=== PATIENT | female | born 1985 ===

== ENCOUNTER 2021-10-07 09:08 | Outpatient (REF) | payer OTHER, SELFPAY ==
[2021-10-07 12:49] LABS: Thyroid Stimulating Hormone 1.19 uIU/mL (0.32-4.0)
[2021-10-08 02:50] LABS: CT PCR DETECTED (Not Detect.); NG PCR NOT DETECTED (Not Detect.)
[2021-10-08 12:06] LABS: BV Int Neg Control Negative (Negative); BV Int Pos Control Positive (Positive)
[2021-10-09 05:06] LABS: DHEA Sulfate 57 mcg/dL (23-266)
[2021-10-10 09:57] LABS: HPV mRNA E6/E7 rflx Not Detected (Not Detected)
[2021-10-11 16:01] LABS: Testosterone, Free 1.8 pg/mL (0.1-6.4); Testosterone, Total 22 ng/dL (2-45)
== END 2021-10-07 09:09 | disposition home or self-care (01) ==
LOC: HO.LAB 09:08
PROVIDERS: PCP Nurse Practitioner Family; Visit Provider Advanced Practice Midwife
DX: Z01.419 Encounter for gynecological examination (general) (routine) without abnormal findings (principal); L70.9 Acne, unspecified; E66.8 Other obesity; R23.4 Changes in skin texture; R10.2 Pelvic and perineal pain; N89.8 Other specified noninflammatory disorders of vagina; N92.6 Irregular menstruation, unspecified; N91.2 Amenorrhea, unspecified
CPT/HCPCS: 36415; 82627; 83498; 84146; 84402; 84403; 84443; 87480; 87491; 87510; 87591; 87624; 87660; 88142

== ENCOUNTER 2021-10-11 00:30 | Emergency (ER) | payer OTHER, SELFPAY ==
[2021-10-11 00:32] VITALS: BP 128/64; PULSE 72; RESP 18; TEMP 36.8; O2SAT 97; BMI 51.9
--- NOTE | 2021-10-11 00:59 | ED_ITS ---
HPI - Back Pain/Injury General Chief Complaint: Back Pain/Injury Stated Complaint: Back pain Time Seen by Provider: 10/11/21 00:48 Source: patient Mode of arrival: ambulatory History of Present Illness HPI Narrative: 36-year-old female with history of mild asthma presents with onset of back pain on the left side near the shoulder blade after she carried a 3 gal fish tank up the stairs. This has not been associated with any urinary symptoms, nausea, vomiting, fever, chills, new cough, sore throat and patient states she is able to have full range of motion at the left shoulder but feels the pain into the anterior portion of her chest wall. She states she was able to go to sleep after taking Aleve and applying ice to her back but then was awakened and states that it feels like somebody has the knuckle of a finger in her back. Related Data Previous Rx's Medication Instructions Recorded medroxyprogesterone 10 mg tablet 10 mg PO DAILY #10 tab 10/07/21 (Provera) vitamin with calcium 1 tab PO DAILY #30 tab 10/07/21 no.72-iron 27 mg-folic acid 1 mg tablet ( Vitamins Plus Low Iron) azithromycin 500 mg tablet 1,000 mg PO ONCE 1 Days #2 tab 10/10/21 (Zithromax) metronidazole 500 mg tablet 500 mg PO BID 7 Days #14 tab 10/10/21 cyclobenzaprine 5 mg tablet 5 mg PO BEDTIME PRN #3 tab 10/11/21 ketorolac 10 mg tablet 10 mg PO Q6H PRN 5 Days #20 tab 10/11/21 Allergies Allergy/AdvReac Type Severity Reaction Status Date / Time No Known Allergies Allergy Verified 10/07/21 09:47 Review of Systems Review of Systems: Pertinent positives and negatives as stated in HPI 10 point review of systems is otherwise negative. [facility] Past Medical History Source: nursing notes reviewed Medical History Extreme obesity Seasonal allergies Surgical History Hx of breast reduction, elective Hx of tonsillectomy Social History Social History Patient Tobacco Use Status: Never used Tobacco Advance Directives: No Advance Directives Information Provided: No Patient : No Physical Exam Vital Signs: Vital Signs: Last Vital Signs Temp 98.3 F 10/11/21 00:32 Pulse 72 10/11/21 00:32 Resp 18 10/11/21 00:32 BP 128/64 10/11/21 00:32 Pulse Ox 97 10/11/21 00:32 Body Mass Index 51.9 VITAL SIGNS: Reviewed. GENERAL: Obese, Well developed, well nourished, in no acute distress. HEAD: Normocephalic/atraumatic EYES: PERRLA, EOMI OROPHARYNX: no oral lesions noted, posterior pharynx clear LUNGS: Normal breath sounds. No adventitious sounds or accessory muscle use. SpO2<97> CARDIOVASCULAR: Regular rate and rhythm without noted murmurs, no JVD or lower extremity edema. ABDOMEN: Soft, non-tender, non-distended with bowel sounds, no CVA tenderness BACK: Noted muscle spasm to the medial aspect of the left scapula with reproducible pain on palpation SKIN: Inspection of the skin reveals no rashes NEUROLOGIC: Alert and oriented x 4. Course Course Course Narrative: 36-year-old female with history and clinical presentation consistent with muscle spasm. There is low clinical suspicion for any intrathoracic/renal etiology. Patient will be provided with combination analgesics and re-evaluated. On re-evaluation, patient states that she is feeling much better and is otherwise discharged home in stable condition. Discharge Plan Discharge Clinical Impression: Muscle spasm Patient Disposition: Home, Self-Care Instructions: Muscle Spasm (ED) Additional Instructions: 1. Tylenol 1000 mg, orally, every 6 hours as needed for pain control. Do not exceed 4000 mg within 24 hours. 2. Lidocaine patch, this is available [id number], should be apply to area of maximal tenderness as directed on the outside packaging. 3. Continue to do the stretching exercises that were demonstrated here in the emergency room. Do not hesitate to return to the emergency room should you develop any acute worsening of symptoms. Prescriptions: New cyclobenzaprine 5 mg tablet 5 mg PO BEDTIME PRN (Reason: muscle spasm) Qty: 3 RF: 0 ketorolac 10 mg tablet 10 mg PO Q6H PRN (Reason: pain) 5 Days Qty: 20 RF: 0 No Action azithromycin [Zithromax] 500 mg tablet 1,000 mg PO ONCE 1 Days Qty: 2 RF: 0 metronidazole 500 mg tablet 500 mg PO BID 7 Days Qty: 14 RF: 0 medroxyprogesterone [Provera] 10 mg tablet 10 mg PO DAILY Qty: 10 RF: 0 Vitamin Plus Low Iron 27 mg iron- 1 mg tablet 1 tab PO DAILY Qty: 30 RF: 11 Referrals: David Martinez, [facility] [Primary Care Provider] - 2 days
[2021-10-11] MEDS: Ketorolac Tromethamine 15 MG/ML VIAL IM (01:20)
[2021-10-11] MEDS: Acetaminophen 325 MG TABLET 975 MG PO (01:20)
[2021-10-11] MEDS: Cyclobenzaprine HCl 5 MG TABLET PO (01:21)
[2021-10-11] MEDS: Lidocaine 4 % Patch ADH..PATCH 1 PATCH TRANSDERMA (01:22)
[2021-10-11 02:44] VITALS: BP 151/92; PULSE 76; RESP 20; TEMP 36.2; O2SAT 99
== END 2021-10-11 02:45 | disposition home or self-care (01) ==
PROVIDERS: Emergency Provider Student in an Organized Health Care Education/Training Program; PCP Nurse Practitioner Family
DX: M62.838 Other muscle spasm (principal); J45.909 Unspecified asthma, uncomplicated
CPT/HCPCS: 96372; 99283; 99284; J1885

== ENCOUNTER 2021-11-19 12:12 | Outpatient (REF) | payer OTHER, SELFPAY ==
--- NOTE | ~2021-11-19 | US_ITS ---
EXAMINATION: US PELVIS CLINICAL INFORMATION: Irregular menstruation COMPARISON: None TECHNIQUE: Ultrasound of the pelvis is performed using both transabdominal and transvaginal transducers along with Doppler. Transvaginal imaging is performed due to inadequate visualization transabdominally. FINDINGS: Uterus: The uterus is anteverted and measures 10.0 x 6.8 x 5.9 cm. The double wall endometrial thickness is 47 mm. The uterus is smooth in contour and has heterogeneous myometrial echogenicity. No visible fibroid. Adnexa: Both ovaries are visualized. There is normal color flow to the adnexa. There is no ovarian torsion. There is no pelvic ascites or fluid collection. Right ovary measures 3.4 x 2.5 x 3.1 cm. Left ovary measures 4.0 x 3.0 x 3.4 cm. There is a 3.0 x 2.9 x 3.5 cm cyst in the left ovary. US/US pelvic and transvaginal IMPRESSION: 1. 3.5 cm left ovarian cyst. 2. Diffusely heterogeneous echotexture of the uterus. This may suggest adenomyosis. Consider pelvic MRI for further evaluation if warranted.
== END 2021-11-19 12:13 | disposition home or self-care (01) ==
LOC: HO.US 12:12
PROVIDERS: PCP Nurse Practitioner Family; Visit Provider Advanced Practice Midwife
DX: N92.6 Irregular menstruation, unspecified (principal); E66.8 Other obesity; L70.9 Acne, unspecified; R23.4 Changes in skin texture
CPT/HCPCS: 76830; 76856

== ENCOUNTER → 2021-11-26 10:46 | Outpatient (BNVA) | payer OTHER, SELFPAY | PROVIDERS: PCP Nurse Practitioner Family; Visit Provider Advanced Practice Midwife | DX: Z71.2 Person consulting for explanation of examination or test findings (principal) | CPT/HCPCS: 99212 ==

== ENCOUNTER 2022-01-10 09:14 | Outpatient (REF) | payer OTHER, SELFPAY ==
[2022-01-11 14:24] LABS: BV Int Neg Control Negative (Negative); BV Int Pos Control Positive (Positive)
[2022-01-11 15:00] LABS: CT PCR NOT DETECTED (Not Detect.); NG PCR NOT DETECTED (Not Detect.)
== END 2022-01-10 09:15 | disposition home or self-care (01) ==
LOC: HO.LAB 09:14
PROVIDERS: PCP Nurse Practitioner Family; Visit Provider Advanced Practice Midwife
DX: A74.9 Chlamydial infection, unspecified (principal); Z20.2 Contact with and (suspected) exposure to infections with a predominantly sexual mode of transmission; Z71.89 Other specified counseling
CPT/HCPCS: 87480; 87491; 87510; 87591; 87660; 99212

== ENCOUNTER → 2022-03-21 14:52 | Outpatient (BNVA) | payer OTHER, SELFPAY | PROVIDERS: PCP Nurse Practitioner Family; Referring Provider Nurse Practitioner Family; Visit Provider Physician Assistant | DX: Z13.89 Encounter for screening for other disorder (principal) ==

== ENCOUNTER 2022-05-05 13:46 | Outpatient (REF) | payer OTHER, SELFPAY ==
[2022-05-06 06:29] LABS: CT PCR NOT DETECTED (Not Detect.); NG PCR NOT DETECTED (Not Detect.)
[2022-05-06 11:02] LABS: BV Int Neg Control Negative (Negative); BV Int Pos Control Positive (Positive)
== END 2022-05-05 13:47 | disposition home or self-care (01) ==
LOC: HO.LAB 13:46
PROVIDERS: PCP Nurse Practitioner Family; Visit Provider Advanced Practice Midwife
DX: Z11.3 Encounter for screening for infections with a predominantly sexual mode of transmission (principal); N94.9 Unspecified condition associated with female genital organs and menstrual cycle; R30.0 Dysuria; Z20.2 Contact with and (suspected) exposure to infections with a predominantly sexual mode of transmission
CPT/HCPCS: 81003; 87480; 87491; 87510; 87591; 87660; 99212

== ENCOUNTER → 2022-05-28 12:26 | Outpatient (BNVA) | payer OTHER, SELFPAY | PROVIDERS: PCP Nurse Practitioner Family; Visit Provider Physician Assistant | DX: E66.01 Morbid (severe) obesity due to excess calories (principal); Z68.42 Body mass index [BMI] 45.0-49.9, adult | CPT/HCPCS: 99202; 99211 ==

== ENCOUNTER 2022-05-28 16:14 | Outpatient (REF) | payer OTHER, SELFPAY ==
[2022-05-31 14:11] LABS: H Pylori Breath Test Positive (Negative)
== END 2022-05-28 16:15 | disposition home or self-care (01) ==
LOC: HO.LNP 16:14
PROVIDERS: Visit Provider Physician Assistant
DX: E66.01 Morbid (severe) obesity due to excess calories (principal)
CPT/HCPCS: 83013

== ENCOUNTER 2022-06-16 07:31 | Outpatient (REF) | payer OTHER, SELFPAY ==
--- NOTE | ~2022-06-16 | XR_ITS ---
EXAMINATION: XR CHEST CLINICAL INFORMATION: Morbid obesity COMPARISON: None TECHNIQUE: 2 views of the chest were obtained. FINDINGS: Normal symmetric lung volumes. No parenchymal consolidation. No pleural effusion. No pneumothorax. Cardiomediastinal silhouette and pulmonary vascularity are within normal limits. No acute osseous abnormalities. XR/XR chest 2V IMPRESSION: Lungs are clear.
--- NOTE | 2022-06-16 07:39 | ECG_ITS ---
Test Reason : morbid obesity Blood Pressure : / mmHG Vent. Rate : 069 BPM Atrial Rate : 069 BPM P-R Int : 140 ms QRS Dur : 086 ms QT Int : 376 ms P-R-T Axes : 018 026 014 degrees QTc Int : 402 ms Normal sinus rhythm Normal ECG No previous ECGs available Referred By: Sheri Mejia Electronically Signed By:Aries Joe
[2022-06-16 08:05] LABS: MANUAL DIFF FLAG NO
[2022-06-16 08:54] LABS: Basophils Percent Auto 0.5 % (0-2); Eosinophils Absolute Auto 0.2 X10*3/uL (0.0-0.4); Eosinophils Percent Auto 2.6 % (0-4); Hematocrit 40.4 % (37.0-47.0); Hemoglobin 13.5 g/dl (12.0-16.0); Imm Gran Abs Auto 0.02 X10*3/uL (0.00-0.03); Imm Gran Pct Auto 0.3 % (0.0-0.4); Lymphocytes Absolute Auto 1.9 X10*3/uL (1.2-4.9); Lymphocytes Percent Auto 31.4 % (20-40); Mean Corpuscular HGB Conc 33.4 g/dl (31.0-35.0); Mean Corpuscular Hemoglobin 29.3 pg (27.0-33.0); Mean Corpuscular Volume 87.8 fL (80.0-98.0); Mean Platelet Volume 9.4 fL (9.4-12.3); Monocytes Absolute Auto 0.4 X10*3/uL (0.1-1.2); Neutrophils Absolute Auto 3.6 x10*3/uL (2.0-8.3); Neutrophils Percent Auto 58.2 % (45-73); Platelet Count 370 X10*3/uL (160-400); Red Cell Distribution Width 13.3 % (11.0-16.0); White Blood Count 6.2 X10*3/uL (4.8-10.8)
[2022-06-16 08:56] LABS: Estimated Average Glucose 103 mg/dL; Hemoglobin A1c % 5.2 %
[2022-06-16 09:35] LABS: Alanine Aminotransferase 19 U/L (0-31); Alkaline Phosphatase 74 U/L (39-117); Anion Gap 11 (12-20); Aspartate Amino Transferase 18 U/L (5-31); Bilirubin Total 0.5 mg/dL (0.0-1.0); Blood Urea Nitrogen 11 mg/dL (9-16); C Reactive Protein 0.63 mg/dL (< or = 0.50); Calcium 9.1 mg/dL (8.4-10.2); Carbon Dioxide 28 mmol/L (22-29); Chloride 105 mmol/L (96-108); Cholesterol 175 mg/dL; Estimated Glomerular Filt Rate > 60; Glucose Fasting 92 mg/dL (60-99); HDL Cholesterol 45 mg/dL; Iron 58 mcg/dL (30-160); LDL Cholesterol Calculated 113 mg/dl; Percent Iron Saturation 16 % (15-50); Potassium 4.5 mmol/L (3.3-5.1); Sodium 139 mmol/L (135-145); Total Iron Binding Capacity 358 mcg/dL (228-428); Total Protein 7.1 g/dL (6.5-8.0); Triglycerides 86 mg/dL; Unsaturated Iron Binding 300 ug/dL
[2022-06-16 09:39] LABS: Ferritin 18 ng/mL (10-122); Vitamin D 25-OH Total 20.2 ng/mL (>30)
[2022-06-16 09:41] LABS: Appearance Urine CLEAR; Color Urine YELLOW; Glucose Urine UA NEG (NEG); Leukocyte Esterase Urine NEG (NEG); Nitrite Urine NEG (NEG); Specific Gravity - Urine >= 1.030 (1.005-1.025); Urine Blood NEG (NEG); Urine Ketones NEG (NEG); Urine Protein NEG (NEG-TRACE)
[2022-06-16 09:51] LABS: Insulin 21 uU/mL (2-29)
[2022-06-16 09:58] LABS: Folate 14.8 ng/mL (> or = 4.0); Vitamin B12 351 pg/mL (200-900)
[2022-06-18 12:55] LABS: Calcium (PTHI) 9.3 mg/dL (8.6-10.2); PTHI 45 pg/mL (16-77)
[2022-06-20 15:56] LABS: Zinc 76 mcg/dL (60-130)
[2022-06-21 14:56] LABS: Vitamin B1 10 nmol/L (8-30)
[2022-06-21 23:52] LABS: Vitamin A 39 mcg/dL (38-98)
== END 2022-06-16 07:32 | disposition home or self-care (01) ==
LOC: HO.XRAY 07:31
PROVIDERS: Absent Provider Nurse Practitioner Family; PCP Nurse Practitioner Family; Visit Provider Physician Assistant
DX: Z00.00 Encounter for general adult medical examination without abnormal findings (principal); E66.01 Morbid (severe) obesity due to excess calories; F43.23 Adjustment disorder with mixed anxiety and depressed mood; F43.21 Adjustment disorder with depressed mood
CPT/HCPCS: 36415; 71046; 80053; 80061; 81003; 82306; 82607; 82728; 82746; 83036; 83525; 83540; 83970; 84425; 84443; 84590; 84630; 85025; 86140; 90791; 93005

== ENCOUNTER → 2022-06-17 07:47 | Outpatient (BNVA) | payer OTHER, SELFPAY | PROVIDERS: PCP Nurse Practitioner Family; Visit Provider Physician Assistant | DX: K59.09 Other constipation (principal); F43.21 Adjustment disorder with depressed mood | CPT/HCPCS: 99202; 99212 ==

== ENCOUNTER → 2022-06-23 14:58 | Outpatient (BNVA) | payer OTHER, SELFPAY | PROVIDERS: PCP Nurse Practitioner Family; Visit Provider Dietitian, Registered | DX: E66.01 Morbid (severe) obesity due to excess calories (principal); Z71.3 Dietary counseling and surveillance | CPT/HCPCS: 97802 ==

== ENCOUNTER 2022-09-29 | Outpatient (REF) | payer OTHER, SELFPAY | END 2022-09-29 00:01 | disposition home or self-care (01) | LOC: HO.HOSX | PROVIDERS: Visit Provider Physician Assistant | DX: Z13.89 Encounter for screening for other disorder (principal) ==

== ENCOUNTER 2023-09-23 09:26 | Outpatient (AMB) | payer OTHER, SELFPAY ==
--- NOTE | 2023-09-23 09:27 | A.OFFPC_ITS ---
Vital Signs 09/23/23 09:30 Height 5 ft 5 in Weight 283 lb BMI 47.1 BP 118/78 Pulse 78 Pulse Source Pulse Oximeter Pulse Oximetry (%) 98 Oxygen Delivery Method Room Air Intake Visit Reasons: F/U Allergies No Known Allergies Allergy (Verified 09/23/23 09:30) Medication List - Last Reconciled 09/23/23 by NOMAN Kramer sumatriptan succinate take 1 tab at onset of headache; if no relief may repeat 1 tab after at least 2 hrs; max = 4 tabs/24 hr PO Tobacco use date assessed: 09/23/23 Dental Screening Dental Screen Date: 09/23/23 Did you have a dental visit in the last 12 months?: Yes Did you have a dental problem in the last 6 months where you did not have access to dental care?: No Was dental information given to patient?: Patient has dentist HPI F/U HPI Details Pt is here for a PE. Will order labs. Pt c/o bilat headaches. She has tried OTC meds with no relief. Will send sumatriptan. Will also order head CT. Pt reports hair loss. ? PCOS component. Will refer to dermatology. Pt is interested in medical weight loss. Will refer to bariatrics. [facility] Medical History Extreme obesity Grief reaction Seasonal allergies Surgical History Hx of breast reduction, elective Hx of tonsillectomy Family History Paternal Uncle No problems noted. Maternal Uncle Substance use disorder Mother Mental health disorder Social History Housing: Apartment Patient Tobacco Use Status: Never used Tobacco e-Cigarette/Vaping Use: Never Used Second Hand Smoke Exposure: No service: No Current occupational status: employed Current occupation: [employer] Current occupational exposures/hazards: No Cognitive needs: No Hearing needs: No Vision needs: No Female Reproductive History Menstrual Age of Menarche: 13 Questionnaire Thrive Questionnaire Date Thrive assessed: 04/24/22 JOSE ELIAS-7 AMB Questionnaire JOSE ELIAS-7 Date JOSE ELIAS - 7 assessed: 04/24/22 Source: Developed by Drs. Kingston Chamberlain, Aspen Fowler, José Miguel Holland and colleagues, with an educational kathleen from [employer]. Review of Systems Const Denies chills and Denies fever(s) Eyes Denies blurry vision ENT Denies vertigo, Denies dizziness and Denies sore throat Card Denies chest pain at rest, Denies chest pain with activity, Denies diaphoresis, Denies dyspnea and Denies dyspnea on exertion Resp Denies cough, Denies dyspnea, Denies dyspnea on exertion and Denies wheezing GI Denies abdominal pain, Denies melena, Denies hematochezia, Denies constipation, Denies diarrhea and Denies loose stools Denies hematuria Musc Denies numbness and Denies tingling Skin/Breast Denies lesions Neuro Denies vertigo, Denies dizziness, Denies numbness and Denies tingling Psych Denies anxiety, Denies depression, Denies homicidal ideation, Denies suicidal ideation and Denies other (substance abuse) Aller/Immun Denies wheezing Physical exam (Primary Care) Vital Signs: Last Vital Signs Pulse 78 09/23/23 09:30 BP 118/78 09/23/23 09:30 Pulse Ox 98 09/23/23 09:30 Oxygen Delivery Method Room Air 09/23/23 09:30 BMI result Body Mass Index 47.1 Tobacco/Smoking Status: Tobacco use Status Tobacco use date assessed 09/23/23 09/23/23 09:32 Patient Tobacco Use Status Never used Tobacco 09/23/23 09:27 e-Cigarette/Vaping Use Never Used 09/23/23 09:27 Thrive Assessment: Date of Thrive Assessment Date Thrive assessed 04/24/22 09/23/23 09:27 Const General: cooperative Nutritional Appearance: obese morbidly obese Orientation/consciousness: patient oriented x3 HENMT Head: Yes normal to inspection, Yes normocephalic and Yes atraumatic Ears: TM's normal bilaterally Eyes General: appearance normal, both eyes and all related structures Alignment and Position: alignment normal and position normal Neck Neck: Yes normal visual inspection and Yes no lymphadenopathy Thyroid: Thyroid normal Resp Effort & Inspection: normal respiratory effort Auscultation: clear to auscultation bilaterally Cardio Rate: regular rate Rhythm: regular rhythm Heart sounds: S1 normal heart sound present, S2 normal heart sound present and no murmurs GI Palpation (GI): Soft to palpation and nontender Auscultation: normal bowel sounds Skin Other: balding Rashes: no rashes Neuro General: patient oriented x3, moves all extremities, no focal motor deficits, CN's II-XI intact bilaterally and deep tendon reflexes 2+ bilaterally Romberg Test: Negative Psych Appearance: grossly normal Mental Status: mental status grossly normal Speech and movement: Normal speech and movement present Affect: normal affect Attitude: cooperative Thought process: Normal thought process present Thought content: Normal thought content present Insight: Good insight present (Psych) Judgement: Good judgement present (Psych) Assessment and Plan Assessment & Plan (1) Physical exam: Code(s): Z00.00 - Encounter for general adult medical examination without abnormal findings Plan: Labs ordered (2) Bilateral headaches: Code(s): R51.9 - Headache, unspecified Plan: Sumatriptan sent, CT ordered (3) Morbid obesity: Code(s): E66.01 - Morbid (severe) obesity due to excess calories Plan: Referred to bariatric (4) Hair loss: Code(s): L65.9 - Nonscarring hair loss, unspecified Plan: Referred to dermatology Plan The patient agreed to the use of a certified medical biller for this encounter. Scribed for NOMAN Reyna by Jaquelin Roque certified medical biller, on 09/23/2023 at 09:40 EST Orders: Orders Complete Blood Count Auto Diff Today Z00.00 - Encounter for general adult medical examination without abnormal findings Comprehensive Termo. Panel Fast Today Z00.00 - Encounter for general adult medical examination without abnormal findings TSH reflex Free T4 Today Z00.00 - Encounter for general adult medical examination without abnormal findings UA CC w/rflx Micro + Cult Today Z00.00 - Encounter for general adult medical examination without abnormal findings Lipid Panel Today Z00.00 - Encounter for general adult medical examination without abnormal findings CT head/brain wo IV con Today R51.9 - Headache, unspecified Referrals Bariatric Surgery Referral E66.01 - Morbid (severe) obesity due to excess calories Dermatology Referral L65.9 - Nonscarring hair loss, unspecified Medications: New sumatriptan succinate take 1 tab at onset of headache; if no relief may repeat 1 tab after at least 2 hrs; max = 4 tabs/24 hr PO 10 tabs 0RF Coding Level of Care Code Est Pt Prev Care 18-39y([id number]) Diagnoses Physical exam Z00.00 Bilateral headaches R51.9 Morbid obesity E66.01 Hair loss L65.9
[2023-09-23 09:30] VITALS: BP 118/78; PULSE 78; O2SAT 98; BMI 47.1
== END 2023-09-23 14:18 | disposition home or self-care (01) ==
PROVIDERS: PCP Nurse Practitioner Family; Visit Provider Nurse Practitioner Family
DX: Z00.00 Encounter for general adult medical examination without abnormal findings (principal); E66.01 Morbid (severe) obesity due to excess calories; Z68.42 Body mass index [BMI] 45.0-49.9, adult; R51.9 Headache, unspecified; L65.9 Nonscarring hair loss, unspecified
CPT/HCPCS: 99395

== ENCOUNTER 2023-11-10 10:04 | Outpatient (AMB) | payer OTHER, SELFPAY ==
--- NOTE | 2023-11-10 11:06 | A.OFFVIS_ITS ---
Intake VS Expanded 11/10/23 11:17 Height 5 ft 5 in Intake Visit Reasons: TV Re-Establishing SWL Allergies No Known Allergies Allergy (Verified 11/10/23 11:06) Medication List - Last Reconciled 11/10/23 by Kendell Balderrama MD albuterol 90 mcg/actuation mcg inhalation sumatriptan succinate take 1 tab at onset of headache; if no relief may repeat 1 tab after at least 2 hrs; max = 4 tabs/24 hr PO HPI TV Re-Establishing SWL HPI Details Start time: 11.00am, End time: 11.45am ?I spent 35 minutes speaking with the patient on the phone plus an additional 10 minutes reviewing and updating records for a total of 45 minutes HPI Comments History of Present Illness Details Previous weight loss efforts: HM program: 12 lbs, had to quit as her passed Wakes up: 6am, sleeps: 9pm Breakfast: skips Lunch: skips Dinner: 5pm (salad or rice) Snacks: 1pm (fruit and crackers), 7pm (fruit or crackers) Exercise: walking Fluids: Coffee: none, Tea: rarely, soda: rarely (Gingerale), juice: daily a lot (applejuice and orange juice), ETOH: 1-2 per month PFSH Medical History (Updated 11/10/23 @ 11:09 by Kendell Balderrama MD) Migraines GERD (gastroesophageal reflux disease) Grief reaction Extreme obesity Seasonal allergies Surgical History Hx of breast reduction, elective Hx of tonsillectomy Family History Paternal Uncle No problems noted. Maternal Uncle Substance use disorder Mother Mental health disorder Social History Housing: Apartment Patient Tobacco Use Status: Never used Tobacco e-Cigarette/Vaping Use: Never Used Second Hand Smoke Exposure: No service: No Current occupational status: employed Current occupation: [employer]abil[employer] Current occupational exposures/hazards: No Cognitive needs: No Hearing needs: No Vision needs: No Female Reproductive History Menstrual Age of Menarche: 13 Assessment & Plan Assessment & Plan (1) Morbid obesity: Code(s): E66.01 - Morbid (severe) obesity due to excess calories Plan: 1.? Plan for lap sleeve gastrectomy. If diaphragmatic or ventral hernias are present at time of surgery, these will be repaired laparoscopically as well. Risks and complications were discussed in detail including possible conversion to an open procedure, anastomotic leak, bleeding requiring transfusion, small bowel obstruction, , DVT and pulmonary embolism, cardiac, or pulmonary complications, as shelter complications such as anastomotic ulcer, insufficient weight loss and vitamin deficiencies. I emphasized the importance of close follow-up, adherence to instructions and good communication. 2. Nutritional counseling. Start with 2 Isopure INFUSIONS protein shakes (buy at [employer], [employer], [employer], [employer]) (ONE scoop EACH in 8oz water) at 7am-9am and 10am-12pm, 2 protein bars (Zone Perfect protein bars, buy at [employer], [employer], [employer], or [employer]) at 1pm-3pm and 4pm-6pm and dinner at 7pm (10 forks of protein and 10 forks of salad/vegetables). So you do 2 protein shakes, 2 protein bars and one meal per day. Meal to include lean meat (beef, fish, pork, turkey, chicken), or nauruan yogurt, or egg whites, or beans with a salad with olive oil and fruits (berries, pears, apples, kiwi). Avoid salt, breads, potatoes, rice, pasta, desserts. 3. Each shake would be drunk slowly, like coffee in a period of 2 hours. 4. Cut each bar in 4 pieces and eat each piece in 30min ?to make each bar last 2 hours. 5. I emphasized the importance of measuring accurately the food portion and measure it when serving the food in plate 6. The meal portions include 10 full-size forks of meat and 10 full-size forks of salad. You always eat the meat portion but you can replace up to 5 forks for salad/vegetables with rice, potatoes or pasta, or a fruit ?if you like. The less you do it the better weight loss will be. 7. One full-size fork is what it can be scooped on the fork without falling aside and not what can be bit with the fork. Use regular forks like those you find in a typical restaurant. 8.? Please send me weight measurements as soon as possible and then once a week. Always include your diet and exercise plan. 9. Start walking outside daily, tracking calories with a goal of 300 calories per day, daily. Goal is to burn 2000 calories per week on exercise, which means either 300 calories daily, or 400 calories 5 days per week, or 500 calories 4 days per week, or 650 calories 3 days per week. 10. The best choice would be to purchase a stationary bike, elliptical or treadmill at home that can track calories. Let me know if you do so I can give you an exercise plan. 11.?It is important of avoiding and for at least 18 months postoperatively and has been discussed at the infosession. 12. Goal is to lose at least 1.5-2lbs per week 13. Goal to lose 10% of your weight before surgery, which is about 28lbs. Ultimate weight goal: 254lbs before surgery 14. Please follow the diet plan exactly without any change. If you don't like something about the plan or you feel hungry you need to communicate with me so I can help you revise the plan. You should not change the plan yourself. Orders: Orders Hemoglobin A1c Today E66.01 - Morbid (severe) obesity due to excess calories, K21.9 - Gastro-esophageal reflux disease without esophagitis Complete Blood Count Auto Diff Today E66.01 - Morbid (severe) obesity due to excess calories, K21.9 - Gastro-esophageal reflux disease without esophagitis Lipid Panel Today E66.01 - Morbid (severe) obesity due to excess calories, K21.9 - Gastro-esophageal reflux disease without esophagitis IRON PROFILE Today E66.01 - Morbid (severe) obesity due to excess calories, K21.9 - Gastro-esophageal reflux disease without esophagitis Zinc Today E66.01 - Morbid (severe) obesity due to excess calories, K21.9 - Gastro-esophageal reflux disease without esophagitis Vitamin B1 Today E66.01 - Morbid (severe) obesity due to excess calories, K21.9 - Gastro-esophageal reflux disease without esophagitis TSH reflex Free T4 Today E66.01 - Morbid (severe) obesity due to excess calories, K21.9 - Gastro-esophageal reflux disease without esophagitis Vitamin D 25-OH Total Today E66.01 - Morbid (severe) obesity due to excess calories, K21.9 - Gastro-esophageal reflux disease without esophagitis XR chest 2V Today E66.01 - Morbid (severe) obesity due to excess calories, K21.9 - Gastro-esophageal reflux disease without esophagitis ECG 12 lead EKG Today E66.01 - Morbid (severe) obesity due to excess calories, K21.9 - Gastro-esophageal reflux disease without esophagitis Insulin Today E66.01 - Morbid (severe) obesity due to excess calories, K21.9 - Gastro-esophageal reflux disease without esophagitis H Pylori Breath Test Today E66.01 - Morbid (severe) obesity due to excess calories, K21.9 - Gastro-esophageal reflux disease without esophagitis Comprehensive Met. Panel Today E66.01 - Morbid (severe) obesity due to excess calories, K21.9 - Gastro-esophageal reflux disease without esophagitis Vitamin B12 and Folate Today E66.01 - Morbid (severe) obesity due to excess calories, K21.9 - Gastro-esophageal reflux disease without esophagitis C Reactive Protein Today E66.01 - Morbid (severe) obesity due to excess calories, K21.9 - Gastro-esophageal reflux disease without esophagitis Vitamin A Today E66.01 - Morbid (severe) obesity due to excess calories, K21.9 - Gastro-esophageal reflux disease without esophagitis Ferritin Today E66.01 - Morbid (severe) obesity due to excess calories, K21.9 - Gastro-esophageal reflux disease without esophagitis US abdomen comp w elastography Today E66.01 - Morbid (severe) obesity due to excess calories, K21.9 - Gastro-esophageal reflux disease without esophagitis FL upper GI w air Today E66.01 - Morbid (severe) obesity due to excess calories, K21.9 - Gastro-esophageal reflux disease without esophagitis Referrals Behavioral Health Referral E66.01 - Morbid (severe) obesity due to excess calories, K21.9 - Gastro-esophageal reflux disease without esophagitis Nutrition/Dietitian Referral E66.01 - Morbid (severe) obesity due to excess calories, K21.9 - Gastro-esophageal reflux disease without esophagitis Telehealth Telehealth Location of provider rendering services: practice address Location of patient: address on file Patient Identification confirmed using: Name, : Yes Telehealth method: voice only Patient verbally consented to treatment: Yes Patient verbally consented to billing insurance company: Yes Patient informed of any privacy concerns related to visit: Yes Minutes spent on Phone/Video with Pt.: 45 Coding Level of Care Code Tele New Pt Level 4 (16159) Diagnoses Morbid obesity E66.01 Time Spent (min) 45
== END 2023-11-10 11:46 | disposition home or self-care (01) ==
LOC: HO.HBS 10:04
PROVIDERS: PCP Nurse Practitioner Family; Visit Provider Surgery
DX: E66.01 Morbid (severe) obesity due to excess calories (principal)
CPT/HCPCS: 99204

== ENCOUNTER → 2023-11-10 10:04 | Outpatient (BNVA) | payer OTHER, SELFPAY | PROVIDERS: PCP Nurse Practitioner Family; Visit Provider Surgery ==

== ENCOUNTER 2023-11-11 12:22 | Outpatient (REF) | payer OTHER, SELFPAY ==
--- NOTE | ~2023-11-11 | XR_ITS ---
EXAMINATION: XR CHEST CLINICAL INFORMATION: Morbid severe obesity due to excess calories. COMPARISON: 06/16/2022 TECHNIQUE: 2 views of the chest were obtained. FINDINGS: There is no gross pneumothorax. Lung volumes are low. Heart size is normal. No pleural effusion. No focal consolidation to suggest pneumonia. XR/XR chest 2V IMPRESSION: Low lung volumes. No evidence of pneumonia.
[2023-11-11 14:09] LABS: MANUAL DIFF FLAG NO
[2023-11-11 14:44] LABS: Basophils Percent Auto 0.4 % (0-2); Eosinophils Absolute Auto 0.1 X10*3/uL (0.0-0.4); Eosinophils Percent Auto 1.9 % (0-4); Hematocrit 43.1 % (37.0-47.0); Hemoglobin 14.2 g/dl (12.0-16.0); Imm Gran Abs Auto 0.02 X10*3/uL (0.00-0.03); Imm Gran Pct Auto 0.4 % (0.0-0.4); Lymphocytes Absolute Auto 1.8 X10*3/uL (1.2-4.9); Lymphocytes Percent Auto 33.4 % (20-40); Mean Corpuscular HGB Conc 32.9 g/dl (31.0-35.0); Mean Corpuscular Hemoglobin 28.2 pg (27.0-33.0); Mean Corpuscular Volume 85.5 fL (80.0-98.0); Mean Platelet Volume 9.2 fL (9.4-12.3); Monocytes Absolute Auto 0.4 X10*3/uL (0.1-1.2); Monocytes Percent Auto 7.1 % (2-11); Neutrophils Percent Auto 56.8 % (45-73); Platelet Count 366 X10*3/uL (160-400); Red Blood Count 5.04 X10*6/uL (4.20-5.50); Red Cell Distribution Width 13.1 % (11.0-16.0); White Blood Count 5.3 X10*3/uL (4.8-10.8)
[2023-11-11 14:53] LABS: Estimated Average Glucose 105 mg/dL; Hemoglobin A1c % 5.3 % (<6.0)
[2023-11-11 15:17] LABS: Alanine Aminotransferase 16 U/L (0-31); Albumin Level 4.3 g/dL (3.5-5.0); Alkaline Phosphatase 94 U/L (39-117); Anion Gap 15 (12-20); Aspartate Amino Transferase 17 U/L (5-31); Bilirubin Total 0.6 mg/dL (0.0-1.0); Blood Urea Nitrogen 12 mg/dL (9-16); C Reactive Protein 0.87 mg/dL (< or = 0.50); Carbon Dioxide 26 mmol/L (22-29); Chloride 102 mmol/L (96-108); Cholesterol 183 mg/dL (<200); Estimated Glomerular Filt Rate > 60; Glucose Fasting 85 mg/dL (60-99); Glucose Random 85 mg/dL (60-115); HDL Cholesterol 51 mg/dL (>40); Iron 135 mcg/dL (30-160); LDL Cholesterol Calculated 114 mg/dL (<100); Percent Iron Saturation 38 % (15-50); Potassium 3.8 mmol/L (3.3-5.1); Sodium 139 mmol/L (135-145); Total Iron Binding Capacity 359 mcg/dL (228-428); Total Protein 8.3 g/dL (6.5-8.0); Triglycerides 94 mg/dL (<150); Unsaturated Iron Binding 224 ug/dL
[2023-11-11 15:18] LABS: Cholesterol 184 mg/dL (<200); HDL Cholesterol 51 mg/dL (>40); LDL Cholesterol Calculated 114 mg/dL (<100); Triglycerides 96 mg/dL (<150)
[2023-11-11 15:31] LABS: TSH reflex Free T4 0.98 uIU/mL (0.32-4.0)
[2023-11-11 15:34] LABS: Ferritin 24 ng/mL (10-122); Insulin 12 uU/mL (2-29); TSH reflex Free T4 0.96 uIU/mL (0.32-4.0); Vitamin D 25-OH Total 20.4 ng/mL (>30)
[2023-11-11 15:45] LABS: Folate 11.6 ng/mL (> or = 4.0); Vitamin B12 569 pg/mL (200-900)
[2023-11-12 07:53] LABS: Syphilis Screen Nonreactive (Nonreactive)
[2023-11-12 08:10] LABS: HBc Num1 0.11 S/CO (0.00-0.79); HIV AB/AG Nonreactive (Nonreactive); HIV Num 1 0.04 S/CO (0.00-0.99); Hepatitis B Core Antibody Nonreactive (Nonreactive); ~Hepatitis C Antibody Nonreactive (Nonreactive)
[2023-11-15 09:39] LABS: Zinc 73 mcg/dL (60-130)
[2023-11-15 20:09] LABS: Vitamin A 26 mcg/dL (38-98)
[2023-11-17 15:08] LABS: Vitamin B1 10 nmol/L (8-30)
== END 2023-11-11 12:23 | disposition home or self-care (01) ==
LOC: HO.LAB 12:22
PROVIDERS: Advanced Practice Midwife; Absent Provider Nurse Practitioner Family; PCP Nurse Practitioner Family; Visit Provider Surgery
DX: Z00.00 Encounter for general adult medical examination without abnormal findings (principal); Z11.4 Encounter for screening for human immunodeficiency virus [HIV]; E66.01 Morbid (severe) obesity due to excess calories; K21.9 Gastro-esophageal reflux disease without esophagitis; Z20.2 Contact with and (suspected) exposure to infections with a predominantly sexual mode of transmission
CPT/HCPCS: 36415; 71046; 80053; 80061; 82306; 82607; 82728; 82746; 83036; 83525; 83540; 84425; 84443; 84590; 84630; 85025; 86140; 86704; 86780; 86803; 87389; 99395

== ENCOUNTER 2023-11-11 12:30 | Outpatient (AMB) | payer OTHER, SELFPAY ==
--- NOTE | 2023-11-11 12:58 | MHC.OFFVIS ---
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 Doing well with no concerns. She tries to eat healthy and stays active with exercise. Regular monthly menses. Currently is sexually active. Not using condoms. She denies vaginal itching and irritation. STI screening offered; she accepts. Denies family history of breast, ovarian or colon cancer. Last pap smear 2020, negative. [facility], [facility] Medical History Migraines GERD (gastroesophageal reflux disease) Grief reaction Extreme obesity Seasonal allergies Surgical History Hx of breast reduction, elective Hx of tonsillectomy Family History Paternal Uncle No problems noted. 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 Current occupational exposures/hazards: No Sexual orientation: Straight/Heterosexual Gender identity: Female Cognitive needs: No Hearing needs: No Vision needs: No Female Reproductive History Menstrual Age of Menarche: 13 Duration of menses: 3-5 days Date of last menstrual period: 10/31/23 control method: none Total pregnancies: 3 Number of Living Children: 0 Ab spontaneous: 3 Date of last pap smear: 10/08/21 Review of Systems Const All systems reviewed & are unremarkable except as noted in HPI and below Reports as per HPI Eyes Reports no additional complaints ENT Reports no additional complaints Card Reports no additional complaints Resp Reports no additional complaints GI Reports as per HPI and Reports no additional complaints Reports as per HPI Musc Reports no additional complaints Skin/Breast Reports as per HPI Neuro Reports no additional complaints Psych Reports no additional complaints Endo Reports no additional complaints John/Lymph Reports no additional complaints Aller/Immun Reports no additional complaints Physical Exam Vital Signs: Last Vital Signs BP 110/72 11/11/23 12:59 BMI result Body Mass Index 45.9 Const General: cooperative, healthy appearing, no acute distress, well developed and alert Orientation/consciousness: patient oriented x3 HEENT Head: Yes normal to inspection Eyes General: appearance normal, both eyes and all related structures Neck Neck: Yes normal visual inspection Thyroid: Thyroid normal Chest Chest palpation & inspection: normal inspection of the chest and other (no puckering, dimpling, peau de orange, retraction, discharge, masses) Breast/axilla inspection: normal inspection of the breasts Breast/axilla palpation: normal palpation of the breasts Resp Effort & Inspection: normal respiratory effort GI Inspection: Yes normal to inspection Palpation (GI): Soft to palpation Rectal Exam - Female: deferred General: Yes bladder normal to palpation External Female Exam: normal external appearance and normal appearance of the urethra Speculum Exam - Vagina: normal appearance of the vagina, normal palpation and other (White frothy discharge) Speculum Exam - Cervix: normal appearance of the cervix and normal palpation Bimanual exam- vagina & uterus: normal bimanual exam, normal palpation, uterine size normal, bladder normal to palpation, normal palpation and non-tender Bimanual Exam- Adnexa, other: no masses Skin General skin exam: no rashes or lesions noted Rashes: no rashes Neuro General: patient oriented x3 Cognition (Neuro): normal cognition Extrem General: Yes normal to inspection Psych Attitude: cooperative Thought process: Normal thought process present Assessment & Plan Assessment & Plan (1) Encounter for well woman exam with routine gynecological exam: Code(s): Z01.419 - Encounter for gynecological examination (general) (routine) without abnormal findings Plan Discussed: Current recommendations for pap smears per ASCCP guidelines. Breast awareness and periodic breast exams. Maintain a healthy lifestyle including a well balanced diet and routine exercise. Use condoms for STI and prevention. control products available based on CDC efficacy guidelines. Handout on Kyleena Mirena dispensed. Patient advised to follow-up for a consult appointment. All of her questions and concerns were addressed to the best of my ability. RTO in one year for annual hospice registered nurse examination. Orders: Orders CT NG by PCR Today Z20.2 - Contact with and (suspected) exposure to infections with a predominantly sexual mode of transmission Bacterial Vaginosis Panel Today Z20.2 - Contact with and (suspected) exposure to infections with a predominantly sexual mode of transmission Hepatitis B Core Antibody Today Z20.2 - Contact with and (suspected) exposure to infections with a predominantly sexual mode of transmission Syphilis Screen Today Z20.2 - Contact with and (suspected) exposure to infections with a predominantly sexual mode of transmission HIV Ab/Ag Today Z20.2 - Contact with and (suspected) exposure to infections with a predominantly sexual mode of transmission Hepatitis C Antibody Today Z20.2 - Contact with and (suspected) exposure to infections with a predominantly sexual mode of transmission Coding Level of Care Code Est Pt Prev Care 18-39y(65608) Diagnoses Encounter for well woman exam with routine gynecological exam Z01.419
[2023-11-11 12:59] VITALS: BP 110/72; BMI 45.9
== END 2023-11-11 14:12 | disposition home or self-care (01) ==
PROVIDERS: PCP Nurse Practitioner Family; Visit Provider Advanced Practice Midwife
DX: Z01.419 Encounter for gynecological examination (general) (routine) without abnormal findings (principal)
CPT/HCPCS: 99395

== ENCOUNTER 2023-11-11 13:25 | Outpatient (REF) | payer OTHER, SELFPAY ==
[2023-11-11 16:21] LABS: CT PCR NOT DETECTED (Not Detect.); NG PCR NOT DETECTED (Not Detect.)
[2023-11-12 11:56] LABS: BV Int Neg Control Negative (Negative); BV Int Pos Control Positive (Positive)
== END 2023-11-11 13:26 | disposition home or self-care (01) ==
LOC: HO.LNP 13:25
PROVIDERS: Visit Provider Advanced Practice Midwife
DX: Z20.2 Contact with and (suspected) exposure to infections with a predominantly sexual mode of transmission (principal)
CPT/HCPCS: 0353U; 87480; 87510; 87660

== ENCOUNTER 2023-11-20 13:58 | Outpatient (REF) | payer OTHER, SELFPAY ==
--- NOTE | ~2023-11-20 | CT_ITS ---
EXAMINATION: CT HEAD WITHOUT CONTRAST CLINICAL INFORMATION: Frontal right-sided headache. COMPARISON: None. TECHNIQUE: Contiguous axial imaging was performed from the skullbase to vertex without intravenous administration of contrast. This CT examination was performed using dose optimization techniques as appropriate, variously including the following: *Automated exposure control *Adjustment of mA and/or kV according to patient size (this includes techniques or standardized protocols for targeted exams where dose is matched to indication/reason for exam; i.e. extremities or head) *Use of iterative reconstruction technique DLP: 784 mGy-cm. FINDINGS: There is no evidence of acute intracranial hemorrhage or territorial infarction. No abnormal mass effect or midline shift is seen. [place] to white matter differentiation is well preserved. No extra-axial fluid collections are identified. Incidental partially empty sella noted. The ventricles are normal in size. There is no abnormal attenuation within the brain parenchyma. The osseous structures and soft tissues are normal. The mastoid air cells and visualized portions of the paranasal sinuses are well aerated. CT/CT head/brain wo IV con IMPRESSION: No acute intracranial pathology.
== END 2023-11-20 13:59 | disposition home or self-care (01) ==
LOC: HO.CT 13:58
PROVIDERS: PCP Nurse Practitioner Family; Visit Provider Nurse Practitioner Family
DX: R51.9 Headache, unspecified (principal)
CPT/HCPCS: 70450

== ENCOUNTER 2024-05-03 12:13 | Outpatient (AMB) | payer OTHER, SELFPAY ==
--- NOTE | 2024-05-03 12:30 | A.OFFPC_ITS ---
Vital Signs 05/03/24 12:32 Height 5 ft 5 in Weight 297 lb BMI 49.4 BP 120/76 Blood Pressure Location Rt brachial Position Sitting Pulse 76 Pulse Source Pulse Oximeter Pulse Oximetry (%) 98 Oxygen Delivery Method Room Air Intake Visit Reasons: 4M F/U missed on due to 01/25/24 insurance lapsed Intake Note: Patient here to discuss left sciatic pain that radiates down the leg and feels numb Allergies No Known Allergies Allergy (Verified 05/03/24 12:33) Medication List - Last Reconciled 05/03/24 by NIRAV Kramer-ANKITA albuterol 90 mcg/actuation mcg inhalation amitriptyline 10 mg PO BEDTIME cholecalciferol (vitamin D3) 125 mcg PO DAILY trazodone 50 mg PO BEDTIME PRN vitamin A palmitate 10,000 units PO DAILY Tobacco use date assessed: 05/03/24 Dental Screening Dental Screen Date: 05/03/24 Did you have a dental visit in the last 12 months?: Yes Did you have a dental problem in the last 6 months where you did not have access to dental care?: No Was dental information given to patient?: Patient has dentist HPI 4M F/U missed on due to 01/25/24 insurance lapsed HPI Details Pt c/o insomnia. She reports only being able to sleep for 2-3 hours per night. Pt has tried melatonin which did not help. Will send trazodone 50mg. Pt c/o left hip pain. Pt reports that the pain is worse with sitting for long periods. She reports that the pain radiates to her left thigh. She denies any popping or clicking. ? meralgia paresthetica. Recommended a stretching routine at home. Pt saw bariatrics but she would like a different provider, will refer. [facility] Medical History (Updated 05/03/24 @ 13:19 by NOMAN Kramer) Meralgia paresthetica of left side Spasm of left piriformis muscle Migraines GERD (gastroesophageal reflux disease) Grief reaction Extreme obesity Seasonal allergies Surgical History Hx of breast reduction, elective Hx of tonsillectomy Family History Paternal Uncle No problems noted. 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 1. Little interest or pleasure in doing things: nearly every day 2. Feeling down, depressed, or hopeless: nearly every day 3. Trouble falling or staying asleep, or sleeping too much: nearly every day 4. Feeling tired or having little energy: nearly every day 5. Poor appetite or overeating: nearly every day 6. Feeling bad about yourself - or that you are a failure or have let yourself or your family down: nearly every day 7. Trouble concentrating on things, such as reading the newspaper or watching television: nearly every day 8. Moving or speaking so slowly that other people could have noticed. Or the opposite - being so fidgety or restless that you have been moving around a lot more than usual: more than half the days 9. Thoughts that you would be better off or of hurting yourself in some way: more than half the days Total score: 25 Depression Screening Interpretation: Positive (denies any si or hi, Melia () to speak with pt) Depression Screening Follow-up: Existing condition Depression Screening Done: Yes 92881 - PHQ-9 Billing: Yes Source: Developed by Drs. Kingston Chamberlain, Aspen Fowler, José Miguel Holland and colleagues, with an educational kathleen from [employer]. Thrive Questionnaire Date Thrive assessed: 05/03/24 I am a: Patient What is your living situation today?: I have a steady place to live Within the past 12 months, did the food you bought not last and you didn't have the money to get more?: Never true Within the past 12 months, did you worry whether your food would run out before you got money to buy more?: Never true Do you have trouble paying for medicines?: No Do you have trouble getting transportation to medical appointments?: Yes Do you have trouble paying your heating and electricity bill?: Yes Do you have trouble taking care of your child, family member or friend?: No Do you have trouble with day-to-day activities such as bathing, preparing meals, shopping, managing finances, etc.?: No Are you currently unemployed and looking for a job?: No Are you interested in more education?: Yes Currently or been in a relationship where the following occur: I choose not to answer this question THRIVE Score: 2 AUDIT C Alcohol Use Questionnaire (AUDIT-C) 1. How often do you have a drink containing alcohol?: Monthly or less 2. How many drinks containing alcohol do you have on a typical day when you are drinking?: 1 or 2 3. How often do you have six or more drinks on one occasion?: Never Total Score: 1 Score Reviewed/Action Taken: No JOSE ELIAS-7 AMB Questionnaire JOSE ELIAS-7 Date JOSE ELIAS - 7 assessed: 05/03/24 Feeling nervous, anxious, or on edge: 2 = More than half the days Not being able to stop or control worryin = Nearly every day Worrying too much about different things: 3 = Nearly every day Trouble relaxin = Nearly every day Being so restless that it is hard to sit still: 3 = Nearly every day Becoming easily annoyed or irritable: 3 = Nearly every day Feeling afraid as if something awful might happen: 0 = Not at all Total JOSE ELIAS-7 score (0-4 normal; 5-9 mild; 10-14 moderate; 15-21 severe): 17 Source: Developed by Drs. Kingston Chamberlain, Aspen Fowler, José Miguel Holland and colleagues, with an educational kathleen from [employer]. JOSE ELIAS-7 Assessment Billing JOSE ELIAS-7 Assessment Tool: JOSE ELIAS-7 Assessment 64387 (melia (BH) to speak with pt, denies any si or hi) Review of Systems Const Reports as per HPI Physical exam (Primary Care) Vital Signs: Last Vital Signs Pulse 76 05/03/24 12:32 BP 120/76 05/03/24 12:32 Pulse Ox 98 05/03/24 12:32 Oxygen Delivery Method Room Air 05/03/24 12:32 BMI result Body Mass Index 49.4 Tobacco/Smoking Status: Tobacco use Status Tobacco use date assessed 05/03/24 05/03/24 12:36 Patient Tobacco Use Status Never used Tobacco 05/03/24 12:36 e-Cigarette/Vaping Use Never Used 05/03/24 12:30 PHQ-9: PHQ-9 Score PHQ-9: Total score 25 05/03/24 12:47 Depression Screening Interpretation: Positive (denies any si or hi, Melia () to speak with pt) Depression Screening Follow-up: Existing condition Thrive Assessment: Date of Thrive Assessment Date Thrive assessed 05/03/24 05/03/24 12:47 Currently or been in a relationship where the following occur: I choose not to answer this question Const General: cooperative Nutritional Appearance: obese morbidly obese Orientation/consciousness: patient oriented x3 Resp Effort & Inspection: normal respiratory effort Auscultation: clear to auscultation bilaterally Cardio Rate: regular rate Rhythm: regular rhythm Heart sounds: S1 normal heart sound present and S2 normal heart sound present Neuro General: patient oriented x3 Psych Appearance: grossly normal Mental Status: mental status grossly normal Speech and movement: Normal speech and movement present Affect: normal affect Attitude: cooperative Thought process: Normal thought process present Thought content: Normal thought content present Insight: Good insight present (Psych) Judgement: Good judgement present (Psych) Assessment and Plan Assessment & Plan (1) Insomnia: Code(s): G47.00 - Insomnia, unspecified Plan: Trazodone sent (2) Meralgia paresthetica of left side: Code(s): G57.12 - Meralgia paresthetica, left lower limb Plan: Recommended stretching routine at home (3) Extreme obesity: Code(s): E66.8 - Other obesity Plan: Referred to bariatrics (4) Obesity: Code(s): E66.9 - Obesity, unspecified Plan: Referred to bariatrics (5) Vitamin D deficiency: Code(s): E55.9 - Vitamin D deficiency, unspecified Plan: labs ordered (6) Depression with anxiety: Code(s): F41.8 - Other specified anxiety disorders Plan: melia spoke with pt, referring to therapist Plan The patient agreed to the use of a medical laboratory manager for this encounter. Scribed for NIRAV Reyna- by Jaquelin Roque, medical laboratory manager, on 05/03/2024 at 12:40 EST. Orders: Orders Complete Blood Count Auto Diff Today E66.9 - Obesity, unspecified Comprehensive [place]. Panel Fast Today E66.9 - Obesity, unspecified UA CC w/rflx Micro + Cult Today E66.9 - Obesity, unspecified Lipid Panel Today E66.9 - Obesity, unspecified TSH reflex Free T4 Today E66.9 - Obesity, unspecified Vitamin D 25-OH Total Today E55.9 - Vitamin D deficiency, unspecified Referrals Bariatric Surgery Referral E66.8 - Other obesity Medications: New trazodone 50 mg PO BEDTIME PRN 30 tabs 2RF sleep Refilled cholecalciferol (vitamin D3) 90-day supply 125 mcg PO DAILY 90 caps 0RF E55.9 - Vitamin D deficiency, unspecified Coding Level of Care Code Est Pt Level 3 (04617) Diagnoses Insomnia G47.00 Meralgia paresthetica of left side G57.12 Extreme obesity E66.8 Obesity E66.9 Vitamin D deficiency E55.9 Depression with anxiety F41.8 Additional Codes JOSE ELIAS-7 Assessment Billing - JOSE ELIAS-7 Assessment Tool: JOSE ELIAS-7 Assessment [id number] ([id number])
[2024-05-03 12:32] VITALS: BP 120/76; PULSE 76; O2SAT 98; BMI 49.4
== END 2024-05-03 13:38 | disposition home or self-care (01) ==
PROVIDERS: PCP Nurse Practitioner Family; Visit Provider Nurse Practitioner Family
DX: G47.00 Insomnia, unspecified (principal); G57.12 Meralgia paresthetica, left lower limb; Z68.42 Body mass index [BMI] 45.0-49.9, adult; E66.9 Obesity, unspecified; E66.8 Other obesity; E55.9 Vitamin D deficiency, unspecified; F41.8 Other specified anxiety disorders
CPT/HCPCS: 99213

== ENCOUNTER 2024-10-26 10:00 | Outpatient (AMB) | payer OTHER, SELFPAY ==
[2024-10-26 10:03] VITALS: BP 114/84; PULSE 85; O2SAT 98; BMI 44.0
--- NOTE | 2024-10-26 10:03 | A.OFFPC_ITS ---
Vital Signs 10/26/24 10:03 Height 5 ft 5 in Weight 264 lb 4 oz BMI 44.0 BP 114/84 Blood Pressure Location Rt brachial Position Sitting Pulse 85 Pulse Source Pulse Oximeter Pulse Oximetry (%) 98 Oxygen Delivery Method Room Air Intake Visit Reasons: Med follow up/ Pain down Leg Allergies No Known Allergies Allergy (Verified 10/26/24 10:03) Medication List - Last Reconciled 10/26/24 [facility] albuterol 90 mcg/actuation mcg inhalation amitriptyline 10 mg PO BEDTIME cholecalciferol (vitamin D3) 125 mcg PO DAILY omeprazole 20 mg PO DAILY trazodone 50 mg PO BEDTIME PRN vitamin A palmitate 10,000 units PO DAILY Tobacco use date assessed: 10/26/24 Dental Screening Dental Screen Date: 10/26/24 Did you have a dental visit in the last 12 months?: No Did you have a dental problem in the last 6 months where you did not have access to dental care?: No Was dental information given to patient?: Patient has dentist HPI Med follow up/ Pain down Leg HPI Details History of Present Illness The patient is a 39-year-old female presenting with a concern of a palpable bump and associated pain located on the left lower extremity. The patient described this as a bump below the left calf, sometimes presenting as hard and causing pain, but without tenderness upon touch. This has been ongoing, with the patient noting increased frequency and intensity after recent weight loss surgery. The patient also reports a sensation of a light palpation under the skin at times, correlating with pain that she describes as weird , and wonders if the bump is linked to the distal draper pain. There is no history of trauma to the area, but concern arises due to her family history of osteoporosis and fibromyalgia. She has lost 39 pounds since her weight loss surgery two months ago. Additionally, the patient mentions a previous prescription for omeprazole to manage acid reflux and states a need for a refill. Social History - Employment: Continues to work the same jobs as before. - Weight Loss: Recently lost 39 pounds f ollowing weight loss surgery two months prior. - Family History: Noteworthy for osteopo rosis and fibromyalgia. Review of Systems - Musculoskeletal: Reports a palpable bu mp and pain in the left leg. - Gastrointestinal: Request for omeprazo le regarding previously diagnosed acid reflux. Physical Exam - Cardiovascular- Dorsalis pedis pulse p resent and strong in the left foot. - Respiratory- Lungs were clear to auscu ltation. - Musculoskeletal- No pain noted with pa lpation of the left draper. just inferior to left calf with large palpable fluctuant/semi moveable tissue/ ? lipoma Results Plan referring to for look at ? lipoma. XR of tib fib ordered Patient was informed and verbally consented to the use of an ambient scribe for clinic note documentation during this visit. Discussion Notes Patient Instructions [facility], [facility] Medical History Meralgia paresthetica of left side Spasm of left piriformis muscle Migraines GERD (gastroesophageal reflux disease) Grief reaction Extreme obesity Seasonal allergies Surgical History Hx of breast reduction, elective Hx of tonsillectomy Family History Paternal Uncle No problems noted. 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 1. Little interest or pleasure in doing things: not at all 2. Feeling down, depressed, or hopeless: more than half the days 3. Trouble falling or staying asleep, or sleeping too much: nearly every day 4. Feeling tired or having little energy: more than half the days 5. Poor appetite or overeating: several days 6. Feeling bad about yourself - or that you are a failure or have let yourself or your family down: several days 7. Trouble concentrating on things, such as reading the newspaper or watching television: more than half the days 8. Moving or speaking so slowly that other people could have noticed. Or the opposite - being so fidgety or restless that you have been moving around a lot more than usual: several days 9. Thoughts that you would be better off or of hurting yourself in some way: several days Total score: 13 Depression Screening Interpretation: Positive Depression Screening Done: Yes 89670 - PHQ-9 Billing: Yes Source: Developed by Drs. Kingston Chamberlain, Aspen Fowler, José Miguel Holland and colleagues, with an educational kathleen from [employer]. Thrive Questionnaire Date Thrive assessed: 10/26/24 I am a: Patient What is your living situation today?: I have a steady place to live Within the past 12 months, did the food you bought not last and you didn't have the money to get more?: I choose not to answer this question Within the past 12 months, did you worry whether your food would run out before you got money to buy more?: I choose not to answer this question Do you have trouble paying for medicines?: No Do you have trouble getting transportation to medical appointments?: No Do you have trouble paying your heating and electricity bill?: No Do you have trouble taking care of your child, family member or friend?: No Do you have trouble with day-to-day activities such as bathing, preparing meals, shopping, managing finances, etc.?: No Are you currently unemployed and looking for a job?: No Are you interested in more education?: Yes Please select the resources that you would like help with: Housing/Care Home, Job search/training and Education Currently or been in a relationship where the following occur: No concerns reported THRIVE Score: 0 AUDIT C Alcohol Use Questionnaire (AUDIT-C) 1. How often do you have a drink containing alcohol?: Monthly or less 2. How many drinks containing alcohol do you have on a typical day when you are drinking?: 1 or 2 3. How often do you have six or more drinks on one occasion?: Never Total Score: 1 JOSE ELIAS-7 AMB Questionnaire JOSE ELIAS-7 Date JOSE ELIAS - 7 assessed: 05/03/24 Feeling nervous, anxious, or on edge: 3 = Nearly every day Not being able to stop or control worryin = Nearly every day Worrying too much about different things: 3 = Nearly every day Trouble relaxin = Nearly every day Being so restless that it is hard to sit still: 3 = Nearly every day Becoming easily annoyed or irritable: 3 = Nearly every day Feeling afraid as if something awful might happen: 2 = More than half the days Total JOSE ELIAS-7 score (0-4 normal; 5-9 mild; 10-14 moderate; 15-21 severe): 20 Source: Developed by Drs. Kingston Chamberlain, Aspen Fowler, José Miguel Holland and colleagues, with an educational kathleen from [employer]. JOSE ELIAS-7 Assessment Billing JOSE ELIAS-7 Assessment Tool: JOSE ELIAS-7 Assessment 46144 Physical exam (Primary Care) Vital Signs: Last Vital Signs Pulse 85 10/26/24 10:03 BP 114/84 10/26/24 10:03 Pulse Ox 98 10/26/24 10:03 Oxygen Delivery Method Room Air 10/26/24 10:03 BMI result Body Mass Index 44.0 Tobacco/Smoking Status: Tobacco use Status Tobacco use date assessed 10/26/24 10/26/24 10:04 Patient Tobacco Use Status Never used Tobacco 10/26/24 10:04 e-Cigarette/Vaping Use Never Used 10/26/24 10:04 PHQ-9: PHQ-9 Score PHQ-9: Total score 13 10/26/24 10:11 Depression Screening Interpretation: Positive Thrive Assessment: Date of Thrive Assessment Date Thrive assessed 10/26/24 10/26/24 10:11 Currently or been in a relationship where the following occur: No concerns reported Coding Level of Care Code Est Pt Level 3 (49557) Diagnoses Lipoma D17.9 Pain in left draper M79.662 Additional Codes JOSE ELIAS-7 Assessment Billing - JOSE ELIAS-7 Assessment Tool: JOSE ELIAS-7 Assessment 05275 ([id number]) PHQ-9 - 36516 - PHQ-9 Billing: Yes ([id number]) Assessment & Plan Assessment & Plan (1) Lipoma: Code(s): D17.9 - Benign lipomatous neoplasm, unspecified Category: Medical (2) Pain in left draper: Code(s): M79.662 - Pain in left lower leg Category: Medical Plan . Orders: Orders XR tibia fibula LT 2V Today M79.662 - Pain in left lower leg Referrals General Surgery Referral D17.9 - Benign lipomatous neoplasm, unspecified Medications: New omeprazole 20 mg PO DAILY 90 caps 0RF
== END 2024-10-26 11:19 | disposition home or self-care (01) ==
PROVIDERS: PCP Nurse Practitioner Family; Visit Provider Nurse Practitioner Family
DX: D17.9 Benign lipomatous neoplasm, unspecified (principal); M79.662 Pain in left lower leg

== ENCOUNTER 2024-10-26 10:00 | Outpatient (REF) | payer OTHER, SELFPAY ==
--- NOTE | ~2024-10-26 | XR_ITS ---
EXAMINATION: XR TIBIA FIBULA LEFT CLINICAL INFORMATION: Pain in left lower leg M79.662. COMPARISON: None. TECHNIQUE: 3 views of tibia fibula were obtained. FINDINGS: There is no fracture or dislocation. No focal bony lesions visualized. The soft tissues are unremarkable. The visualized knee and ankle joints appear intact. XR/XR tibia fibula LT 2V IMPRESSION: Unremarkable left tibia and fibula. Electronically signed by: Kingston Weinberg MD 11/22/2024 10:21 AM LDEA DURAN
[2024-10-26 13:20] LABS: MANUAL DIFF FLAG NO
[2024-10-26 13:32] LABS: Basophils Percent Auto 0.7 % (0-2); Eosinophils Absolute Auto 0.2 X10*3/uL (0.0-0.4); Eosinophils Percent Auto 3.3 % (0-4); Hematocrit 38.9 % (37.0-47.0); Hemoglobin 12.3 g/dl (12.0-16.0); Imm Gran Abs Auto 0.01 X10*3/uL (0.00-0.03); Imm Gran Pct Auto 0.2 % (0.0-0.4); Lymphocytes Percent Auto 42.5 % (20-40); Mean Corpuscular HGB Conc 31.6 g/dl (31.0-35.0); Mean Corpuscular Hemoglobin 26.9 pg (27.0-33.0); Mean Corpuscular Volume 84.9 fL (80.0-98.0); Mean Platelet Volume 10.5 fL (9.4-12.3); Monocytes Absolute Auto 0.4 X10*3/uL (0.1-1.2); Monocytes Percent Auto 8.9 % (2-11); Neutrophils Percent Auto 44.4 % (45-73); Platelet Count 386 X10*3/uL (160-400); Red Blood Count 4.58 X10*6/uL (4.20-5.50); Red Cell Distribution Width 14.1 % (11.0-16.0); White Blood Count 4.6 X10*3/uL (4.8-10.8)
[2024-10-26 13:32] LABS: Appearance Urine Cloudy; Color Urine Yellow; Glucose Urine UA Negative (Negative); Leukocyte Esterase Urine Negative (Negative); Nitrite Urine Negative (Negative); Specific Gravity - Urine 1.025 (1.005-1.025); Urine Blood Negative (Negative); Urine Ketones 80 mg/dL (Negative); Urine Protein Negative (Neg-Trace)
[2024-10-26 13:45] LABS: Alanine Aminotransferase 17 U/L (0-31); Albumin Level 4.2 g/dL (3.5-5.0); Alkaline Phosphatase 77 U/L (39-117); Anion Gap 16 (12-20); Aspartate Amino Transferase 22 U/L (5-31); Bilirubin Total 0.6 mg/dL (0.0-1.0); Blood Urea Nitrogen 10 mg/dL (9-16); Calcium 9.5 mg/dL (8.4-10.2); Carbon Dioxide 25 mmol/L (22-29); Chloride 104 mmol/L (96-108); Cholesterol 139 mg/dL (<200); Estimated Glomerular Filt Rate > 60; Glucose Fasting 87 mg/dL (60-99); HDL Cholesterol 40 mg/dL (>40); LDL Cholesterol Calculated 84 mg/dL (<100); Potassium 3.7 mmol/L (3.3-5.1); Sodium 141 mmol/L (135-145); Total Protein 7.5 g/dL (6.5-8.0); Triglycerides 79 mg/dL (<150)
[2024-10-26 14:04] LABS: TSH reflex Free T4 1.03 uIU/mL (0.32-4.0); Vitamin D 25-OH Total 44.4 ng/mL (>30)
== END 2024-10-26 10:01 | disposition home or self-care (01) ==
LOC: HO.HMGCX 10:00
PROVIDERS: PCP Nurse Practitioner Family; Visit Provider Nurse Practitioner Family
DX: M79.662 Pain in left lower leg (principal); E66.9 Obesity, unspecified; E55.9 Vitamin D deficiency, unspecified; D17.9 Benign lipomatous neoplasm, unspecified
CPT/HCPCS: 36415; 73590; 80053; 80061; 81003; 82306; 84443; 85025; 96127; 99212

== ENCOUNTER 2024-11-14 13:21 | Outpatient (AMB) | payer OTHER, SELFPAY ==
--- OUTSIDE RECORDS SUMMARY | 2024-11-14 13:24 | XMS_ITS ---
Author Name [facility] Organization Unknown History of Medication Use Medication Directions Dispensed Refills Start Date End Date [facility] predniSONE (DELTASONE) tablet 20 mg Take 2 tablets (40 mg total) by mouth daily for 5 days. 04/07/2024 active cyclobenzaprine (FLEXERIL) 5 MG tablet Take 2 tablets (10 mg total) by mouth 3 (three) times a day as needed for muscle spasms for up to 15 doses. 04/07/2024 active predniSONE (DELTASONE) tablet 60 mg 60 mg, Oral, Once, On Thu04/05/24 at 1200, For 1 dose 04/07/2024 completed ibuprofen 800 MG tablet Take 1 tablet (800 mg total) by mouth every 8 (eight) hours as needed for pain for up to 15 doses. 04/07/2024 active cyclobenzaprine (FLEXERIL) tablet 10 mg 10 mg, Oral, Once, On Thu04/05/24 at 1200, For 1 dose 04/07/2024 completed ibuprofen tablet 800 mg 800 mg, Oral, Once, On Thu04/05/24 at 1200, For 1 dose 04/07/2024 completed
--- NOTE | 2024-11-14 13:29 | MHC.OFFVIS ---
Vital Signs 11/14/24 13:36 Height 5 ft 5 in Weight 260 lb BMI 43.3 BP 127/72 Blood Pressure Location Rt brachial Position Sitting Pulse 60 Intake Visit Reasons: Lipoma~ Lt calf Intake Note: Patient referred by David GASTELUM for lipoma on Lt calf. Present for 1yr. Patient c/o: painful with touch. 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 He is increasing in size, and she would like to have it excised. She has no such lesions elsewhere. Chart was reviewed and patient evaluated [facility] Medical History Meralgia paresthetica of left side Spasm of left piriformis muscle Migraines GERD (gastroesophageal reflux disease) Grief reaction Extreme obesity Seasonal allergies Surgical History (Updated 11/15/24 @ 09:17 by Bowen Mart MD) Gastric bypass status for obesity Hx of breast reduction, elective Hx of tonsillectomy Family History Paternal Uncle No problems noted. Maternal Uncle Substance use disorder Mother Mental health disorder Maternal Uncle Colon cancer Family/Other Leukemia Maternal Grandfather Skin cancer Social History Household Members Other:: mom Housing: Apartment Alcohol intake: current Alcohol intake frequency: holidays/special occasions only Patient Tobacco Use Status: Never used Tobacco e-Cigarette/Vaping Use: Never Used Second Hand Smoke Exposure: No service: No Current occupational status: employed Current occupation: job [employer] Current occupational exposures/hazards: No Sexual orientation: Straight/Heterosexual Gender identity: Female Cognitive needs: No Hearing needs: No Vision needs: No Female Reproductive History Menstrual Age of Menarche: 13 Physical Exam Vital Signs: Last Vital Signs Pulse 60 11/14/24 13:36 BP 127/72 11/14/24 13:36 BMI result Body Mass Index 43.3 Extrem Other: Patient has a roughly 5 x 3 cm left mid posterior calf mass consistent with a lipoma. Office Procedures Excision Details: Risks, benefits, alternatives of excision left posterior soft tissue mass/lipoma were reviewed with the patient and included but not limited to bleeding, infection, recurrence, numbness, pain, scarring, seroma formation, wound dehiscence with the patient wished to proceed. All questions answered. Consent signed. After appropriate positioning, patient underwent 1% lidocaine and Betadine prepped and a longitudinal incision was made over the mass in question and carried down through skin, subcutaneous tissue, were medial and lateral skin flaps were developed and uneventfully enucleation of the large lipoma was performed. Specimen sent to pathology. Wound was irrigated, secured hemostasis, and closed using running subcuticular 3-0 Vicryl sutures followed by Steri-Strips and sterile dressings. Patient tolerated procedure well. 59407-trvgq/arms/legs >4cm Procedure code (CPT) selection complete Office Meds lidocaine 1 %-epinephrine 1:100,000 injection solution Performing Provider: Bowen Mart MD [place] [facility] [place] [facility] Administered by: Bowen Mart MD on 11/15/24 09:16 Dose Route Admin Location Dispensed Lot Number Expiration Date [facility] Administrative Office Specialist 20 mL Infiltration 20 mL Assessment & Plan Assessment & Plan (1) Lipoma: Code(s): D17.9 - Benign lipomatous neoplasm, unspecified Category: Surgical Plan: Patient was been given local instructions including avoiding strenuous activities, isolated wound, Tylenol and Motrin p.r.n. for pain, may shower in 2 days. All questions answered. Patient will see me as directed or p.r.n.. Orders: Orders Surgical 11/14/24 D1.9 - Benign lipomatous neoplasm, unspecified AMB Excision 11/14/24. - Benign lipomatous neoplasm, unspecified Medications: New lidocaine-epinephrine 1 %-1:100,000 20 mL Infiltration ONCE 30 mL 0RF - Benign lipomatous neoplasm, unspecified Coding Level of Care Code New Pt Level 5 (17590) Diagnoses Lipoma . CPT Codes Trunk/Arms/Legs - CPT: 07484-ocnqd/arms/legs >4cm ([id number])
[2024-11-14 13:36] VITALS: BP 127/72; PULSE 60; BMI 43.3
== END 2024-11-14 14:11 | disposition home or self-care (01) ==
PROVIDERS: PCP Nurse Practitioner Family; Referring Provider Nurse Practitioner Family; Visit Provider Surgery
DX: D17.24 Benign lipomatous neoplasm of skin and subcutaneous tissue of left leg (principal)
CPT/HCPCS: 11403; 99204

== ENCOUNTER 2024-11-14 13:21 | Outpatient (REF) | payer OTHER, SELFPAY | END 2024-11-14 13:22 | disposition home or self-care (01) | LOC: HO.LNP 13:21 | PROVIDERS: PCP Nurse Practitioner Family; Referring Provider Nurse Practitioner Family; Visit Provider Surgery | DX: D17.9 Benign lipomatous neoplasm, unspecified (principal) | CPT/HCPCS: 11403; 88304; 99202 ==

== ENCOUNTER 2024-11-21 13:11 | Outpatient (AMB) | payer OTHER, SELFPAY ==
--- NOTE | 2024-11-21 13:15 | A.OFFVIS_ITS ---
Intake Visit Reasons: s/p excision Lipoma~ Lt calf Intake Note: Patient post op for s/p excision Lipoma~ Lt calf Patient cc: Redness and her excision Racing Board Marker Required: No Accompanied by: Self / Same As Patient Allergies No Known Allergies Allergy (Verified 11/21/24 13:15) HPI Comments Details: Patient presents for follow-up status post calf lipoma excision. Side from mild incisional discomfort she is doing well. Pathology is benign [facility] Medical History (Updated 11/21/24 @ 13:23 by Bowen Mart MD) Meralgia paresthetica of left side Spasm of left piriformis muscle Migraines GERD (gastroesophageal reflux disease) Grief reaction Extreme obesity Seasonal allergies Surgical History (Updated 11/21/24 @ 13:23 by Bowen Mart MD) Lipoma Hx of surgical procedure (11/14/24) Gastric bypass status for obesity Hx of breast reduction, elective Hx of tonsillectomy Family History Paternal Uncle No problems noted. Maternal Uncle Substance use disorder Mother Mental health disorder Maternal Uncle Colon cancer Family/Other Leukemia Maternal Grandfather Skin cancer Social History Household Members Other:: mom Housing: Apartment Alcohol intake: current Alcohol intake frequency: holidays/special occasions only Patient Tobacco Use Status: Never used Tobacco e-Cigarette/Vaping Use: Never Used Second Hand Smoke Exposure: No service: No Current occupational status: employed Current occupation: job [employer] Current occupational exposures/hazards: No Sexual orientation: Straight/Heterosexual Gender identity: Female Cognitive needs: No Hearing needs: No Vision needs: No Female Reproductive History Menstrual Age of Menarche: 13 Physical Exam Extrem Other: Wound is clean dry and intact healing uneventfully Patient has a right anterior distal thigh lipoma measuring 4 x 3 cm Assessment & Plan Assessment & Plan (1) Postop check: Code(s): Z09 - Encounter for follow-up examination after completed treatment for conditions other than malignant neoplasm Category: Surgical (2) Lipoma: Code(s): D17.9 - Benign lipomatous neoplasm, unspecified Category: Medical Plan Patient was been given local wound instructions and will otherwise follow-up p.r.n.. She has a lipoma involving her right anterior thigh wishes would like to have excised but will do so after the holidays. She will contact us for sylvain sheridan. All questions answered. Coding Level of Care Code Est Pt Level 4 (98412) Global (73681) Diagnoses Postop check Z09 Lipoma D17.9
== END 2024-11-21 13:37 | disposition home or self-care (01) ==
PROVIDERS: PCP Nurse Practitioner Family; Visit Provider Surgery
DX: Z09 Encounter for follow-up examination after completed treatment for conditions other than malignant neoplasm (principal); D17.9 Benign lipomatous neoplasm, unspecified
CPT/HCPCS: 99024

== ENCOUNTER → 2024-11-21 13:11 | Outpatient (BNVA) | payer OTHER, SELFPAY | PROVIDERS: PCP Nurse Practitioner Family; Visit Provider Surgery | DX: Z09 Encounter for follow-up examination after completed treatment for conditions other than malignant neoplasm (principal); D17.9 Benign lipomatous neoplasm, unspecified | CPT/HCPCS: 99212 ==

== ENCOUNTER → 2025-01-05 08:06 | Outpatient (BNV) | payer OTHER, SELFPAY | PROVIDERS: PCP Nurse Practitioner Family; Referring Provider Nurse Practitioner Family; Visit Provider Internal Medicine Medical Oncology | DX: D50.9 Iron deficiency anemia, unspecified (principal) | CPT/HCPCS: 99204 ==

== ENCOUNTER 2025-05-03 13:47 | Outpatient (REF) | payer OTHER, SELFPAY ==
[2025-05-03 16:06] LABS: MANUAL DIFF FLAG NO
[2025-05-03 16:09] LABS: Appearance Urine Cloudy; Color Urine Dark Yellow; Glucose Urine UA Negative (Negative); Leukocyte Esterase Urine Negative (Negative); Nitrite Urine Negative (Negative); Specific Gravity - Urine 1.025 (1.005-1.025); Urine Blood Negative (Negative); Urine Ketones Trace mg/dL (Negative); Urine Protein Negative (Neg-Trace)
[2025-05-03 16:16] LABS: Basophils Percent Auto 0.7 % (0-2); Eosinophils Absolute Auto 0.1 X10*3/uL (0.0-0.4); Eosinophils Percent Auto 3.1 % (0-4); Hematocrit 31.2 % (37.0-47.0); Imm Gran Abs Auto 0.01 X10*3/uL (0.00-0.03); Imm Gran Pct Auto 0.2 % (0.0-0.4); Lymphocytes Percent Auto 44.9 % (20-40); Mean Corpuscular HGB Conc 32.1 g/dl (31.0-35.0); Mean Corpuscular Hemoglobin 25.8 pg (27.0-33.0); Mean Corpuscular Volume 80.6 fL (80.0-98.0); Mean Platelet Volume 9.8 fL (9.4-12.3); Monocytes Absolute Auto 0.4 X10*3/uL (0.1-1.2); Monocytes Percent Auto 8.7 % (2-11); Neutrophils Absolute Auto 1.9 x10*3/uL (2.0-8.3); Neutrophils Percent Auto 42.4 % (45-73); Platelet Count 396 X10*3/uL (160-400); Red Blood Count 3.87 X10*6/uL (4.20-5.50); White Blood Count 4.5 X10*3/uL (4.8-10.8)
[2025-05-03 16:45] LABS: Alanine Aminotransferase 27 U/L (0-31); Albumin Level 4.1 g/dL (3.5-5.0); Alkaline Phosphatase 80 U/L (39-117); Anion Gap 10 (12-20); Aspartate Amino Transferase 32 U/L (5-31); Bilirubin Total 0.4 mg/dL (0.0-1.0); Blood Urea Nitrogen 9 mg/dL (9-16); Calcium 9.1 mg/dL (8.4-10.2); Carbon Dioxide 28 mmol/L (22-29); Chloride 107 mmol/L (96-108); Estimated Glomerular Filt Rate > 60; Glucose Random 84 mg/dL (60-115); Iron 18 mcg/dL (30-160); Percent Iron Saturation 5 % (15-50); Potassium 3.8 mmol/L (3.3-5.1); Sodium 141 mmol/L (135-145); Total Iron Binding Capacity 368 mcg/dL (228-428); Unsaturated Iron Binding 350 ug/dL
[2025-05-03 17:03] LABS: Folate 18.6 ng/mL (> or = 4.0); Vitamin B12 1134 pg/mL (200-900)
[2025-05-03 17:04] LABS: Ferritin 8 ng/mL (10-122); TSH reflex Free T4 0.93 uIU/mL (0.32-4.0)
== END 2025-05-03 13:48 | disposition home or self-care (01) ==
LOC: HO.HMGCLDS 13:47
PROVIDERS: PCP Nurse Practitioner Family; Visit Provider Nurse Practitioner Family
DX: D64.9 Anemia, unspecified (principal); E61.1 Iron deficiency; S86.892A Other injury of other muscle(s) and tendon(s) at lower leg level, left leg, initial encounter; S86.891A Other injury of other muscle(s) and tendon(s) at lower leg level, right leg, initial encounter; X58.XXXA Exposure to other specified factors, initial encounter; Y93.9 Activity, unspecified; Y92.9 Unspecified place or not applicable; Y99.9 Unspecified external cause status
CPT/HCPCS: 36415; 80053; 81003; 82607; 82728; 82746; 83540; 84443; 85025; 96127

== ENCOUNTER 2025-05-03 13:47 | Outpatient (AMB) | payer OTHER, SELFPAY ==
--- NOTE | 2025-05-03 13:50 | MHC.PC.OV ---
Vital Signs 05/03/25 13:51 Height 5 ft 5 in Weight 220 lb BMI 36.6 BP 120/70 Blood Pressure Location Rt brachial Position Sitting Pulse 73 Pulse Source Pulse Oximeter Pulse Oximetry (%) 97 Oxygen Delivery Method Room Air Intake Visit Reasons: follow up Certified Residential Medication Aide Required: No Allergies No Known Allergies Allergy (Verified 05/03/25 13:52) Tobacco use date assessed: 05/03/25 Dental Screening Dental Screen Date: 10/26/24 HPI follow up HPI Details Chief Complaint The patient presents with bilateral draper discomfort and concerns regarding anemia. History of Present Illness The patient is a 40-year-old female presenting with bilateral draper discomfort and concerns regarding anemia. Her draper discomfort began on the left side and has now become bilateral. Imaging of the left draper in the past was negative, but suspect draper splints are the cause, likely exacerbated by her job, which requires prolonged standing. Recently, she started running as a hobby. Trace edema is noted bilaterally in the lower extremities. She has a notable history of anemia and previously sought iron transfusions, but insurance issues have prevented her from receiving them. She is status post gastric sleeve surgery, after which she has lost 90 pounds. Dietary modifications including sodium reduction were advised. Social History - Occupation involves long periods on feet. - Recently taken up running as a hobby. - Status post weight loss following gastric sleeve surgery. - Advised to reduce dietary sodium, salt, and processed foods. Health Maintenance - Encouragement to follow a low-sodium diet and avoid processed foods. Review of Systems - Musculoskeletal: Reports bilateral draper discomfort, suspected draper splints. - Cardiovascular: Reports trace edema bilateral lower extremities. - Hematologic: Reports a history of anemia, reports fatigue Physical Exam General: Cooperative, healthy appearing, comfortable, no acute distress and well developed Orientation: Patient oriented x3 Limitations: No limitations Head: Normal to inspection Ears: Hearing grossly normal bilaterally Nose: Normal external nose present Face and sinus: Normal facial exam Eyes: Appearance normal, both eyes and all related structures Neck: Normal visual inspection and Yes full ROM Respiratory: Normal respiratory effort and able to speak in complete sentences. Clear to auscultation bilaterally Cardiovascular: Regular rate and rhythm. Normal S1 and S2 GI: Normal to inspection. Soft to palpation and nontender Skin: No rashes or lesions noted Neuro: Patient oriented x3 Extremities: Positive dorsalis pedis bilaterally, very strong, trace edema bilaterally lower extremities Results Plan I recommended minimizing prolonged standing to manage the bilateral draper discomfort and likely draper splints. Beginning a gradual running program was advised to prevent worsening symptoms. For trace edema management, a low-sodium diet is suggested. Given the patient's history of anemia and difficulties with insurance, I will liaise with hematology regarding possible iron transfusions. I will also order labs for ferritin, iron, and CBC levels. Continued acknowledgement of her successful weight loss post-gastric sleeve surgery, with dietary modifications in place. Discussion Notes I discussed the management of her likely draper splints and her current bilateral draper discomfort, focusing on the need to reduce standing during work and beginning a gradual running routine. The potential benefits and dietary modifications to manage trace edema were emphasized, suggesting a low-sodium diet. With the patient's past anemia treatment hindered by insurance, I plan to coordinate with hematology for feasible iron transfusion options and to conduct laboratory investigations into her current hematological status. We reviewed the importance of continued dietary vigilance after her gastric sleeve surgery, celebrating her significant weight loss and encouraging the maintenance of a healthy diet. Further care instructions were given about dietary advice and the need to consult hematology. Patient Instructions - Reduce time spent standing when possible. - Begin running program slowly to avoid worsening draper discomfort. - Follow a low-sodium diet. - Await further instructions regarding potential iron transfusion and lab tests. - Maintain dietary modifications after successful weight loss surgery. [facility] Medical History (Updated 05/03/25 @ 14:21 by David Martinez [facility]) Meralgia paresthetica of left side Spasm of left piriformis muscle Migraines GERD (gastroesophageal reflux disease) Grief reaction Extreme obesity Seasonal allergies Surgical History (Updated 01/05/25 @ 09:00 by Buzz Chapman MD) Lipoma Hx of surgical procedure (11/14/24) Gastric bypass status for obesity Hx of breast reduction, elective Hx of tonsillectomy Family History Paternal Uncle No problems noted. 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 1. Little interest or pleasure in doing things: more than half the days 2. Feeling down, depressed, or hopeless: several days 3. Trouble falling or staying asleep, or sleeping too much: nearly every day 4. Feeling tired or having little energy: nearly every day 5. Poor appetite or overeating: not at all 6. Feeling bad about yourself - or that you are a failure or have let yourself or your family down: not at all 7. Trouble concentrating on things, such as reading the newspaper or watching television: more than half the days 8. Moving or speaking so slowly that other people could have noticed. Or the opposite - being so fidgety or restless that you have been moving around a lot more than usual: not at all 9. Thoughts that you would be better off or of hurting yourself in some way: not at all Total score: 11 Depression Screening Interpretation: Positive Depression Screening Done: Yes 59329 - PHQ-9 Billing: Yes (denies any si or hi, will have [facility] reach out to pt) Source: Developed by Drs. Kingston Chamberlain, Aspen Fowler, José Miguel Holland and colleagues, with an educational kathleen from [employer]. Thrive Questionnaire Date Thrive assessed: 10/26/24 I am a: Patient What is your living situation today?: I have a steady place to live Within the past 12 months, did the food you bought not last and you didn't have the money to get more?: Never true Within the past 12 months, did you worry whether your food would run out before you got money to buy more?: Never true Do you have trouble paying for medicines?: No Do you have trouble getting transportation to medical appointments?: No Do you have trouble paying your heating and electricity bill?: No Do you have trouble taking care of your child, family member or friend?: No Do you have trouble with day-to-day activities such as bathing, preparing meals, shopping, managing finances, etc.?: No Are you currently unemployed and looking for a job?: No Are you interested in more education?: Yes Please select the resources that you would like help with: Education Currently or been in a relationship where the following occur: No concerns reported THRIVE Score: 0 AUDIT C Alcohol Use Questionnaire (AUDIT-C) 1. How often do you have a drink containing alcohol?: Monthly or less 2. How many drinks containing alcohol do you have on a typical day when you are drinking?: 1 or 2 3. How often do you have six or more drinks on one occasion?: Never Total Score: 1 JOSE ELIAS-7 AMB Questionnaire JOSE ELIAS-7 Date JOSE ELIAS - 7 assessed: 05/03/24 Feeling nervous, anxious, or on edge: 1 = Several days Not being able to stop or control worryin = Several days Worrying too much about different things: 1 = Several days Trouble relaxin = More than half the days Being so restless that it is hard to sit still: 2 = More than half the days Becoming easily annoyed or irritable: 2 = More than half the days Feeling afraid as if something awful might happen: 0 = Not at all Total JOSE ELIAS-7 score (0-4 normal; 5-9 mild; 10-14 moderate; 15-21 severe): 9 Source: Developed by Drs. Kingston Chamberlain, Aspen Fowler, José Miguel Holland and colleagues, with an educational kathleen from [employer]. Physical exam (Primary Care) Vital Signs: Last Vital Signs Pulse 73 05/03/25 13:51 BP 120/70 05/03/25 13:51 Pulse Ox 97 05/03/25 13:51 Oxygen Delivery Method Room Air 05/03/25 13:51 BMI result Body Mass Index 36.6 Tobacco/Smoking Status: Tobacco use Status Tobacco use date assessed 05/03/25 05/03/25 13:52 Patient Tobacco Use Status Never used Tobacco 05/03/25 13:50 e-Cigarette/Vaping Use Never Used 05/03/25 13:50 PHQ-9: PHQ-9 Score PHQ-9: Total score 11 05/03/25 13:50 Depression Screening Interpretation: Positive Thrive Assessment: Date of Thrive Assessment Date Thrive assessed 10/26/24 05/03/25 13:50 Currently or been in a relationship where the following occur: No concerns reported Coding Level of Care Code Est Pt Level 3 (47544) Diagnoses Screening for cervical cancer Z12.4 Anemia D64.9 Low iron E61.1 Draper splints S86.899A Additional Codes PHQ-9 - 25207 - PHQ-9 Billing: Yes ([id number]) Assessment & Plan Assessment & Plan (1) Screening for cervical cancer: Code(s): Z12.4 - Encounter for screening for malignant neoplasm of cervix Category: Medical (2) Anemia: Code(s): D64.9 - Anemia, unspecified Category: Medical (3) Low iron: Code(s): E61.1 - Iron deficiency Category: Medical (4) Draper splints: Code(s): S86.899A - Other injury of other muscle(s) and tendon(s) at lower leg level, unspecified leg, initial encounter Category: Medical Plan . Orders: Orders TSH reflex Free T4 Today D64.9 - Anemia, unspecified, E61.1 - Iron deficiency UA CC w/rflx Micro + Cult Today D64.9 - Anemia, unspecified, E61.1 - Iron deficiency IRON PROFILE Today D64.9 - Anemia, unspecified, E61.1 - Iron deficiency Complete Blood Count Auto Diff Today D64.9 - Anemia, unspecified, E61.1 - Iron deficiency Comprehensive Met. Panel Today D64.9 - Anemia, unspecified, E61.1 - Iron deficiency Ferritin Today D64.9 - Anemia, unspecified, E61.1 - Iron deficiency Vitamin B12 and Folate Today D64.9 - Anemia, unspecified, E61.1 - Iron deficiency Referrals ASSISTANT PROFESSOR OF RADIOLOGY Referral Z12.4 - Encounter for screening for malignant neoplasm of cervix Medications: New docusate sodium 100 mg PO BID 60 caps 3RF 30 days Refilled amitriptyline 10 mg PO BEDTIME 30 tabs 2RF omeprazole 20 mg PO DAILY 90 caps 0RF cholecalciferol (vitamin D3) 90-day supply 125 mcg PO DAILY 90 caps 0RF E55.9 - Vitamin D deficiency, unspecified trazodone 50 mg PO BEDTIME PRN 30 tabs 2RF sleep
[2025-05-03 13:51] VITALS: BP 120/70; PULSE 73; O2SAT 97; BMI 36.6
--- OUTSIDE RECORDS SUMMARY | 2025-05-03 13:56 | XMS_ITS | Clinical Summary ---
Author Organization [facility] ity Address [address] [place] [address] Care Team Providers Care Irrigation Flume Layer Name Role Phone David Martinez NP Primary Care Provider [phone] Social History Tobacco Use Types Packs/Day Years Used Date Smoking Tobacco: Never Assessed Comments Unknown Sex and Gender Information Value Date Recorded Sex Assigned at Not on file Legal Sex Female 9:25 AM EST Gender Identity Not on file Sexual Orientation Not on file Obstetrics History Plan of Treatment Health Maintenance Due Date Last Done Comments Hepatitis B Vaccines (1 of 3 - 19+ 3-dose series) 2005 Cervical Cancer Screening: P ap Smear 2007 Cholesterol Screening (Lipid Panel) 10/27/2022 Depression Screening 10/27/2022 HIV Screening 10/27/2022 Hepatitis C Screening 10/27/2022 Social Influencers of Health Screening 10/27/2022 DTaP,Tdap,and Td Vaccines (2 - Td or Tdap) 03/10/2024 03/10/2014 COVID-19 Vaccine ( - 2023-2 5 season) 2024 Influenza Vaccine (Season Ended) 2025 HIB Vaccines Aged Out No longer eligi ble based on patient's age to complete this topic HPV Vaccines Aged Out No longer eligi ble based on patient's age to complete this topic Hepatitis A Vaccines Aged Out No long er eligible based on patient's age to complete this topic IPV Vaccines Aged Out No longer eligi ble based on patient's age to complete this topic MMR Vaccines Aged Out No longer eligi ble based on patient's age to complete this topic Meningococcal ACWY Vaccine Aged Out N o longer eligible based on patient's age to complete this topic Meningococcal B Vaccine Aged Out No l onger eligible based on patient's age to complete this topic Pneumococcal Vaccine: Pediat rics (0 to 5 Years) and At-Risk Patients (6 to 64 Years) Aged Out No longer eligi ble based on patient's age to complete this topic RSV Immunization Patients Un xuan 20 months Aged Out No longer eligible b ased on patient's age to complete this topic Varicella Vaccines Aged Out No longer eligible based on patient's age to complete this topic Care Teams Irrigation Flume Layer Relationship Specialty Start Date End Date David Martinez NP [address] [place], [place] PCP - General 10/08/23
== END 2025-05-03 14:42 | disposition home or self-care (01) ==
LOC: HO.HMCC 13:48
PROVIDERS: PCP Nurse Practitioner Family; Visit Provider Nurse Practitioner Family
DX: Z12.4 Encounter for screening for malignant neoplasm of cervix (principal); D64.9 Anemia, unspecified; E61.1 Iron deficiency; S86.899A Other injury of other muscle(s) and tendon(s) at lower leg level, unspecified leg, initial encounter

== ENCOUNTER 2025-06-09 07:55 | Outpatient (AMB) | payer OTHER, SELFPAY ==
--- OUTSIDE RECORDS SUMMARY | 2025-06-09 07:57 | XMS_ITS | Clinical Summary ---
Author Organization [facility] ity Address [address] [place] [address] Care Team Providers Care Delimber Operator Name Role Phone David Martinez NP Primary Care Provider Social History Tobacco Use Types Packs/Day Years [...] Td or Tdap) 03/10/2024 03/10/2014 COVID-19 Vaccine (1 - 2023-2 5 season) 2024 Influenza Vaccine (#1) 2025 HIB Vaccines Aged Out No longer [...] 5 Years) and At-Risk Patients (6 to 49 Years) Aged Out No longer eligi ble based on patient's age to complete this topic RSV Immunization Patients Un xuan 20 months Aged Out No longer eligible b ased on patient's age to complete this topic Varicella Vaccines Aged Out No longer eligible based on patient's age to complete this topic Care Teams Delimber Operator Relationship Specialty Start Date End Date David Martinez NP [address] [place], [place] PCP - General 10/08/23
--- OUTSIDE RECORDS SUMMARY | 2025-06-09 07:57 | XMS_ITS | Clinical Summary ---
Author Organization [facility] Address [address] [place] [address] Care Team Providers Care Paperhanger And Painter Name Role Phone David Martinez Primary Care Provider [phone] Medications Medication Sig Dispensed Refills Start Date End Date Status ibuprofen 800 MG tablet Take 1 tablet (800 mg total) by mouth every 8 (eight) hours as needed for pain for up to 15 doses. 15 tablet 0 04/05/2024 Active cyclobenzaprine (FLEXERIL) 5 MG tablet Take 2 tablets (10 mg total) by mouth 3 (three) times a day as needed for muscle spasms for up to 15 doses. 15 tablet 0 04/05/2024 Active Active Problems No known active problems Social History Tobacco Use Types Packs/Day Years Used Date Smoking Tobacco: Never Assessed Sex and Gender Information Value Date Recorded Sex Assigned at Female 04/05/2024 10:06 AM EDT Gender Identity Not on file Sexual Orientation Not on file Job Start Date Occupation Industry Not on file Not on file Not on file Last Filed Vital Signs Vital Sign Reading Time Taken Comments Blood Pressure 126/92 04/05/2024 9:55 AM EDT Pulse 92 04/05/2024 9:55 AM EDT Temperature 36.7 C (98.1 F) 04/05/2024 9:55 AM EDT Respiratory Rate 20 04/05/2024 9:55 AM EDT Oxygen Saturation 95% 04/05/2024 9:55 AM EDT Inhaled Oxygen Concentration - - Weight 127 kg (280 lb) 04/05/2024 9:55 AM EDT Height 167.6 cm (5' 6 ) 04/05/2024 9:55 AM EDT Body Mass Index 45.19 04/05/2024 9:55 AM EDT Plan of Treatment Not on file Care Teams Paperhanger And Painter Relationship Specialty Start Date End Date David Martinez [address] [facility] [place] [address] PCP - General Family Medicine 04/05/24
--- OUTSIDE RECORDS SUMMARY | 2025-06-09 07:58 | XMS_ITS ---
Author Name [facility] Organization Unknown History of Medication Use Medication Directions Dispensed Refills Start Date End Date Stat ibuprofen 800 MG tablet Take 1 tablet (800 mg total) by mouth every 8 (eight) hours as needed for pain for up to 15 doses. 04/05/2024 active Encounters Encounter Type Encounter Reason Primary Diagnosis Location Date Emergency Otalgia Otalgia [facility] 07/03/20 24 Emergency Other muscle spasm Other muscle spasm Bertin chakraborty 04/05/2024 Care Team Organization Name Specialty Phone Email Start Date End Da te [facility] 2023 [facility] MELINDA BRAND Primary Care 05/2024 [facility] 04/05/2024
--- NOTE | 2025-06-09 08:14 | A.OFFVIS_ITS ---
Vital Signs 06/09/25 08:15 Height 5 ft 6 in Weight 213 lb BMI 34.4 BP 106/70 Intake Visit Reasons: Annual visit Intake Note: c/o of pelvic pain x 2 days Exhaust Machine Operator Required: No Information Interpreted: non-clinical & clinical Director Counseling Bureau: Director Counseling Bureau Present (Marily RITCHIE) Accompanied by: Self / Same As Patient Allergies No Known Allergies Allergy (Verified 06/09/25 08:18) HPI Comments Details: Presenting for annual exam. No complaints. Last Pap/HPV was negative in 10/20 [facility] Medical History Meralgia paresthetica of left side Spasm of left piriformis muscle Migraines GERD (gastroesophageal reflux disease) Grief reaction Extreme obesity Seasonal allergies Surgical History Lipoma Hx of surgical procedure (11/14/24) Gastric bypass status for obesity Hx of breast reduction, elective Hx of tonsillectomy Family History (Updated 06/09/25 @ 08:20 by Marily Houston CMA) Paternal Uncle No problems noted. 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 Current occupational exposures/hazards: No Sexual orientation: Straight/Heterosexual Gender identity: Female Cognitive needs: No Hearing needs: No Vision needs: No Female Reproductive History Menstrual Age of Menarche: 13 Duration of menses: 3-5 days Date of last menstrual period: 05/23/25 control method: none Total pregnancies: 2 Number of Living Children: 0 Ab spontaneous: 2 Review of Systems Const All systems reviewed & are unremarkable except as noted in HPI and below Card Reports as per HPI Resp Reports as per HPI GI Reports as per HPI and Reports no additional complaints Reports as per HPI Physical Exam Vital Signs: Last Vital Signs BP 106/70 06/09/25 08:15 BMI result Body Mass Index 34.4 Const General: cooperative, healthy appearing and comfortable Chest Chest palpation & inspection: normal inspection of the chest and normal palpation of entire chest wall Breast/axilla inspection: normal inspection of the breasts and normal inspection of the axillae Breast/axilla palpation: normal palpation of the breasts, normal palpation of the axillae and no axillary lymphadenopathy Resp Effort & Inspection: normal respiratory effort Auscultation: clear to auscultation bilaterally Percussion: percussion normal Cardio Palpation: normal PMI Rate: regular rate Rhythm: regular rhythm Heart sounds: no murmurs and no rubs Peripheral pulses: Peripheral pulses 2+ throughout GI Inspection: Yes normal to inspection Palpation (GI): Soft to palpation, nontender, no guarding, not rigid and No hepatosplenomegaly present Percussion: Yes normal to percussion Auscultation: normal bowel sounds Rectal Exam - Female: deferred General: Yes bladder normal to palpation External Female Exam: No lesion Speculum Exam - Vagina: normal appearance of the vagina, normal palpation, normal vaginal discharge and not erythematous Speculum Exam - Cervix: normal appearance of the cervix and normal palpation Bimanual exam- vagina & uterus: normal bimanual exam, normal palpation, uterine size normal, bladder normal to palpation, consistency normal and normal palpation Bimanual Exam- Adnexa, other: normal adnexae, no masses and no tenderness Assessment & Plan Assessment & Plan (1) Well woman exam: Code(s): Z01.419 - Encounter for gynecological examination (general) (routine) without abnormal findings Category: Medical Plan: Cotesting not indicated this year. Counseled the patient about the recommended dietary allowance of 1000 mg of Calcium & 600 IU of vitamin D. The patient was instructed to perform monthly self-breast exams and to schedule an annual exam in a year; All questions answered and the patient verbalized understanding. Instructed the patient to schedule annual exam in a year (2) Pelvic pain in female: Code(s): R10.2 - Pelvic and perineal pain Category: Medical Plan: Urine dip and test done in the office were both negative. GC and chlamydia taken and pelvic ultrasound ordered. Discussed with the patient the differential diagnosis of pelvic pain including but not limited to adnexal, uterine masses, pelvic infections (PID), GI the (Irritable bowel syndrome, diverticulitis, others), musculoskeletal, myofascial pain abdominal wall , adhesions, endometriosis, psychological and others causes. Will check results and treat accordingly. All questions answered, the patient verbalized understanding. Instructed the patient to schedule an ultrasound and a follow-up appointment in 2 weeks. All questions answered, the patient verbalized understanding and agreed with the plan. (3) Screen for STD (sexually transmitted disease): Code(s): Z11.3 - Encounter for screening for infections with a predominantly sexual mode of transmission Category: Medical Plan: STD screening tests done includes: BV panel for trichomonas, GC/CT will send patient for serology std screening for HIV, RPR, Hep b s Ag, HepC Ab. Instructions given the patient to schedule a follow-up appointment for repeat serology screen in 6 months for possible false negatives. (4) Family planning: Code(s): Z30.09 - Encounter for other general counseling and advice on contraception Category: Social Hx Plan: Discussed with the patient the different options of control including control pills/Nuvaring, DMPA, different types of IUD ?s ( cu vs progesterone) , sterilization. All the pros, cons, risks and benefits of each were discussed with the patient. The patient decided to go ahead with Mirena IUD, so a more detailed discussion was carried on including mechanism of action, risks (infection, uterine perforation, failure with ectopic , septic AB, ovarian cyst and pelvic pain, increased breast cancer risk and others) benefits (efficient contraceptive method, others), GC/CG were taken and the patient was asked to call day one of next cycle for IUD insertion. Orders: Orders Hepatitis B Surface Antigen Today Z20.2 - Contact with and (suspected) exposure to infections with a predominantly sexual mode of transmission Hepatitis C Antibody Today Z20.2 - Contact with and (suspected) exposure to infections with a predominantly sexual mode of transmission US pelvic and transvaginal Today R10.2 - Pelvic and perineal pain Syphilis Screen Today Z20.2 - Contact with and (suspected) exposure to infections with a predominantly sexual mode of transmission HIV Ab/Ag Today Z20.2 - Contact with and (suspected) exposure to infections with a predominantly sexual mode of transmission Coding Level of Care Code Est Pt Level 3 (00965) Est Pt Prev Care 18-39y(71577) Diagnoses Well woman exam Z01.419 Pelvic pain in female R10.2 Screen for STD (sexually transmitted disease) Z11.3 Family planning Z30.09
[2025-06-09 08:15] VITALS: BP 106/70; BMI 34.4
== END 2025-06-09 08:49 | disposition home or self-care (01) ==
PROVIDERS: PCP Nurse Practitioner Family; Visit Provider Obstetrics & Gynecology
DX: Z01.419 Encounter for gynecological examination (general) (routine) without abnormal findings (principal); R10.2 Pelvic and perineal pain; Z30.09 Encounter for other general counseling and advice on contraception; Z32.02 Encounter for pregnancy test, result negative
CPT/HCPCS: 99213; 99395; 99459

== ENCOUNTER 2025-06-09 07:55 | Outpatient (REF) | payer OTHER, SELFPAY ==
[2025-06-09 14:45] LABS: Bacterial Vaginosis PCR POSITIVE (Negative); Candida Group PCR NOT DETECTED (Not Detect); Candida glab krusei PCR NOT DETECTED (Not Detect); Trichomonas vaginalis PCR NOT DETECTED (Not Detect)
[2025-06-09 15:14] LABS: CT PCR NOT DETECTED (Not Detect.); NG PCR NOT DETECTED (Not Detect.)
== END 2025-06-09 07:56 | disposition home or self-care (01) ==
LOC: HO.LNP 07:55
PROVIDERS: PCP Nurse Practitioner Family; Visit Provider Obstetrics & Gynecology
DX: Z32.02 Encounter for pregnancy test, result negative (principal); Z20.2 Contact with and (suspected) exposure to infections with a predominantly sexual mode of transmission; R10.2 Pelvic and perineal pain; Z30.09 Encounter for other general counseling and advice on contraception
CPT/HCPCS: 81002; 81025; 81515; 87491; 87591

== ENCOUNTER 2025-06-21 11:42 | Outpatient (REF) | payer OTHER, SELFPAY ==
[2025-06-22 08:03] LABS: HBsAGNum1 0.35 S/CO (0.00-0.99); HIV Num 1 0.07 S/CO (0.00-0.99); Hepatitis B Surface Antigen Negative (Negative); ~HepC Num1 0.10 S/CO (0.00-0.79); ~Hepatitis C Antibody Nonreactive (Nonreactive)
[2025-06-22 08:07] LABS: Syphilis Screen Nonreactive (Nonreactive)
== END 2025-06-21 11:43 | disposition home or self-care (01) ==
LOC: HO.LAB 11:42
PROVIDERS: PCP Nurse Practitioner Family; Visit Provider Obstetrics & Gynecology
DX: N76.0 Acute vaginitis (principal); B96.89 Other specified bacterial agents as the cause of diseases classified elsewhere; Z20.2 Contact with and (suspected) exposure to infections with a predominantly sexual mode of transmission; Z11.3 Encounter for screening for infections with a predominantly sexual mode of transmission; Z11.4 Encounter for screening for human immunodeficiency virus [HIV]
CPT/HCPCS: 36415; 86780; 86803; 87340; 87389

== ENCOUNTER 2025-06-21 11:42 | Outpatient (AMB) | payer OTHER, SELFPAY ==
--- NOTE | 2025-06-21 11:46 | MHC.OFFVIS ---
Vital Signs 06/21/25 11:51 Height 5 ft 6 in Weight 213 lb BMI 34.4 Intake Visit Reasons: Mirena insertion Mail Clerks Supervisor Required: No Information Interpreted: non-clinical & clinical Accompanied by: Self / Same As Patient Allergies No Known Allergies Allergy (Verified 06/21/25 11:58) Is last menstrual period known: Yes Last menstrual period: 06/20/25 HPI Comments Details: Presenting for IUD insertion complaining of vaginal discharge are straight with odor BV panel was positive for bacterial vaginosis PFSH Medical History Meralgia paresthetica of left side Spasm of left piriformis muscle Migraines GERD (gastroesophageal reflux disease) Grief reaction Extreme obesity Seasonal allergies Surgical History Lipoma Hx of surgical procedure (11/14/24) Gastric bypass status for obesity Hx of breast reduction, elective Hx of tonsillectomy Family History Paternal Uncle No problems noted. 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 Current occupational exposures/hazards: No Sexual orientation: Straight/Heterosexual Gender identity: Female Cognitive needs: No Hearing needs: No Vision needs: No Female Reproductive History Menstrual Age of Menarche: 13 Date of last menstrual period: 06/20/25 Review of Systems Const All systems reviewed & are unremarkable except as noted in HPI and below Reports as per HPI and Reports no additional complaints GI Reports no additional complaints Reports no additional complaints Physical Exam Vital Signs: BMI result Body Mass Index 34.4 Assessment & Plan Assessment & Plan (1) Bacterial vaginosis: Code(s): N76.0 - Acute vaginitis; B96.89 - Other specified bacterial agents as the cause of diseases classified elsewhere Category: Medical Plan: Per CDC recommendation, will screen for STI, HepBs Ag, HIV, RPR, Hep C Ab ordered. Will treat with Flagyl 500 mg p.o. b.i.d. x 7 days, Instructions given to the patient to refrain from sexual activity or to use condoms consistently and correctly during the BV treatment regimen, not to douch, it might increase the risk for relapse, and to call if symptoms persist or recur and to Call back day 1 of her next cycle for Mirena IUD insertion meanwhile use backup method for control prevent . All questions answered, the patient verbalized understanding Medications: New metronidazole 500 mg PO BID 14 tabs 0RF 7 days Coding Level of Care Code Est Pt Level 3 (09406) Diagnoses Bacterial vaginosis N76.0; B96.89
[2025-06-21 11:51] VITALS: BMI 34.4
--- OUTSIDE RECORDS SUMMARY | 2025-06-21 12:33 | XMS_ITS | Clinical Summary ---
Author Organization [facility] Address [address] [place] [address] Care Team Providers Care Elastic Attacher Coverstitch Name Role Phone David Martinez Primary Care Provider [phone] Medications Medication Sig Dispensed Refills Start Date [...] of Treatment Not on file Care Teams Elastic Attacher Coverstitch Relationship Specialty Start Date End Date David Martinez [address] [facility] [place] [address] PCP - General Family Medicine 04/05/24
--- OUTSIDE RECORDS SUMMARY | 2025-06-21 12:33 | XMS_ITS | Clinical Summary ---
Author Organization [facility] Address [address] [address] Phone Care Team Providers Care Conveyancer Name Role Phone David Martinez NP Primary Care Provider + Kait Kraus MD Unavailable Mark Rocha PA-C Unavailable [phone] Allergies No known active allergies Medications cholecalciferol (VITAMIN D3) 5,000 unit capsule Take 1 capsule by mouth every morning. 05/03/2024 Active traZODone (DESYREL) 50 MG tablet Take 50 mg by mouth nightly at bedtime as needed. 05/03/2024 Active ursodioL (ACTIGALL) 250 mg tablet Take 1 tablet (250 mg total) by mouth 2 (two) times a day. Start at 2 weeks postop 180 tablet 1 08/17/2024 Active polyethylene glycol (MIRALAX) 17 gram packet Take 17 g by mouth daily. 30 packet 1 08/17/2024 Active simethicone (MYLICON) 80 mg chewable tablet Take 1 tablet (80 mg total) by mouth every 6 (six) hours as needed (for gas pain). 28 tablet 1 08/17/2024 Active omeprazole (PRILOSEC) 20 MG capsuleIndicatio ns:Gastroesophag eal reflux disease without esophagitis Take 1 capsule (20 mg total) by mouth 2 (two) times a day. 180 capsule 2 11/25/2024 08/22/20 25 Active Active Problems Problem Noted Date Diagnosed Date Postoperative intestinal malabsorption BMI 40.0-44.9, adult 09/05/2024 S/P gastric bypass 09/05/2024 Gastroesophageal reflux disease 08/16/2024 Morbid obesity 06/14/2024 Resolved Problems Problem Noted Date Diagnosed Date Resolved Date BMI 45.0-49.9, adult 08/16/2024 024 Obesity, Class III, BMI 40-4 9.9 (morbid obesity) 07/06/2024 10/10/2024 Family History Medical History Relation Comments Obesity Mother Diabetes Unspecified High blood pressure Unspecified Stroke Unspecified Relation Status Comments Mother Unspecified Social History Tobacco Use Types Packs/Day Years Used Date Smoking Tobacco: Never Smokeless Tobacco: Never Comments:Currently smokes Ma rijuana intermittently. Alcohol Use Standard Drinks/Week Comments Yes 0 (1 standard drink = 0.6 oz pur e alcohol) socially Education Answer Date Recorded Are you interested in more education? Not on pedro luis e 05/30/2024 Are you concerned about learning? Not on file 05/30/2024 No 05/30/2024 No 05/30/2024 Digital Access Answer Date Recorded No 05/30/2024 No 05/30/2024 Reliable internet access at home? Not on file 05/30/2024 Device with a working camera? Not on file Intimate Partner Violence Answer Date R ecorded Are you denied basic needs s [facility] as food, clothing, or medical care? No 08/19/2024 In the past 12 months have y ou been in a relationship with a person who hurts, threatens, or tries to control you? No 08/19/2024 Are you denied basic needs s [facility] as food, clothing, or medical care? No 08/19/2024 In the past 12 months have y ou been in a relationship with a person who hurts, threatens, or tries to control you? No 08/19/2024 Comments Unknown Sex and Gender Information Value Date Recorded Sex Assigned at Female 05/30/2024 9:40 AM EDT Legal Sex Female 9:33 AM EDT Gender Identity Female 05/30/2024 9:40 AM EDT Sexual Orientation Straight 05/30/2024 9: 40 AM EDT Last Filed Vital Signs Vital Sign Reading Time Taken Comments Blood Pressure 130/84 08/19/2024 2:46 PM EDT Pulse 83 08/19/2024 2:46 PM EDT Temperature - - Respiratory Rate - - Oxygen Saturation 97% 08/19/2024 2:46 PM EDT Inhaled Oxygen Concentration - - Weight 112.9 kg (249 lb) 12/09/2024 10:20 AM EST Height 167.6 cm (5' 6 ) 12/09/2024 10:20 AM EST Body Mass Index 40.19 12/09/2024 10:20 AM EST Plan of Treatment Health Maintenance Due Date Last Done Comments Adult Td,Tdap Booster 1986 DEPRESSION SCREENING 1998 HEPATITIS C SCREENING 2004 HIV ONE-TIME SCREENING (18-6 5 YEARS) 2004 HEPATITIS A VACCINES (1 of 2 - Risk 2-dose series) 2005 PNEUMOCOCCAL VACCINES (0-49 years) (1 of 2 - PCV) 2005 PAP SMEAR 2007 COVID-19 VACCINE ( - 2023-2 5 season) 2024 SCREENING FOR DIABETES 12/09/2027 , 06/14/2024 SMOKING STATUS SCREENING (On ce After 26 Yrs) Completed 06/14/2024 HIB VACCINES Aged Out No longer eligi ble based on patient's age to complete this topic MENINGOCOCCAL VACCINES (ACWY) Aged Out No longer eligible based on patient's age to complete this topic MENINGOCOCCAL VACCINES (B) Aged Out N o longer eligible based on patient's age to complete this topic Medical Devices Not on file Insurance [facility] Care Teams Conveyancer Relationship Specialty Start Date End Date David Martinez NP [address] [facility] [place] [address] [email or web address] PCP - General Nurse Practitioner 05/30/24 Kait Kraus MD [address] [place] [address] Gastroenterology 11/10/24 Mark Rocha PA-C [address] [place] [phone] [email or web address] Physician Litigation Legal Secretary 11/10/24 Additional Source Comments The information contained in this document represents components of the legal health record. It is not the complete legal health record.[facility]
--- OUTSIDE RECORDS SUMMARY | 2025-06-21 12:33 | XMS_ITS | Clinical Summary ---
Author Organization [facility] Address [address] [place] [address] Care Team Providers Care Touch Up Painter Name Role Phone David Martinez NP Primary Care Provider [phone] Social History Tobacco Use Types Packs/Day Years [...] Smear 2007 Cholesterol Screening (Lipid Panel) 10/27/2022 HIV Screening 10/27/2022 Hepatitis C Screening 10/27/2022 Social Influencers of Health Screening 10/27/2022 DTaP,Tdap,and Td Vaccines (2 - Td or Tdap) 03/10/2024 03/10/2014 COVID-19 Vaccine (1 - 2023-2 5 season) 2024 Depression Screening 11/30/2024 Influenza Vaccine (#1) 2025 HIB Vaccines Aged [...] age to complete this topic Care Teams Touch Up Painter Relationship Specialty Start Date End Date David Martinez NP [address] [place], [place] PCP - General 10/08/23
== END 2025-06-21 12:18 | disposition home or self-care (01) ==
LOC: HO.HWS 11:42
PROVIDERS: PCP Nurse Practitioner Family; Visit Provider Obstetrics & Gynecology
DX: N76.0 Acute vaginitis (principal); B96.89 Other specified bacterial agents as the cause of diseases classified elsewhere
CPT/HCPCS: 99213

== ENCOUNTER 2025-06-28 14:00 | Outpatient (RCR) | payer OTHER, SELFPAY ==
[2025-05-22 08:17] VITALS: BP 125/75; PULSE 82; RESP 16; TEMP 37.3; O2SAT 97
[2025-05-31 13:30] VITALS: BP 126/77; PULSE 68; RESP 18; TEMP 36.6
[2025-06-07 13:21] VITALS: BP 117/57; PULSE 66; RESP 16; TEMP 36.8; O2SAT 98
[2025-06-14 13:06] VITALS: BP 120/64; PULSE 85; RESP 16; TEMP 36.6; O2SAT 95
[2025-06-21 12:25] VITALS: BP 108/71; PULSE 56; RESP 16; TEMP 36.6; O2SAT 99
[2025-06-28 13:32] VITALS: BP 115/67; PULSE 72; RESP 16; TEMP 36.9; O2SAT 97
== END 2025-06-28 14:50 | disposition home or self-care (01) ==
LOC: HO.INF 14:00
PROVIDERS: Visit Provider Internal Medicine
DX: D64.9 Anemia, unspecified (principal)
CPT/HCPCS: 96365; 96374; J1756

== ENCOUNTER 2025-06-28 14:02 | Outpatient (REF) | payer OTHER, SELFPAY ==
[2025-06-28 14:14] LABS: MANUAL DIFF FLAG NO
[2025-06-28 14:17] LABS: Hematocrit 36.3 % (37.0-47.0); Hemoglobin 12.1 g/dl (12.0-16.0); Imm Gran Abs Auto 0.01 X10*3/uL (0.00-0.03); Imm Gran Pct Auto 0.2 % (0.0-0.4); Lymphocytes Absolute Auto 2.1 X10*3/uL (1.2-4.9); Mean Corpuscular HGB Conc 33.3 g/dl (31.0-35.0); Mean Corpuscular Hemoglobin 28.3 pg (27.0-33.0); Mean Corpuscular Volume 84.8 fL (80.0-98.0); NRBC Abs Auto 0.000 X10*3/uL (0.0-0.012); NRBC Pct Auto 0.0 /100WBC (0.0-0.2); Platelet Count 294 X10*3/uL (160-400); Red Blood Count 4.28 X10*6/uL (4.20-5.50); White Blood Count 4.9 X10*3/uL (4.8-10.8)
[2025-06-28 14:38] LABS: Alanine Aminotransferase 25 U/L (0-31); Albumin Level 4.1 g/dL (3.5-5.0); Alkaline Phosphatase 80 U/L (39-117); Anion Gap 11 (12-20); Aspartate Amino Transferase 24 U/L (5-31); Blood Urea Nitrogen 14 mg/dL (9-16); Calcium 8.8 mg/dL (8.4-10.2); Carbon Dioxide 26 mmol/L (22-29); Chloride 108 mmol/L (96-108); Estimated Glomerular Filt Rate > 60; Potassium 3.9 mmol/L (3.3-5.1); Sodium 141 mmol/L (135-145); Total Protein 6.9 g/dL (6.5-8.0)
--- OUTSIDE RECORDS SUMMARY | 2025-06-28 14:44 | XMS_ITS | Clinical Summary ---
Author Organization [facility] Address [address] [place] [address] Care Team Providers Care Inspector Canvas Products Name Role Phone David Martinez Primary Care Provider [phone] Medications Medication Sig Dispensed Refills Start Date [...] of Treatment Not on file Care Teams Inspector Canvas Products Relationship Specialty Start Date End Date Davdi Martinez [address] [place] [address] PCP - General Family Medicine 04/05/24
--- OUTSIDE RECORDS SUMMARY | 2025-06-28 14:44 | XMS_ITS | Clinical Summary ---
Author Organization [facility] Address [address] [address] Phone Care Team Providers Care Laundry Press Operator Name Role Phone David Martinez NP Primary Care Provider + Kait Kraus MD Unavailable Mark Rocha PA-C Unavailable [phone] Allergies No known active allergies Medications cholecalciferol [...] ecorded Are you denied basic needs s [facility] as food, clothing, or medical care? No 08/19/2024 In the past 12 months have y ou been in a relationship with a person who hurts, threatens, or tries to control you? No 08/19/2024 Are you denied basic needs s [facility] as food, clothing, or medical care? No [...] topic Medical Devices Not on file Insurance [facility] ACO Care Teams Laundry Press Operator Relationship Specialty Start Date End Date David Martinez NP [address] [facility] [place] [address] [email or web address] PCP - General Nurse Practitioner 05/30/24 Kait Kraus MD [address] [place] [address] Gastroenterology 11/10/24 Mark Rocha PA-C [address] [place] [phone] [email or web address] Physician Dealer Card Room 11/10/24 Additional Source Comments The information contained in this document represents components of the legal health record. It is not the complete legal health record.[facility]
--- OUTSIDE RECORDS SUMMARY | 2025-06-28 14:44 | XMS_ITS | Clinical Summary ---
Author Organization [facility] [facility] it[facility] Address [address] [place] [address] Care Team Providers Care Sales Team Member Name Role Phone David Martinez NP Primary [...] age to complete this topic Care Teams Sales Team Member Relationship Specialty Start Date End Date David Martinez NP [address] [place], [place] PCP - General 10/08/23
[2025-06-28 14:50] LABS: Ferritin 134 ng/mL (10-122)
== END 2025-06-28 14:03 | disposition home or self-care (01) ==
LOC: HO.LAB 14:02
PROVIDERS: PCP Nurse Practitioner Family; Visit Provider Internal Medicine Medical Oncology
DX: D50.9 Iron deficiency anemia, unspecified (principal)
CPT/HCPCS: 36415; 80053; 82728; 85025

== ENCOUNTER 2025-07-12 09:18 | Outpatient (AMB) | payer OTHER, SELFPAY ==
--- OUTSIDE RECORDS SUMMARY | 2025-07-12 09:41 | XMS_ITS | Clinical Summary ---
Author Organization [facility] Address [address] [address] Phone Care Team Providers Care Honing Machine Operator Tool Name Role Phone David Martinez NP Primary Care Provider + Kait Kraus MD Unavailable Mark Rocha PA-C Unavailable [phone] Allergies No known active allergies Medications cholecalciferol [...] ecorded Are you denied basic needs s uch as food, clothing, or medical care? No 08/19/2024 In the past 12 months have y ou been in a relationship with a person who hurts, threatens, or tries to control you? No 08/19/2024 Are you denied basic needs s [facility] as food, clothing, or medical care? No [...] PCV) 2005 PAP SMEAR 2007 COVID-19 VACCINE (2023-2 5 season) 2024 SCREENING FOR DIABETES 12/09/2027 [...] topic Medical Devices Not on file Insurance [facility] ACO Care Teams Honing Machine Operator Tool Relationship Specialty Start Date End Date David Martinez NP [address] [facility] [place] [address] PCP - General Nurse Practitioner 05/30/24 Kait Kraus MD [facility] [address] [place] [address] Gastroenterology 11/10/24 Mark Rocha PA-C [address] [place] [phone] [email or web address] Physician Electric Milkers Installer 11/10/24 Additional Source Comments The information contained in this document represents components of the legal health record. It is not the complete legal health record.[facility]
--- OUTSIDE RECORDS SUMMARY | 2025-07-12 09:41 | XMS_ITS | Clinical Summary ---
Author Organization [facility] it[facility] Address [address] [place] [address] Care Team Providers Care Banquet Houseperson Name Role Phone David Martinez NP Primary [...] age to complete this topic Care Teams Banquet Houseperson Relationship Specialty Start Date End Date David Martinez NP [address] [place], [place] PCP - General 10/08/23
--- OUTSIDE RECORDS SUMMARY | 2025-07-12 09:41 | XMS_ITS | Clinical Summary ---
Author Organization [facility] Address [address] [place] [address] Care Team Providers Care Dance Therapist Name Role Phone David Martinez Primary Care Provider [phone] Medications Medication Sig Dispensed Refills Start Date [...] of Treatment Not on file Care Teams Dance Therapist Relationship Specialty Start Date End Date David Martinez [address] [facility] [place] [address] PCP - General Family Medicine 04/05/24
--- NOTE | 2025-07-12 09:43 | MHC.OFFVIS ---
Intake Visit Reasons: Vaginal discharge Plant And Maintenance Technician Required: No Information Interpreted: non-clinical & clinical Tuckpointer Cleaner Caulker: Tuckpointer Cleaner Caulker Present (Marily RITCHIE) Accompanied by: Self / Same As Patient Allergies No Known Allergies Allergy (Verified 07/12/25 09:48) HPI Comments Details: Presenting complaining of vulvovaginal discharge associated with irritation and itching no foul odor and no other concerns PFSH Medical History Meralgia paresthetica of left side Spasm of left piriformis muscle Migraines GERD (gastroesophageal reflux disease) Grief reaction Extreme obesity Seasonal allergies Surgical History Lipoma Hx of surgical procedure (11/14/24) Gastric bypass status for obesity Hx of breast reduction, elective Hx of tonsillectomy Family History Paternal Uncle No problems noted. 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 Current occupational exposures/hazards: No Sexual orientation: Straight/Heterosexual Gender identity: Female Cognitive needs: No Hearing needs: No Vision needs: No Female Reproductive History Menstrual Age of Menarche: 13 Review of Systems Const All systems reviewed & are unremarkable except as noted in HPI and below Physical Exam General: Yes no CVA tenderness External Female Exam: normal external appearance and normal appearance of the urethra Speculum Exam - Vagina: normal appearance of the vagina, normal palpation, no lesions and no masses Speculum Exam - Cervix: normal appearance of the cervix, normal palpation, no lesions, no masses and nontender Bimanual exam- vagina & uterus: normal bimanual exam, normal palpation, uterine size normal, normal palpation, uterine shape normal, No Cervical tenderness present and non-tender Bimanual Exam- Adnexa, other: normal adnexae Back/Spine/Pelvis Back: no CVA tenderness Assessment & Plan Assessment & Plan (1) Vulvovaginitis: Code(s): N76.0 - Acute vaginitis Category: Medical Plan: GC/CT, Bacterial Vaginosis panel taken, Terazol 0.8% q.h.s. for 3 days was sent to the patient's pharmacy. The patient was instructed to call if symptoms don't improve in 48 hours. Orders: Orders CT NG by PCR Vag/Cerv Today B96.89 - Other specified bacterial agents as the cause of diseases classified elsewhere, N76.0 - Acute vaginitis, N89.8 - Other specified noninflammatory disorders of vagina Bacterial Vaginosis Panel Today B96.89 - Other specified bacterial agents as the cause of diseases classified elsewhere, N76.0 - Acute vaginitis, N89.8 - Other specified noninflammatory disorders of vagina Medications: New terconazole 0.8% 1 appful vaginal BEDTIME 20 grams 0RF 3 days Coding Level of Care Code Est Pt Level 3 (39996) Diagnoses Vulvovaginitis N76.0
== END 2025-07-12 10:01 | disposition home or self-care (01) ==
LOC: HO.HWS 09:18
PROVIDERS: PCP Nurse Practitioner Family; Visit Provider Obstetrics & Gynecology
DX: N76.0 Acute vaginitis (principal)
CPT/HCPCS: 99213

== ENCOUNTER 2025-07-12 09:18 | Outpatient (REF) | payer OTHER, SELFPAY ==
[2025-07-12 13:51] LABS: Bacterial Vaginosis PCR NEGATIVE (Negative); Candida Group PCR DETECTED (Not Detect); Candida glab krusei PCR NOT DETECTED (Not Detect); Trichomonas vaginalis PCR NOT DETECTED (Not Detect)
[2025-07-12 14:21] LABS: CT PCR NOT DETECTED (Not Detect.); NG PCR NOT DETECTED (Not Detect.)
== END 2025-07-12 09:19 | disposition home or self-care (01) ==
LOC: HO.LNP 09:18
PROVIDERS: PCP Nurse Practitioner Family; Visit Provider Obstetrics & Gynecology
DX: N76.0 Acute vaginitis (principal); B96.89 Other specified bacterial agents as the cause of diseases classified elsewhere
CPT/HCPCS: 81515; 87491; 87591

== ENCOUNTER 2025-07-18 16:01 | Outpatient (REF) | payer OTHER, SELFPAY ==
--- NOTE | ~2025-07-18 | US_ITS ---
EXAMINATION: US PELVIS CLINICAL INFORMATION: Pelvic and perineal pain COMPARISON: November 19, 2021 reporting a 3.5 cm left ovarian cyst and possible adenomyosis. TECHNIQUE: Ultrasound of the pelvis is performed using both transabdominal and transvaginal transducers along with Doppler. Transvaginal imaging is performed due to inadequate visualization transabdominally. FINDINGS: Uterus: The uterus is in anteversion flexion and measures 12 x 5 x 6 cm. Heterogeneous echotexture. The double wall endometrial thickness is 4 mm. Heterogeneous echotexture throughout the myometrium. 6 mm hypoechoic abnormality within the myometrium. Adnexa: The ovaries aren't identified.. There is color Doppler flow in both ovaries. No free fluid in the cul-de-sac. Right ovary measures 3 x 2 x 2 cm. Volume: 5 cc. No solid or cystic lesion. Scattered follicles. Left ovary measures 3 x 3 x 2 cm. Volume: 6 cc. There is a 1.4 cm anechoic lesion with internal echoes. US/US pelvic and transvaginal IMPRESSION: 1.4 cm complex cystic lesion, left ovary. Recommend dedicated MRI pelvis with contrast. No ovarian torsion. Heterogeneous myometrium and subcentimeter hypodensity. Uterine fibroids cannot be excluded. Electronically signed by: Osito Olivera MD 07/19/2025 07:46 AM EDT
--- OUTSIDE RECORDS SUMMARY | 2025-07-18 17:32 | XMS_ITS | Clinical Summary ---
Author Organization [facility] Address [address] [place] [address] Care Team Providers Care Companion Name Role Phone David Martinez Primary Care Provider [phone] Medications Medication Sig Dispensed Refills Start Date [...] of Treatment Not on file Care Teams Companion Relationship Specialty Start Date End Date David Martinez [address] [place], [facility] [place] [place] [address] PCP - General Family Medicine 04/05/24
--- OUTSIDE RECORDS SUMMARY | 2025-07-18 17:32 | XMS_ITS | Clinical Summary ---
Author Organization [facility] Address [address] [address] Phone Care Team Providers Care Central Supply Technician Supervisor Name Role Phone David Martinez NP Primary Care Provider + Kait Kraus MD Unavailable Mark Rocha PA-C Unavailable + [phone] Allergies No known active allergies Medications cholecalciferol [...] BMI 40-4 9.9 (morbid obesity) 07/06/2024 10/10/2024 Encounters Date Type Department Care Team Description 07/18/2025 Telephone [facility] [address] [place] [address] George Taveras MD from Last 3 Months Family History Medical History Relation Comments Obesity [...] 08/19/2024 Are you denied basic needs s uch [...] topic Medical Devices Not on file Insurance Care Teams Central Supply Technician Supervisor Relationship Specialty Start Date End Date David Martinez NP [address] [place] [address] PCP - General Nurse Practitioner 05/30/24 Kait Kraus MD [facility] [address] [place] [address] Gastroenterology 11/10/24 Mark Rocha PA-C [address] [place] [id number] [email or web address] Physician Banquet Attendant 11/10/24 Additional Source Comments The information contained in this document represents components of the legal health record. It is not the complete legal health record.[facility]
--- OUTSIDE RECORDS SUMMARY | 2025-07-18 17:32 | XMS_ITS | Clinical Summary ---
Author Organization [employer] [facility] it[facility] Address [address] [place] [address] Care Team Providers Care Precision Aircraft Systems Assembler Name Role Phone David Martinez NP Primary [...] age to complete this topic Care Teams Precision Aircraft Systems Assembler Relationship Specialty Start Date End Date David Martinez NP [address] [place], [place] PCP - General 10/08/23
== END 2025-07-18 16:02 | disposition home or self-care (01) ==
LOC: HO.US 16:01
PROVIDERS: PCP Nurse Practitioner Family; Visit Provider Obstetrics & Gynecology
DX: R10.2 Pelvic and perineal pain (principal)
CPT/HCPCS: 76830; 76856

== ENCOUNTER → 2025-07-18 16:03 | Outpatient (BNV) | payer OTHER, SELFPAY | PROVIDERS: PCP Nurse Practitioner Family; Visit Provider Radiology Diagnostic Radiology | DX: N83.292 Other ovarian cyst, left side (principal) | CPT/HCPCS: 76830; 76856 ==

== ENCOUNTER 2025-08-01 11:28 | Outpatient (AMB) | payer OTHER, SELFPAY ==
--- NOTE | 2025-08-01 11:39 | MHC.OFFVIS ---
Intake Visit Reasons: Ultrasound results Accompanied by: Self / Same As Patient Allergies No Known Allergies Allergy (Verified 07/12/25 09:48) HPI Comments Details: Presenting for ultrasound follow-up which showed the following: Uterus: The uterus is in anteversion flexion and measures 12 x 5 x 6 cm. Heterogeneous echotexture. The double wall endometrial thickness is 4 mm. Heterogeneous echotexture throughout the myometrium. 6 mm hypoechoic abnormality within the myometrium. Adnexa: The ovaries aren't identified.. There is color Doppler flow in both ovaries. No free fluid in the cul-de-sac. Right ovary measures 3 x 2 x 2 cm. Volume: 5 cc. No solid or cystic lesion. Scattered follicles. Left ovary measures 3 x 3 x 2 cm. Volume: 6 cc. There is a 1.4 cm anechoic lesion with internal echoes. US/US pelvic and transvaginal IMPRESSION: 1.4 cm complex cystic lesion, left ovary. Recommend dedicated MRI pelvis with contrast. No ovarian torsion. Heterogeneous myometrium and subcentimeter hypodensity. Uterine fibroids cannot be excluded. [facility] Medical History Meralgia paresthetica of left side Spasm of left piriformis muscle Migraines GERD (gastroesophageal reflux disease) Grief reaction Extreme obesity Seasonal allergies Surgical History Lipoma Hx of surgical procedure (11/14/24) Gastric bypass status for obesity Hx of breast reduction, elective Hx of tonsillectomy Family History Paternal Uncle No problems noted. 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 Current occupational exposures/hazards: No Sexual orientation: Straight/Heterosexual Gender identity: Female Cognitive needs: No Hearing needs: No Vision needs: No Female Reproductive History Menstrual Age of Menarche: 13 Review of Systems Const All systems reviewed & are unremarkable except as noted in HPI and below Reports as per HPI and Reports no additional complaints GI Reports no additional complaints Reports no additional complaints Assessment & Plan Assessment & Plan (1) Complex ovarian cyst: Code(s): N83.299 - Other ovarian cyst, unspecified side Category: Medical Plan: Discussed with the patient the results the ultrasound, differential diagnosis discussed with the patient included but not limited to benign, ovarian precancer or cancer, recommended pelvic MRI, ordered. Instructions given the patient to schedule a follow-up appointment within 2-3 weeks. All questions answered, the patient verbalized understanding Orders: Orders MR pelvis wo/w con Today N83.299 - Other ovarian cyst, unspecified side Coding Level of Care Code Est Pt Level 3 (29096) Diagnoses Complex ovarian cyst N83.299
--- OUTSIDE RECORDS SUMMARY | 2025-08-01 13:09 | XMS_ITS | Encounter Summary ---
Author Organization [facility] Address [address] [facility] [address] [place] [address] Phone Care Team Providers Care Slitter Creaser Slotter Operator Name Role Phone Melinda Martinez NP Primary Care Provider + Kait Kraus MD Unavailable Mark Rocha PA-C Unavailable + [phone] Encounter Details Date Type Department Care Team (Late st Contact Info) Description 08/26/2024 [facility] Generated VIRTUAL DEPARTMENT [address] [place] [id number] Unknown, Unknown, Social History Tobacco Use Types Packs/Day Years [...] Orientation Straight 05/30/2024 9: 40 AM EDT documented as of this encounter Procedure Notes * Rajesh Light PA-C - 08/26/2024 6:32 PM EDT [facility] OP Note, Brief Procedure Procedure Name: Laparoscopic RYGB and liver biopsy Performed by (): Dr. Anabel Taveras Assisted by: Rajesh Light PA-C Preoperative Diagnosis: Morbid obesity Postoperative Diagnosis: same Anesthesia: General anesthesia Fluids: 900IV Procedure Description: see OP note Findings: none Estimated blood loss (ml's): 10 mls. Specimens: liver biopsy Complications: none Plan: stable to PACU activity as tolerated precedex block given. IV toradol/tylenol and PO oxycodone. No gabapentin. NPO except medications IVF/DTV SQH, pboots, ambulation antiemetics prn spirometry admit to [facility] ESigned by: ANABEL TAVERAS MD(Pager:[phone] / [phone])on: 08/26/24@183 Documentation Started: 08/26/24 @ 183 Documentation time: 3.00 sharonda CC OTHER PROVIDER: PRIMARY CARE: DR MELINDA MARTINEZ MTDD * Anabel Taveras MD - 08/26/2024 12:00 AM EDT [facility] DATE OF PROCEDURE: 08/26/2024. PREOPERATIVE DIAGNOSIS: Chronic morbid obesity, (BMI of 48). POSTOPERATIVE DIAGNOSIS: Chronic morbid obesity, (BMI of 48). PROCEDURE: Laparoscopic Lovely-en-Y Gastric Bypass, Wedge Liver Biopsy. SURGEON: Dr. Anabel Taveras. ELECTRICAL CONTRACTOR: LINUS Gonzalez. ANESTHESIA: General Endotracheal. INDICATIONS: This patient has a longstanding history of chronic morbid obesity which has been refractory to non-surgical management. The patient was referred to me for consideration of bariatric surgical options. I evaluated the patient after they had attended a mandatory information session on bariatric surgical procedures and their relative risks and benefits. I reviewed the patient's medical history, including their problems with obesity and previous weight loss attempts. I noted that the patient had a calculated body mass index of 48, which placed them at high risk of serious medical problems secondary to their weight. I judged the patient to be a suitable candidate for a bariatric surgical procedure based on established NIH consensus panel criteria. One of our bariatric dieticians evaluated the patient as to their eating habits, weight loss attempts, and potential postoperative dietary compliance and also judged them to be a good candidate for the procedure. The patient was also evaluated by a record label intern as to their emotional stability, coping mechanisms, ability to understand the changes that this procedure would bring to their life, and support system and was judged to be a suitable bariatric surgical candidate. After reviewing the bariatric surgical options that we offer and discussing their relative risks and benefits, the patient decided to have a laparoscopic Lovely-en-Y gastric bypass. These risks and benefits were reviewed at the information session, at the initial clinic visit, as well as at the preoperative clinic visit when operative consent was obtained. The patient was fully aware of the risks and benefits of the laparoscopic Lovely-en-Y gastric bypass as compared with its alternatives and wanted to proceed. The patient was also informed that we planned to a transversus abdominus plane (TAP) block utilizing Exparel, in an effort to minimize post-operative narcotic usage. This was in conjunction with our other components of the ERAS protocol, and also meant that the patient would be getting oral liquid Tylenol and liquid gabapentin preoperatively. The patient was also informed of the risks and benefits of our using Exparel for a TAP block. This patient also consented to having a wedge liver biopsy during the procedure, to rule out occult steatohepatitis or fatty liver disease. They were also fully aware of the risks and benefits of this portion of the procedure and wanted to proceed. PROCEDURE IN DETAIL: The patient was given subcutaneous heparin in the preoperative holding area and then taken to the operating room and placed in the supine position on the operative table. Intravenous antibiotics were administered and the patient was placed into pneumatic compression sleeves. The patient was then given general endotracheal anesthesia by the anesthesiology team without event. An OG tube was then placed. The abdomen was then prepped and draped in the usual manner. As per our protocol, a standard OR time out was performed with the additional bariatric service specific components. For the TAP block we expanded the Exparel with standard 30 ml of Marcaine and injectable sterile saline. A site in the left upper quadrant was then infused with Exparel solution and at that site a Veress need was used to insufflate the abdomen with reasonable pressures and flows. An optical 5 mm trochar was advanced with laparoscopic guidance into the peritoneal cavity without complication. The remaining trocars were then put into place and the scope was switched to a 5 mm, 45 degree lens. Prior to placing each trochar the site had been infused with the Exparel solution. I then completed the TAP block. The Exparel solution was infused in the plane just anterior to the posterior rectus sheath or the transversus abdominus, with laparoscopic guidance. This was performed along the subcostal margin on both sides of the abdomen to the mid- axillary line, and then inferiorly along the mid-axillary line to the level of the anterior-superior iliac spine. At a spot 100 cm beyond the ligament of Treitz, the jejunum was transected with an Endo-MEG soria load. The mesentery between the two limbs of bowel was taken down with the LigaSure device. I then measured 150 cm onto the Lovely limb, and at that spot tacked the pancreatico-biliary limb to the Lovely limb [id number] with interrupted 2-0 silk sutures. Adjoining enterotomies were then created. An Endo MEG soria load was fired across the adjoining agrawal of the two limbs of bowel. The Lovely limb was placed in an antecolic antegastric approach. The omentum was divided in the midline with the LigaSure device and brought down on either side of the Lovely limb. Next, an area 6 cm distal to the esophagogastric junction along the lesser curve of the stomach was identified. Sparing the vagal trunks, a perigastric window in the mesentery was made with LigaSure dissection to gain access to the lesser sac. A hard stop time out was performed by the circulating nurse and anesthesia staff to confirm that the OG tube had been removed prior to stapling the stomach and that there were no other tubes or probes in the mouth other than the ETT. An Endo-MEG purple load stapler was used to create the inferior edge of the gastric pouch. Additional firings of the Endo-MEG purple-load stapler were used to create a small, rectangular-shaped gastric pouch which was completely from the gastric remnant. The pouch was approximately 20 cc in size, oriented along the lesser curve. Staple lines on the pouch and the remnant were inspected and found to be well-formed and hemostatic. The mesenteric attachments to the inferolateral edge of the gastric pouch were taken down using the LigaSure device. The Lovely limb was brought up for the creation of the gastrojejunostomy. I then constructed the gastrojejunostomy using linear cutter technique and EndoGIA soria load. An NG tube was then placed through the anastomosis, and used as a stent. The gastrojejunostomy was then closed with an EndoGIA purple load without event. A second layer of 2-0 running silk Lembert sutures was placed around the entire anastomosis. A methylene blue leak test was then performed,with good distension of the pouch and the gastrojejunostomy, and was negative. A 2 x 1 cm wedge of the edge of the left lateral segment of the liver was excised sharply and sent to pathology. The base of the biopsy site was cauterized with excellent hemostasis. The mesenteric defect at the jejunojejunostomy was repaired with a running 2-0 silk. The Gracia space defect was repaired with a running 2-0 silk pursestring suture. Meticulous hemostasis was obtained. All trocars were removed under direct vision. The abdomen was then desufflated. All wounds were then closed with interrupted deep dermal 3-0 Monocryl sutures and Steri-Strips. The patient was then awoken from anesthesia and returned to recovery room in stable condition. There were no obvious complications to this procedure. Operative blood loss was minimal. Sponge and needle counts were reviewed at the end of the case. I was present and scrubbed throughout the entire procedure as the attending physician of record. FOCI DT: 1323 TD:08/27/24 TT:1500 ID: [id number] ANABEL TAVERAS MD electronically signed 08/29/24 0630 CC OTHER PROVIDER: PRIMARY CARE: UNLISTED PROVIDER documented in this encounter Plan of Treatment Not on file documented as of this encounter Visit Diagnoses Not on filedocumented in this encounter Care Teams Slitter Creaser Slotter Operator Relationship Specialty Start Date End Date Melinda Martinez NP [address] [facility] [id number] PCP - General Nurse Practitioner 05/30/24 Kait Kraus MD [address] [place] [address] Gastroenterology 11/10/24 Mark Rocha PA-C [address] [place], [place] [id number] [place] [id number] Physician Cafeteria Associate 11/10/24 documented as of this encounter Additional Source Comments The information contained in this document represents components of the legal health record. It is not the complete legal health record.[facility]
--- OUTSIDE RECORDS SUMMARY | 2025-08-01 13:09 | XMS_ITS | Clinical Summary ---
Author Organization [facility] Address [address] [place] [address] Care Team Providers Care Resident Care Manager Name Role Phone David Martinez Primary Care Provider [phone] Medications Medication Sig Dispensed Refills Start Date [...] of Treatment Not on file Care Teams Resident Care Manager Relationship Specialty Start Date End Date David Martinez [address] [facility] [place] [address] PCP - General Family Medicine 04/05/24
--- OUTSIDE RECORDS SUMMARY | 2025-08-01 13:09 | XMS_ITS | Clinical Summary ---
Author Organization [facility] Address [address] [address] Phone Care Team Providers Care Animal Care Assistant Name Role Phone David Martinez NP Primary Care Provider + Kait Kraus MD Unavailable Mark Rocha PA-C Unavailable + [phone] Allergies No known active allergies Medications cholecalciferol [...] Loss [address] [place] [address] George Taveras MD from Last 3 Months [...] Devices Not on file Insurance Care Teams Animal Care Assistant Relationship Specialty Start Date End Date David Martinez NP [address] [facility] [place] [address] PCP - General Nurse Practitioner 05/30/24 Kait Kraus MD [facility] [address] [place] [address] Gastroenterology 11/10/24 Mark Rocha PA-C [address] [place] [id number] Physician Care Team Coordinator Scheduler 11/10/24 Additional Source Comments The information contained in this document represents components of the legal health record. It is not the complete legal health record.[facility]
--- OUTSIDE RECORDS SUMMARY | 2025-08-01 13:09 | XMS_ITS | Encounter Summary ---
Author Organization [facility] Address [address] [facility] [address] [place] [address] Phone Care Team Providers Care Carpenter/Labor Name Role Phone Melinda Martinez NP Primary Care Provider + Kait Kraus MD Unavailable Mark Rocha PA-C Unavailable + [phone] Encounter Details Date Type Department Care Team ([facility] st Contact Info) Description 11/25/2024 [facility] Generated VIRTUAL DEPARTMENT [address] [place] [phone] Unknown, Unknown, Social History Tobacco Use Types [...] as of this encounter Procedure Notes * Kait Kraus MD - 11/25/2024 1:38 PM ESTAssociated Order(s): ENDOSCOPY PROCEDURE [facility] Patient Name: Suzette Carlson Procedure Date: 11/25/2024 1:38 PM Date of : 1985 Age: 39 Procedure: Upper GI endoscopy Indications: Epigastric abdominal pain Providers: Kait Kraus MD, Clementina Easton RN, Brendon Chew RN, Yeimi Garcia MD Medicines: Monitored Anesthesia Care Complications: No immediate complications. Procedure: After obtaining informed consent, the endoscope was passed under direct vision. Throughout the procedure, the patient's blood pressure, pulse, and oxygen saturations were monitored continuously. The Endoscope was introduced through the mouth, and advanced to the jejunum. The upper GI endoscopy was accomplished without difficulty. The patient tolerated the procedure well. Findings: The examined esophagus was normal. The Z-line was regular. Evidence of a gastric bypass was found. A gastric pouch appeared normal with a 6 cm length from the GE junction to the gastrojejunal anastomosis was found. The gastrojejunal anastomosis was characterized by a few small up to 3mm erosions, friable mucosa and an intact staple line. Biopsies were taken with a cold forceps in the gastric pouch for Helicobacter pylori testing. The examined jejunum was normal. Impression: - Normal esophagus. - Z-line regular. - Gastric bypass with a pouch 6 cm in length. Gastrojejunal anastomosis characterized by erosion, friable mucosa and an intact staple line. Biopsied. - Normal examined jejunum. Recommendation: - Patient has a contact number available for emergencies. The signs and symptoms of potential delayed complications were discussed with the patient. Return to normal activities tomorrow. Written discharge instructions were provided to the patient. - Resume previous diet. - Continue present medications. Increase omeprazole to 20mg twice a day and start carafate 4 times per day. - Await pathology results. - Follow up with Bariatric surgery for your ongoing care. MD Kait Gamez MD 11/25/2024 2:12:58 PM This report has been signed electronically. Number of Addenda: 0 Note Initiated On: 11/25/2024 1:38 PM Scope In: 1:49:43 PM Scope Out: 1:53:57 PM CC OTHER PROVIDER: PRIMARY CARE: SUNDAY ELENA,MELINDA ERNST documented in this encounter Plan of Treatment Not on file documented as of this encounter Procedures Procedure Name Priority Date/Time Associated Diagnosis Comments NICOTINE AND METABOLITES, RANDOM URINE Routine 12/09/2024 9:50 AM EST IRON AND IRON BINDING CAPACITY Routine 12/09/2024 9:50 AM EST URINE HCG Routine 12/09/2024 9:50 AM EST TYPE AND SCREEN (ABO,RH,ANTIBODY SCREEN) Routine 12/09/2024 9:50 AM EST ENDOSCOPY PROCEDURE 11/25/2024 1 :38 PM EST documented in this encounter Results * Nicotine and metabolites, random urine (12/09/2024 9:50 AM EST) Nicotine <2 () ng/mL [facility] (CLIA# [id number]) Cotinine <2 () ng/mL [facility] (CLIA# [id number]) 8-WV-Zmusmuey <2 () ng/mL [facility] (CLIA# [id number]) Nornicotine <2 () ng/mL [facility] (CLIA# [id number]) NOR-Cotinine <2 () ng/mL [facility] (CLIA# [id number]) Anabasine <2 () ng/mL [facility] (CLIA# [id number]) Comment: Individuals exposed to second hand or passive tobacco smoke may demonstrate concentrations of nicotine and metabolites greater than those indicated for non- smokers. Reference Ranges: Active Non-Smoker Tobacco User (ng/mL) (ng/mL) Nicotine <17 200-700 Cotinine <20 300-1300 6-SB-Wdglampd <50 3000-86558 Nor-Nicotine <2 30-900 Nor-Cotinine <2 Not Established Anabasine <2 10-500 This test was developed and its analytical performance characteristics have been determined by [facility] [place], [place]. It has not been cleared or approved by the U.S. Food and Drug Administration. This assay has been validated pursuant to the CLIA regulations and is used for clinical purposes. Test performed at [facility] [place] [id number] [place] [address] Director: Bolivar Dickey M.D., Ph.D.,Director of Laboratories 12/09/2024 9:50 AM EST 12/09/2024 12:40 PM EST Ector Light PA-C URINE ORDERABLES Final Resul t [facility] (CLIA# [id number]) [address] [place] [address] * Type and Screen (ABO,Rh,Antibody Screen) (12/09/2024 9:50 AM EST) Patient ABO/Rh O POSITIVE [facility] (CLIA# [id number]) Antibody Screen NEGATIVE [facility] (CLIA# [id number]) 12/09/2024 9:50 AM EST 12/09/2024 12:40 PM EST Ector Light PA-C BLOOD BANK TEST ORDERABLES F inal Result [facility] (CLIA# [id number]) [address] [place] [address] * (ABNORMAL) Iron and iron binding capacity (12/09/2024 9:50 AM EST) Iron 23(L) 50 - 170 ug/dL [facility] (CLIA# [id number]) Total Iron Binding Capacity 404 250 - 425 ug/dL [facility] (CLIA# [id number]) Percent Iron Saturation 6(L) 17 - 50 % [facility] (CLIA# [id number]) 12/09/2024 9:50 AM EST 12/09/2024 12:54 PM EST Ayesha Wooten PA-C LAB BLOOD ORDERABLES Fi nal Result Performing Organization Address [facility]/ZIP Co de Phone Number [facility] (CLIA# [id number]) [address] [place] [address] * HCG, urine (12/09/2024 9:50 AM EST) Test, Urine NEGATIVE NEGATIVE [facility] (CLIA# [id number]) Comment: If a negative result is obtained and expected, recollection after 48-72 hours is suggested. 12/09/2024 9:50 AM EST 12/09/2024 12:40 PM EST Ector Light PA-C URINE ORDERABLES Final Resul t Performing Organization Address City/[facility]/ZIP Co de Phone Number [facility] (CLIA# [id number]) [address] [place] [address] * ENDOSCOPY PROCEDURE (11/25/2024 1:38 PM EST) 11/25/2024 1:38 PM EST Narrative Procedure Note Kait Kraus MD - 11/25/2024 1:[address] [facility] Patient Name: Suzette Carlson Procedure Date: 11/25/2024 1:38 PM Date of : 1985 Age: 39 Procedure: Upper GI endoscopy Indications: Epigastric abdominal pain Providers: Kait Kraus MD, Clementina Eastno RN, Brendon Chew RN, Yeimi Garcia MD Medicines: Monitored Anesthesia Care Complications: No immediate complications. Procedure: After obtaining informed consent, the endoscope was passed under direct vision. Throughout the procedure, the patient's blood pressure, pulse, and oxygen saturations were monitored continuously. The Endoscope was introduced through the mouth, and advanced to the jejunum. The upper GI endoscopy was accomplished without difficulty. The patient tolerated the procedure well. Findings: The examined esophagus was normal. The Z-line was regular. Evidence of a gastric bypass was found. A gastric pouch appeared normal with a 6 cm length from the GE junction to the gastrojejunal anastomosis was found. The gastrojejunal anastomosis was characterized by a few small up to 3mm erosions, friable mucosa and an intact staple line. Biopsies were taken with a cold forceps in the gastric pouch for Helicobacter pylori testing. The examined jejunum was normal. Impression: - Normal esophagus. - Z-line regular. - Gastric bypass with a pouch 6 cm in length. Gastrojejunal anastomosis characterized by erosion, friable mucosa and an intact staple line. Biopsied. - Normal examined jejunum. Recommendation: - Patient has a contact number available for emergencies. The signs and symptoms of potential delayed complications were discussed with the patient. Return to normal activities tomorrow. Written discharge instructions were provided to the patient. - Resume previous diet. - Continue present medications. Increase omeprazole to 20mg twice a day and start carafate 4 times per day. - Await pathology results. - Follow up with Bariatric surgery for your ongoing care. MD Kait Gamez MD 11/25/2024 2:12:58 PM This report has been signed electronically. Number of Addenda: 0 Note Initiated On: 11/25/2024 1:38 PM Scope In: 1:49:43 PM Scope Out: 1:53:57 PM CC OTHER PROVIDER: PRIMARY CARE: SUNDAY ELENA,MELINDA ERNST us Kait Kraus MD GI PROCEDURE ORDERABLES Final Re sult documented in this encounter Visit Diagnoses Not on filedocumented in this encounter Care Teams Carpenter/Labor Relationship Specialty Start Date End Date Melinda Martinez NP [facility] [place] [address] PCP - General Nurse Practitioner 05/30/24 Kait Kraus MD [facility] [address] [place] [address] Gastroenterology 11/10/24 Mark Rocha PA-C [address] [place] [phone] Physician Poultry Farmworker 11/10/24 documented as of this encounter Additional Source Comments The information contained in this document represents components of the legal health record. It is not the complete legal health record.[facility]
--- OUTSIDE RECORDS SUMMARY | 2025-08-01 13:09 | XMS_ITS | Encounter Summary ---
Author Organization [facility] Address [address] [facility] [address] [place] [phone] Phone Care Team Providers Care Laboratory Animal Care Veterinarian Name Role Phone Melinda Martinez NP Primary Care Provider + Kait Kraus MD Unavailable Mark Rocha PA-C Unavailable + [phone] Encounter Details Date Type Department Care Team (Late st Contact Info) Description 08/28/2024 [facility] Generated VIRTUAL DEPARTMENT [address] [place] [phone] Unknown, Unknown, Social History Tobacco Use Types [...] AM EDT documented as of this encounter Discharge Summaries * Jeremias Gomez NP - 08/28/2024 10:17 AM EDT [facility] Patient Discharge (Text) Discharge Summary Admission and Discharge Date: 08/26/24 - 08/28/24 Attending Physician: ANABEL SCHILLING MD Primary Care Physician: UNLISTED PROVIDER Consulting Physicians/Services: None Principle Discharge Diagnosis: s/p laparoscopic Lovely-en-Y gastric bypass and liver biopsy Secondary Diagnosis: morbid obesity, GERD, asthma Major Procedures/Tests Performed: None Reason for Inpatient Admission: Post-operative recovery, including pain control and diet advancement Brief Summary of Hospital Course: The patient was admitted on 08/26/24 after undergoing a laparoscopic Lovely-en-Y gastric bypass and liver biopsy. The patient was placed on the ERAS protocol and administered a TAP block intraoperatively with a combination of precedex, marcaine, and injectable saline. Please see the operative note for details of the procedure. The patient was extubated in the OR and transferred to the PACU in stable condition. Their pain was controlled with IV tylenol and IV toradol around the clock, with oral oxycodone as needed for breakthrough pain. They were given subcutaneous heparin and pneumoboots for DVT prophylaxis, as well as one dose of antibiotics for wound prophylaxis. They were started on a stage 1 clear liquid bariatric diet on POD 1. They were struggling with nausea on POD 1, so diet advancement was deferred and they were kept an additional hospital night. This had improved by POD 2 and they were advanced to stage 2 bariatric diet as tolerated. They were ambulating and voiding independently. By the time of discharge their labs and vitals were stable, they were tolerating the stage 2 bariatric diet, and pain was controlled. Condition at Discharge: Stable Studies Pending at the time of discharge: none Allergies: See below Discharge Medications Instructions: See below Warfarin Instructions: None Follow up Care Plan: Follow up for your two week post operative appointment with a PA/LAY OUT MAKER at the [facility]. Advance Care Plan: Full Code 22/06 Contact Information: For questions during office hours, contact the [facility] at [phone]. For urgent medical questions after hours, have the medical reception specialist surgeon paged at [phone]. DC with Ischemic Stroke or TIA No Medication Reconciliation Continue taking these medications: traZODone* (Desyrel*) 50 MG TAB 50 Milligram by mouth Daily at Bedtime Cholecalciferol (D3 High Potency) 5,000 UNIT CAP 1 Tablet Once Daily (LAYLA) Instructions: HOLD DOS Omeprazole (Omeprazole Dr) [address] 20 Milligram by mouth Once Daily (LAYLA) Ondansetron* (Zofran ODT*) 4 MG TAB.DISINT 4 Milligram by mouth Every six Hours as needed for NV oxyCODONE IR* (Roxicodone IR*) 5 MG TAB 5 Milligram by mouth Every four Hours as needed for Pain Instructions: Partial fill upon patient request. Simethicone (Simethicone) 80 MG CHW 80 Milligram by mouth 4 Times Daily PRN as needed for gas pain Polyethylene Glycol 3350* (Miralax Powder*) 17 GM Packet 17 Gram by mouth Once Daily (LAYLA) [ursodiol] 250 Milligram by mouth 2 Times Daily (9A AND 6P) Instructions: do not start until 2 weeks post op Allergies Coded Allergies: No Known Allergies (08/26/24) Data Vital Signs (Last Documented) Result Date Time Pulse 64 08/28 1033 Pulse Ox 97 08/28 0640 B/P 107/55 08/28 0640 Temp 98.2 08/28 0640 Resp 18 08/28 0640 O2 Flow Rate 2.0 08/27 0320 ESigned by: JEREMIAS GOMEZ LAY OUT MAKER(Pager:)on: 08/28/24@1034 Documentation Started: 08/28/24 @ 1017 Documentation time: 17.40 min CC OTHER PROVIDER: PRIMARY CARE: DR MELINDA MARTINEZ MTDD documented in this encounter Plan of Treatment Not on file documented as of this encounter Visit Diagnoses Not on filedocumented in this encounter Care Teams Laboratory Animal Care Veterinarian Relationship Specialty Start Date End Date Melinda Martinez NP [facility] [place] [address] PCP - General Nurse Practitioner 05/30/24 Kait Kraus MD [facility] [address] [place] [address] Gastroenterology 11/10/24 Mark Rocha PA-C [address] [place] [address] Physician Cob Sawyer 11/10/24 documented as of this encounter Additional Source Comments The information contained in this document represents components of the legal health record. It is not the complete legal health record.[facility]
--- OUTSIDE RECORDS SUMMARY | 2025-08-01 13:09 | XMS_ITS | Clinical Summary ---
Author Organization [facility] ity Address [address] [place] [address] Care Team Providers Care Internal Revenue Service Agent Name Role Phone David Martinez NP Primary [...] age to complete this topic Care Teams Internal Revenue Service Agent Relationship Specialty Start Date End Date David Martinez NP [address] [place], [place] PCP - General 10/08/23
== END 2025-08-01 12:13 | disposition home or self-care (01) ==
LOC: HO.HWS 11:29
PROVIDERS: PCP Nurse Practitioner Family; Visit Provider Obstetrics & Gynecology
DX: N83.299 Other ovarian cyst, unspecified side (principal)
CPT/HCPCS: 99213

== ENCOUNTER 2025-09-06 13:37 | Outpatient (AMB) | payer OTHER, SELFPAY ==
--- NOTE | 2025-09-06 14:00 | MHC.PC.OV ---
Vital Signs 09/06/25 14:02 Height 5 ft 6 in Weight 211 lb BMI 34.1 BP 100/68 Blood Pressure Location Rt brachial Position Sitting Respiration 16 Pulse 64 Pulse Source Pulse Oximeter Pulse Oximetry (%) 98 Oxygen Delivery Method Room Air Intake Visit Reasons: PE w/ labs Harpoon Engagement Planning Operator Required: No Accompanied by: Self / Same As Patient Allergies No Known Allergies Allergy (Verified 09/06/25 14:00) Medication List - Last Reconciled 09/06/25 by ROSE MARY Kramer albuterol 90 mcg/actuation 90 mcg inhalation DAILY amitriptyline 10 mg PO BEDTIME cholecalciferol (vitamin D3) 125 mcg PO DAILY docusate sodium 100 mg PO BID 30 days omeprazole 20 mg PO DAILY terconazole 0.8% 1 appful vaginal BEDTIME 3 days trazodone 50 mg PO BEDTIME PRN Tobacco use date assessed: 09/06/25 Dental Screening Dental Screen Date: 10/26/24 Did you have a dental visit in the last 12 months?: Yes Did you have a dental problem in the last 6 months where you did not have access to dental care?: No Was dental information given to patient?: Patient has dentist HPI PE w/ labs HPI Details History of Present Illness The patient is a 40-year-old female presenting for a physical examination and evaluation of recurrent syncope episodes. The patient reports experiencing episodes of syncope approximately four times since undergoing gastric bypass surgery about a year ago. She describes feeling woozy before passing out and regaining consciousness after soiling herself. During a recent episode, she sought emergency care where a CT scan of her head was performed, yielding negative results. The episodes have been labeled as vasovagal syncope, but there is a concern for possible seizure activity due to her mother's history of seizures and her symptoms. Health Maintenance Social History Review of Systems - Cardiovascular: Denies chest pain, orthopnea, or syncope. - Respiratory: Denies dyspnea, cough, or wheezing. - Gastrointestinal: Denies abdominal pain, constipation, diarrhea, or melena. - Neurological: Reports episodes of syncope; denies headaches or dizziness. - Psychiatric: Denies suicidal or homicidal ideation. Physical Exam General: Cooperative, healthy appearing, comfortable, no acute distress and well developed Orientation: Patient oriented x3 Limitations: No limitations Head: Normal to inspection Ears: Hearing grossly normal bilaterally Nose: Normal external nose present Face and sinus: Normal facial exam Eyes: Appearance normal, both eyes and all related structures Neck: Normal visual inspection and Yes full ROM Respiratory: Normal respiratory effort and able to speak in complete sentences. Clear to auscultation bilaterally Cardiovascular: Regular rate and rhythm. Normal S1 and S2 GI: Normal to inspection. Soft to palpation and nontender Skin: No rashes or lesions noted Neuro: CN2 through 12 intact, finger to thumb intact, heel to draper intact. Negative arm pull test, negative Romberg Extremities: Normal to inspection Results - Imaging: CT scan of the head was negative (according to pt, missing notes). Plan Patient was informed and verbally consented to the use of an ambient scribe for clinic note documentation during this visit. 1. Vasovagal Syncope The patient has experienced recurrent episodes of syncope, which have been labeled as vasovagal in nature. An EEG is planned to rule out any underlying seizure activity, and a referral to neurology has been made for further evaluation. 2. Possible Seizure Disorder Given the patient's family history of seizures and the nature of her syncope episodes, there is a concern for a possible seizure disorder. An EEG will be conducted, and the patient will be referred to neurology for further assessment and management. Discussion Notes I discussed with the patient the possibility of her syncope episodes being related to vasovagal syncope, but also the potential for a seizure disorder given her family history. I recommended an EEG and a referral to neurology for further evaluation. Patient Instructions - Follow up with neurology as scheduled. - Undergo EEG testing as planned. [facility] Medical History Meralgia paresthetica of left side Spasm of left piriformis muscle Migraines GERD (gastroesophageal reflux disease) Grief reaction Extreme obesity Seasonal allergies Surgical History Lipoma Hx of surgical procedure (11/14/24) Gastric bypass status for obesity Hx of breast reduction, elective Hx of tonsillectomy Family History Paternal Uncle No problems noted. 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 1. Little interest or pleasure in doing things: several days 2. Feeling down, depressed, or hopeless: several days 3. Trouble falling or staying asleep, or sleeping too much: more than half the days 4. Feeling tired or having little energy: more than half the days 5. Poor appetite or overeating: not at all 6. Feeling bad about yourself - or that you are a failure or have let yourself or your family down: not at all 7. Trouble concentrating on things, such as reading the newspaper or watching television: several days 8. Moving or speaking so slowly that other people could have noticed. Or the opposite - being so fidgety or restless that you have been moving around a lot more than usual: not at all 9. Thoughts that you would be better off or of hurting yourself in some way: not at all Total score: 7 Depression Screening Interpretation: Positive Depression Screening Done: Yes 88385 - PHQ-9 Billing: Yes (denies any si or hi, will have BH reach out to pt) Source: Developed by Drs. Kingston Chamberlain, Aspen Fowler, José Miguel Holland and colleagues, with an educational kathleen from [employer]. Thrive Questionnaire Date Thrive assessed: 05/03/25 I am a: Patient What is your living situation today?: I have a steady place to live Within the past 12 months, did the food you bought not last and you didn't have the money to get more?: Never true Within the past 12 months, did you worry whether your food would run out before you got money to buy more?: Never true Do you have trouble paying for medicines?: No Do you have trouble getting transportation to medical appointments?: No Do you have trouble paying your heating and electricity bill?: No Do you have trouble taking care of your child, family member or friend?: No Do you have trouble with day-to-day activities such as bathing, preparing meals, shopping, managing finances, etc.?: No Are you currently unemployed and looking for a job?: No Are you interested in more education?: Yes Please select the resources that you would like help with: Education Currently or been in a relationship where the following occur: No concerns reported THRIVE Score: 0 JOSE ELIAS-7 AMB Questionnaire JOSE ELIAS-7 Date JOSE ELIAS - 7 assessed: 09/06/25 Feeling nervous, anxious, or on edge: 1 = Several days Not being able to stop or control worryin = Several days Worrying too much about different things: 1 = Several days Trouble relaxin = Several days Being so restless that it is hard to sit still: 1 = Several days Becoming easily annoyed or irritable: 1 = Several days Feeling afraid as if something awful might happen: 0 = Not at all Total JOSE ELIAS-7 score (0-4 normal; 5-9 mild; 10-14 moderate; 15-21 severe): 6 Source: Developed by Drs. Kingston Chamberlain, Aspen Fowler, José Miguel Holland and colleagues, with an educational kathleen from [employer]. JOSE ELIAS-7 Assessment Billing JOSE ELIAS-7 Assessment Tool: JOSE ELIAS-7 Assessment 42876 Physical exam (Primary Care) Vital Signs: Last Vital Signs Pulse 64 09/06/25 14:02 Resp 16 09/06/25 14:02 BP 100/68 09/06/25 14:02 Pulse Ox 98 09/06/25 14:02 Oxygen Delivery Method Room Air 09/06/25 14:02 BMI result Body Mass Index 34.1 Tobacco/Smoking Status: Tobacco use Status Tobacco use date assessed 09/06/25 09/06/25 14:02 Patient Tobacco Use Status Never used Tobacco 09/06/25 14:02 e-Cigarette/Vaping Use Never Used 09/06/25 14:02 PHQ-9: PHQ-9 Score PHQ-9: Total score 7 09/06/25 14:02 Depression Screening Interpretation: Positive Thrive Assessment: Date of Thrive Assessment Date Thrive assessed 05/03/25 09/06/25 14:02 Currently or been in a relationship where the following occur: No concerns reported Coding Level of Care Code Est Pt Level 3 (94304) Est Pt Prev Care 18-39y(59061) Diagnoses LOC (loss of consciousness) R40.20 Encounter for routine adult physical exam with abnormal findings Z00.01 Seizure-like activity R56.9 Additional Codes JOSE ELIAS-7 Assessment Billing - JOSE ELIAS-7 Assessment Tool: JOSE ELIAS-7 Assessment 71473 ([id number]) PHQ-9 - 90357 - PHQ-9 Billing: Yes ([id number]) Assessment & Plan Assessment & Plan (1) LOC (loss of consciousness): Code(s): R40.20 - Unspecified coma Category: Medical (2) Encounter for routine adult physical exam with abnormal findings: Code(s): Z00.01 - Encounter for general adult medical examination with abnormal findings Category: Medical (3) Seizure-like activity: Code(s): R56.9 - Unspecified convulsions Category: Medical Plan . Orders: Orders EEG Awake and Drowsy Today R40.20 - Unspecified coma Referrals Neurology Referral R56.9 - Unspecified convulsions
[2025-09-06 14:02] VITALS: BP 100/68; PULSE 64; RESP 16; O2SAT 98; BMI 34.1
== END 2025-09-06 15:12 | disposition home or self-care (01) ==
LOC: HO.HMCC 13:38
PROVIDERS: PCP Nurse Practitioner Family; Visit Provider Nurse Practitioner Family
DX: Z00.00 Encounter for general adult medical examination without abnormal findings (principal); R40.20 Unspecified coma; R56.9 Unspecified convulsions

== ENCOUNTER → 2025-09-06 13:37 | Outpatient (BNVA) | payer OTHER, SELFPAY | PROVIDERS: PCP Nurse Practitioner Family; Visit Provider Nurse Practitioner Family | DX: Z00.01 Encounter for general adult medical examination with abnormal findings (principal); R55 Syncope and collapse; R56.9 Unspecified convulsions | CPT/HCPCS: 96127 ==

== ENCOUNTER → 2025-09-09 12:45 | Outpatient (BNV) | payer OTHER, SELFPAY | PROVIDERS: PCP Nurse Practitioner Family; Visit Provider Radiology Diagnostic Radiology | DX: N83.299 Other ovarian cyst, unspecified side (principal) | CPT/HCPCS: 72197 ==

== ENCOUNTER 2025-09-09 12:46 | Outpatient (REF) | payer OTHER, SELFPAY ==
--- NOTE | ~2025-09-09 | MR_ITS ---
EXAMINATION: MR PELVIS WITHOUT THEN WITH IV CONTRAST HISTORY: N83.299 - Other ovarian cyst, unspecified side. TECHNIQUE: Axial T1, fat-suppressed T1, and fat suppressed T2, and sagittal and coronal T2-weighted MR images of the pelvis were obtained. Subsequently, sagittal and axial fat-suppressed T1-weighted images were obtained after the intravenous administration of 10 mL Gadavist. COMPARISON: Correlation is made with a pelvic ultrasound dated 07/18/2025. FINDINGS: The uterus measures approximately 9.6 x 7.5 x 6.8 cm. No fibroids are identified. There is marked thickening of the junctional zone anteriorly measuring up to 3.6 cm. Multiple small cystic spaces are seen within the junctional zone. Findings are compatible with adenomyosis. The endometrium is unremarkable. There are nabothian cysts in the cervix. A tampon is noted in the vagina. The right ovary measures 2.9 x 2.5 x 2.3 cm and demonstrates multiple follicles. The left ovary measures 2.7 x 2.0 x 2.3 cm and demonstrates multiple follicles. Anterior to the left ovary, there is a 2.3 x 1.7 x 1.7 cm simple appearing cyst, which may represent a paraovarian cyst. There is no associated contrast enhancement. There is no ascites or pelvic lymphadenopathy. The visualized bones demonstrate normal marrow signal intensity. MR/MR pelvis wo/w con IMPRESSION: 1. Findings compatible with adenomyosis of the uterus is described. 2. Probable 2.3 x 1.7 x 1.7 cm left paraovarian cyst. Electronically signed by: Kingston Oshea MD 09/12/2025 08:34 AM EDT
--- OUTSIDE RECORDS SUMMARY | 2025-09-09 12:58 | XMS_ITS | Clinical Summary ---
Author Organization [facility] Address [address] [place] [address] Care Team Providers Care Chefs Name Role Phone David Martinez Primary Care Provider [phone] Medications Medication Sig Dispensed Refills Start Date [...] of Treatment Not on file Care Teams Chefs Relationship Specialty Start Date End Date David Martinez [address] [place] [address] PCP - General Family Medicine 04/05/24
--- OUTSIDE RECORDS SUMMARY | 2025-09-09 12:58 | XMS_ITS | Clinical Summary ---
Author Organization [facility] Address [address] [place] [address] Phone Care Team Providers Care Master Esthetician Name Role Phone David Martinez NP Primary Care Provider Allergies No known active allergies Medications docusate sodium (COLACE) 100 mg capsule Take 1 capsule (100 mg total) by mouth 2 (two) times a day. 05/03/2025 Active amitriptyline (ELAVIL) 10 mg tablet Take 1 tablet (10 mg total) by mouth if needed. at bedtime. 05/03/2025 Active omeprazole (PriLOSEC) [address] capsule Take 1 capsule (20 mg total) by mouth if needed. 08/14/2025 Active traZODone (DESYREL) 50 mg tablet Take 1 tablet (50 mg total) by mouth at bedtime as needed. at bedtime for sleep Active Active Problems No known active problems Encounters Date Type Department Care Team Description 08/27/2025 11:13 AM EDT - 08/27/2025 2:16 PM EDT Emergency [facility] Emergency [address] [place] [id number] George Freedman DO Vagal reaction (Primary Dx) Discharge Disposition: Home or Self Care from Last 3 Months Surgical History Surgery Date Site/Laterality Comments GASTRIC BYPASS 11/30/2023 - 11/29/2024 TONSILLECTOMY Social History Tobacco Use Types Packs/Day Years Used Date Smoking Tobacco: Never Smokeless Tobacco: Never Tobacco Cessation:Counseling Given: Not Answered Comments Unknown Sex and Gender Information Value Date Recorded Sex Assigned at Not on file Legal Sex Female 9:25 AM EST Gender Identity Not on file Sexual Orientation Not on file Obstetrics History Last Filed Vital Signs Vital Sign Reading Time Taken Comments Blood Pressure 117/84 08/27/2025 2:12 PM EDT Pulse 73 08/27/2025 2:12 PM EDT Temperature 36.7 C (98.1 F) 08/27/2025 11:08 AM EDT Respiratory Rate 18 08/27/2025 2:12 PM EDT Oxygen Saturation 99% 08/27/2025 2:12 PM EDT Inhaled Oxygen Concentration - - Weight 93 kg (205 lb) 08/27/2025 11:09 AM EDT Height 165.1 cm (5' 5 ) 08/27/2025 11:09 AM EDT Body Mass Index 34.11 08/27/2025 11:09 AM EDT Plan of Treatment Health Maintenance Due Date Last Done Comments Hepatitis B Vaccines (1 of 3 - 19+ 3-dose series) 2005 Cervical Cancer Screening: P ap Smear 2007 HPV Vaccines (1 - 3-dose SCD M series) 2013 Cholesterol Screening (Lipid Panel) 10/27/2022 Hepatitis C Screening 10/27/2022 Social Influencers of Health Screening 10/27/2022 DTaP,Tdap,and Td Vaccines (2 - Td or Tdap) 03/10/2024 03/10/2014 Depression Screening 11/30/2024 COVID-19 Vaccine ( - 2023-2 5 season) 2025 Influenza Vaccine (#1) 2025 RSV Immunization Adult Patie nts (1 - 1-dose 75+ series) 2061 HIV Screening Completed 08/27/2025 HIB Vaccines Aged Out No longer eligi [...] on patient's age to complete this topic Procedures Procedure Name Priority Date/Time Associated Diagnosis Comments RHYTHM ECG, REPORT Routine 08/27/2025 1: [address] HEAD WO CONTRAST STAT 08/27/2025 1 :19 PM EDT POC , URINE DIAGNOSTIC STAT 08/27/2025 12:50 PM EDT URINALYSIS WITH REFLEX MICROSCOPIC STAT 08/27/2025 12:45 PM EDT URINALYSIS WITH REFLEX MICROSCOPIC STAT 08/27/2025 12:45 PM EDT LACTATE, WITH REFLEX STAT 08/27/2025 12:09 PM EDT HIV 1, 2 ANTIBODY, P24 ANTIGEN WITH REFLEX TO DIFFERENTIATION STAT 08/27/2025 12:09 PM EDT ECG 12-LEAD STAT 08/27/2025 11:25 AM EDT CBC WITH AUTO DIFFERENTIAL STAT 08/27/2025 11:21 AM EDT TROPONIN I HIGH SENSITIVITY STAT 08/27/2025 11:21 AM EDT BASIC METABOLIC PANEL STAT 08/27/2025 11:21 AM EDT CBC AND DIFFERENTIAL STAT 08/27/2025 11:21 AM EDT from Last 3 Months Results * RHYTHM ECG, REPORT (08/27/2025 1:36 PM EDT) Narrative George Freedman, - 08/27/2025 1:36 PM EDT George Freedman DO 08/27/2025 1:38 PM ECG Rhythm Interpretation and Report Date/Time: 08/27/2025 1:36 PM Performed by: George Freedman DO Authorized by: George Freedman DO ECG interpreted by ED Physician in the absence of a auto rental supervisor: yes Previous ECG: Previous ECG: Unavailable Rate: ECG rate: 67 ECG rate assessment: normal Rhythm: Rhythm: sinus rhythm Ectopy: Ectopy: none ST segments: ST segments: Normal T waves: T waves: normal us George Freedman DO ECG ORDERABLES Final Result * CT Head wo Contrast (08/27/2025 1:19 PM EDT) Anatomical Region Laterality Modality Head and Neck Computed Tomogra phy 08/27/2025 1:25 PM EDT Impressions 08/27/2025 1:29 PM EDT No acute intracranial abnormality including hemorrhage, mass effect, hydrocephalus, or acute territorial edematous infarction. -------- FINAL REPORT -------- Dictated By: Mark Aguirre Dictated Date: 08/27/2025 13:25 ET Assigned Physician: Mark Aguirre Reviewed and Electronically Signed By: Mark Aguirre Signed Date: 08/27/2025 13:29 ET Workstation ID: [id number] Transcribed By: Self Edit Transcribed Date: 08/27/2025 13:25 ET Narrative 08/27/2025 1:29 PM EDT EXAMINATION: CT HEAD WO CONTRAST CLINICAL INFORMATION: Dizziness, non-specific COMPARISON: None. TECHNIQUE: Contiguous axial imaging was performed from the skull base to vertex without intravenous contrast. Sagittal and coronal reformatted images were obtained. RADIATION DOSE INDICATORS: CT Dose Summary Up-to-date CT equipment and radiation dose reduction techniques were employed. CTDIvol: 39.6 mGy. DLP: 668 mGy-cm. These indicators are not patient dose, but values generated from the CT scanner acquisition factors. This CT examination was performed using dose optimization techniques as appropriate, variously including the following: *Automated exposure control *Adjustment of mA and/or kV according to patient size (this includes techniques or standardized protocols for targeted exams where dose is matched to indication/reason for exam; i.e. extremities or head) *Use of iterative reconstruction technique FINDINGS: No acute osseous or soft tissue abnormality. The mastoid air cells and visualized portions of the paranasal sinuses are well aerated. There is no evidence of acute intracranial hemorrhage or territorial infarction. No abnormal mass effect or midline shift is seen. [place] to white matter differentiation is well preserved. No extra-axial fluid collections are identified. No hydrocephalus. No significant volume loss. There is no abnormal attenuation within the brain parenchyma. Procedure Note Mark Aguirre MD - 08/27/2025 EXAMINATION: CT HEAD WO CONTRAST CLINICAL INFORMATION: Dizziness, non-specific COMPARISON: None. TECHNIQUE: Contiguous axial imaging was performed from the skull base to vertexwithout intravenous contrast. Sagittal and coronal reformatted images wereobtained. RADIATION DOSE INDICATORS: CT Dose Summary Up-to-date CT equipment and radiation dose reduction techniques wereemployed. CTDIvol: 39.6 mGy. DLP: 668 mGy-cm. These indicators are not patient dose, but values generated from the [employer]canner acquisition factors. This CT examination was performed using dose optimization techniques asappropriate, variously including the following: *Automated exposure control *Adjustment of mA and/or kV according to patient size (this includestechniques or standardized protocols for targeted exams where dose ismatched to indication/reason for exam; i.e. extremities or head) *Use of iterative reconstruction technique FINDINGS: No acute osseous or soft tissue abnormality. The mastoid air cells andvisualized portions of the paranasal sinuses are well aerated. There is no evidence of acute intracranial hemorrhage or territorialinfarction. No abnormal mass effect or midline shift is seen. [place] towhite matter differentiation is well preserved. No extra-axial fluidcollections are identified. No hydrocephalus. No significant volume loss. There is no abnormalattenuation within the brain parenchyma. IMPRESSION: No acute intracranial abnormality including hemorrhage, mass effect,hydrocephalus, or acute territorial edematous infarction. -------- FINAL REPORT -------- Dictated By: Mark Aguirre Dictated Date: 08/27/2025 13:25 ET Assigned Physician: Mark Aguirre Reviewed and Electronically Signed By: Mark Aguirre Signed Date: 08/27/2025 13:29 ET Workstation ID: [id number] Transcribed By: Self Edit Transcribed Date: 08/27/2025 13:25 ET us George Freedman DO IMG CT PROCEDURES Final Resul t * POC , urine manually resulted (08/27/2025 12:50 PM EDT) HCG, Ur POC Negative Negative POC hCG Int QC Pass? Yes Yes EXPIRATION DATE POC 01/29/2027 LOT NUMBER POC [id number] Urine Urine specimen obtained by clean catch procedure / Unknown 08/27/2025 12:50 PM EDT George Freedman DO POINT OF CARE TEST ENTER/EDIT ORDERABLES Final Result * (ABNORMAL) Urinalysis with reflex microscopic (08/27/2025 12:45 PM EDT) [facility] Color, Urine Yellow Colorless, Yellow LAB URINALYSIS - AUTOMATED METHOD 08/27/2025 1:03 PM EDT [facility] Clarity, Urine Clear Clear LAB URINALYSIS - AUTOMATED METHOD [facility]25 [facility] Specific [place] Urine 1.010 1.005 - 1.030 LAB URINALYSIS - AUTOMATED METHOD 08/27/2025 1:03 PM EDT [facility] pH, Urine 6.0 5.0 - 8.0 pH LAB URINALYSIS - AUTOMATED METHOD 08/27/2025 1:03 PM [facility] Leukocytes, Urine Trace(A) Negative WBCs/mcL LAB URINALYSIS - AUTOMATED METHOD 08/27/2025 1:03 PM [facility] Nitrite, Urine Negative Negative LAB URINALYSIS - AUTOMATED METHOD 08/27/2025 1:[facility] PM [facility] Protein, Urine Negative Negative mg/dL LAB URINALYSIS - AUTOMATED METHOD 08/27/2025 1:03 PM EDT [facility] Glucose, Urine Negative Negative mg/dL LAB URINALYSIS - AUTOMATED METHOD 08/27/2025 1:03 PM EDT [facility] Ketones, Urine Negative Negative mg/dL LAB URINALYSIS - AUTOMATED METHOD 08/27/2025 1:03 PM EDT [facility] Blood, Urine Negative Negative mg/dL LAB URINALYSIS - AUTOMATED METHOD 08/27/2025 1:03 PM EDT [facility] Urine Urine specimen obtained by clean catch procedure / Unknown Non-blood Collection / Unknown 08/27/2025 12:45 PM EDT 08/27/2025 12:50 PM EDT us George Freedman DO LAB URINE ORDERABLES Final Re sult Performing Organization Address City/[facility]/ZIP Co de Phone Number [facility] Reg. #:[id number] [address] [place] [address], [place] [phone] * Lactate, with Reflex (08/27/2025 12:09 PM EDT) LACTIC ACID 1.1 <=2.0 mmol/L LAB BLOOD GAS METHOD 08/27/2025 12:17 PM EDT [facility] Blood Venous blood specimen / Unknown Venipuncture / Unknown 08/27/2025 12:09 PM EDT 08/27/2025 12:12 PM EDT us George Freedman DO LAB BLOOD ORDERABLES Final Re sult [facility] Reg. #:[id number] [address] [place] [address], [place] [phone] * HIV 1,2 antibody, p24 antigen with reflex to differentiation (08/27/2025 12:09 PM EDT) [facility] HIV Combo AB/AG Negative Negative LAB CHEMISTRY METHOD 08/27/2025 10:20 PM EDT [facility] Blood Venous blood specimen / Unknown Venipuncture / Unknown 08/27/2025 12:09 PM EDT 08/27/2025 12:12 PM EDT Narrative [facility] - 08/27/2025 10:20 PM EDT Nonreactive result does not rule out HIV infection. us George Freedman DO LAB BLOOD ORDERABLES Final Re sult Performing Organization Address City/[facility]/ZIP Co de Phone Number [facility] [address] [place] [address], [place] [phone] * ECG 12 lead (08/27/2025 11:25 AM EDT) [facility] Ventricular Rate ECG 67 BPM GEMUSE Atrial Rate 67 BPM GEMUSE P-R Interval 142 ms GEMUSE QRS Duration 88 ms GEMUSE Q-T Interval 382 ms GEMUSE QTc 403 ms GEMUSE P Wave [place] 25 degrees GEMUSE R [place] 18 degrees GEMUSE T [place] 13 degrees GEMUSE ECG Interpretation Normal sinus rhythm Normal ECG No previous ECGs available Confirmed by Burton Bautista ([id number]) on 08/28/2025 4:38:25 PM GEMUSE 08/27/2025 11:2 5 AM EDT 08/28/2025 4:38 PM EDT us George Freedman DO ECG ORDERABLES Final Result GEMUSE * Troponin I high sensitivity (08/27/2025 11:21 AM EDT) [facility] High Sensitivity Troponin I <2 0 - 14 ng/L LAB CHEMISTRY METHOD 08/27/2025 11:57 AM EDT [facility] Blood Venous blood specimen / Unknown Venipuncture / Unknown 08/27/2025 11:21 AM EDT 08/27/2025 11:29 AM EDT Narrative [facility] - 08/27/2025 11:57 AM EDT HSTnI results stratify to HIGH RISK category if any value >100 ng/L or delta at 1 hour is greater than or equal to 15 ng/L (male and female). Note: Delta values are not applicable if symptoms began more than 12 hours pre-arrival. Risk stratification should include the calculation of the HEART score. Testing performed using [employer] Access AccuTnI+3 Assay. us George Freedman DO LAB BLOOD ORDERABLES Final Re sult [facility] [place] Reg. #:[id number] [address] [place] [address], * CBC auto differential (08/27/2025 11:21 AM EDT) WBC 7.7 4.0 - 10.5 K/[facility] LAB HEMETOLOGY METHOD 08/27/2025 11:31 AM [facility] RBC 4.41 4.20 - 5.40 M/[facility] LAB HEMETOLOGY METHOD 08/27/2025 11:31 AM [facility] Hemoglobin 13.3 12.5 - 16.0 g/dL LAB HEMETOLOGY METHOD 08/27/2025 11:31 AM [facility] Hematocrit 39.0 37.0 - 47.0 % LAB HEMETOLOGY METHOD 08/27/2025 11:31 AM [facility] MCV 88.4 78.0 - 100.0 FL LAB HEMETOLOGY METHOD 08/27/2025 11:31 AM [facility] MCH 30.2 25.0 - 33.0 pcg LAB HEMETOLOGY METHOD 08/27/2025 11:31 AM [facility] MCHC 34.1 32.0 - 36.0 g/dL LAB HEMETOLOGY METHOD 08/27/2025 11:31 AM [facility] RDW 14.3 12.1 - 16.2 % LAB HEMETOLOGY METHOD 08/27/2025 11:31 AM [facility] Platelets 294 150 - 450 K/mcL LAB HEMETOLOGY METHOD 08/27/2025 11:31 AM [facility] MPV 8.9 7.4 - 11.4 FL LAB HEMETOLOGY METHOD 08/27/2025 11:31 AM [facility] Neutrophils Relative 69.8 44.0 - 74.0 % LAB HEMETOLOGY METHOD 08/27/2025 11:31 AM [facility] Lymphocytes Relative 22.8 20.0 - 48.0 % LAB HEMETOLOGY METHOD 08/27/2025 11:31 AM [facility] Monocytes Relative 5.8 2.0 - 12.0 % LAB HEMETOLOGY METHOD 08/27/2025 11:31 AM [facility] Eosinophils Relative 1.0 0.0 - 6.0 % LAB HEMETOLOGY METHOD 08/27/2025 11:31 AM [facility] Basophils Relative 0.3 0.0 - 2.0 % LAB HEMETOLOGY METHOD 08/27/2025 11:31 AM [facility] Neutrophils Absolute 5.38 1.80 - 7.80 K/mcL LAB HEMETOLOGY METHOD 08/27/2025 11:31 AM [facility] Lymphocytes Absolute 1.76 1.00 - 3.20 K/mcL LAB HEMETOLOGY METHOD 08/27/2025 11:31 AM EDT [facility] Monocytes Absolute 0.45 0.00 - 0.80 K/mcL LAB HEMETOLOGY METHOD 08/27/2025 11:31 AM EDT [facility] Eosinophils Absolute 0.08 0.00 - 0.50 K/mcL LAB HEMETOLOGY METHOD 08/27/2025 11:31 AM EDT [facility] Basophils Absolute <0.03 0.00 - 0.20 K/mcL LAB HEMETOLOGY METHOD 08/27/2025 11:31 AM EDT [facility] Blood Venous blood specimen / Unknown Venipuncture / Unknown 08/27/2025 11:21 AM EDT 08/27/2025 11:29 AM EDT us George Freedman DO LAB BLOOD ORDERABLES Final Re sult [facility] [place] Reg. #:[id number] [address] [place] [address], * (ABNORMAL) Basic metabolic panel (08/27/2025 11:21 AM EDT) Sodium 138 135 - 145 mmol/L LAB CHEMISTRY METHOD 08/27/2025 11:47 AM [facility] Potassium 3.7 3.5 - 5.1 mmol/L LAB CHEMISTRY METHOD 08/27/2025 11:47 AM [facility] Chloride 105 98 - 107 mmol/L LAB CHEMISTRY METHOD 08/27/2025 11:47 AM [facility] CO2 29 24 - 32 mmol/L LAB CHEMISTRY METHOD 08/27/2025 11:47 AM [facility] Anion Gap 4(L) 5 - 14 LAB CHEMISTRY METHOD 08/27/2025 11:47 AM EDT [facility] Glucose 98 70 - 199 mg/dL LAB CHEMISTRY METHOD 08/27/2025 11:47 AM [facility] BUN 11 7 - 17 mg/dL LAB CHEMISTRY METHOD 08/27/2025 11:47 AM [facility] Creatinine 0.63 0.50 - 1.00 mg/dL LAB CHEMISTRY METHOD 08/27/2025 11:47 AM [facility] eGFR 116 >=60 mL/min/1. 73m2 LAB CHEMISTRY METHOD 08/27/2025 11:47 AM [facility] Comment:Calculation based on the Chronic Kidney Disease Epidemiology Collaboration (CKD-EPI) equation refit without adjustment for race. BUN/Creatinine Ratio 17.5 12.0 - 20.0 LAB CHEMISTRY METHOD 08/27/2025 11:47 AM [facility] Calcium 9.6 8.4 - 10.2 mg/dL LAB CHEMISTRY METHOD 08/27/2025 11:47 AM [facility] Blood Venous blood specimen / Unknown Venipuncture / Unknown 08/27/2025 11:21 AM EDT 08/27/2025 11:29 AM EDT George Freedman DO LAB BLOOD ORDERABLES Final Re sult [facility] [place] Reg. #:[id number] [address] [place] [address], [place] [phone] from Last 3 Months Insurance [facility] Care Teams Master Esthetician Relationship Specialty Start Date End Date David Martinez NP [address] [place], [place] PCP - General 10/08/23
--- OUTSIDE RECORDS SUMMARY | 2025-09-09 12:58 | XMS_ITS | Encounter Summary ---
Author Organization [facility] Address [address] [facility] [address] [place] [address] Phone Care Team Providers Care Director Of Dietary Name Role Phone Melinda Martinez NP Primary Care Provider + Kait Kraus MD Unavailable Mark Rocha PA-C Unavailable + [phone] Encounter Details Date Type Department Care Team (Late st Contact Info) Description 08/28/2024 [facility] Generated VIRTUAL DEPARTMENT [address] [place] [phone] Unknown, Unknown, Social History Tobacco Use Types [...] Gomez NP - 08/28/2024 10:17 AM EDT [facility] Patient Discharge (Text) Discharge Summary Admission and [...] two week post operative appointment with a PA/OPTICAL FABRICATOR at the [facility]. Advance Care Plan: Full Code 22/06 Contact Information: For questions during office hours, contact the [facility] at [phone]. For urgent medical questions after hours, have the lead quality control technician surgeon paged at [phone]. DC with Ischemic Stroke or TIA No [...] 2.0 08/27 0320 ESigned by: JEREMIAS GOMEZ OPTICAL FABRICATOR(Pager:)on: 08/28/24@1034 Documentation Started: 08/28/24 @ 1017 Documentation time: 17.40 min CC OTHER PROVIDER: PRIMARY CARE: DR MELINDA MARTINEZ MTDD documented in this encounter Plan of Treatment Not on file documented as of this encounter Visit Diagnoses Not on filedocumented in this encounter Care Teams Director Of Dietary Relationship Specialty Start Date End Date Melinda Martinez NP [facility] [place] [address] PCP - General Nurse Practitioner 05/30/24 Kait Kraus MD [facility] [address] [place] [address] Gastroenterology 11/10/24 Mark Rocha PA-C [address] [place] [phone] Physician [employer] 11/10/24 documented as of this encounter Additional Source Comments The information contained in this document represents components of the legal health record. It is not the complete legal health record.[facility]
--- OUTSIDE RECORDS SUMMARY | 2025-09-09 12:58 | XMS_ITS | Clinical Summary ---
Author Organization [facility] Address [address] [address] Phone Care Team Providers Care Thermite Welder Name Role Phone David Martinez NP Primary Care Provider + Kait Kraus MD Unavailable Mark Rocha PA-C Unavailable [phone] Allergies No known active allergies Medications cholecalciferol (VITAMIN D3) 5,000 unit capsule Take 1 capsule by mouth every morning. 4 Active traZODone (DESYREL) 50 MG tablet Take 50 mg by mouth nightly at bedtime as needed. 4 Active ursodioL (ACTIGALL) 250 mg tablet Take 1 tablet (250 mg total) by mouth 2 (two) times a day. Start at 2 weeks postop 180 tablet 1 4 Active polyethylene glycol (MIRALAX) 17 gram packet Take 17 g by mouth daily. 30 packet 1 4 Active simethicone (MYLICON) 80 mg chewable tablet Take 1 tablet (80 mg total) by mouth every 6 (six) hours as needed (for gas pain). 28 tablet 1 4 Active omeprazole (PRILOSEC) 20 MG capsuleIndicatio ns:Gastroesophag eal reflux disease without esophagitis Take 1 capsule (20 mg total) by mouth 2 (two) times a day. 180 capsule 2 4 08/22/20 25 Active Problems Problem Noted Date Diagnosed Date [...] Loss [address] [place] [address] George Taveras MD from Last 3 Months [...] 9:40 AM EDT Sexual Orientation Straight 05/30/2024 9 :40 AM EDT Last Filed Vital Signs Vital [...] HIV ONE-TIME SCREENING (18-6 5 YEARS) 2004 PAP SMEAR 2007 INFLUENZA VACCINE (#1) 2025 COVID-19 VACCINE ( - 2024-2 6 season) 2025 SCREENING FOR DIABETES 12/09/2027 , 06/14/2024 SMOKING STATUS SCREENING (On ce After 26 Yrs) Completed 06/14/2024 HEPATITIS A VACCINES Aged Out No long er eligible based on patient's age to complete this topic HIB VACCINES Aged Out No longer eligi ble based on patient's age to complete this topic MENINGOCOCCAL VACCINES (ACWY) Aged Out No longer eligible based on patient's age to complete this topic MENINGOCOCCAL VACCINES (B) Aged Out N o longer eligible based on patient's age to complete this topic PNEUMOCOCCAL VACCINES (0-49 years) Aged Out No longer eligible b ased on patient's age to complete this topic Medical Devices Not on file Insurance [facility] ACO Care Teams Thermite Welder Relationship Specialty Start Date End Date David Martinez NP [address] [facility] [place] [address] PCP - General Nurse Practitioner 05/30/24 Kait Kraus MD [facility] [address] [place] [address] Gastroenterology 11/10/24 Mark Rocha PA-C [address] [place] [id number] Physician Fuller Brush Worker 11/10/24 Additional Source Comments The information contained in this document represents components of the legal health record. It is not the complete legal health record.[facility]
--- OUTSIDE RECORDS SUMMARY | 2025-09-09 12:58 | XMS_ITS | Encounter Summary ---
Author Organization [facility] Address [address] [facility] [address] [place] [address] Phone Care Team Providers Care Substance Abuse Nurse Name Role Phone Melinda Martinez NP Primary Care Provider + Kait Kraus MD Unavailable Mark Rocha PA-C Unavailable + [phone] Encounter Details Date Type Department Care Team (Late st Contact Info) Description 08/26/2024 [employer] Generated VIRTUAL DEPARTMENT [address] [place] [phone] Unknown, Unknown, Social History Tobacco Use Types [...] Light PA-C - 08/26/2024 6:32 PM EDT [facility] OP Note, Brief Procedure Procedure Name: [...] WH4 ESigned by: ANABEL TAVERAS MD(Pager:[phone] / [phone])on: 08/26/24@183 Documentation Started: 08/26/24 @ 183 Documentation time: 3.00 sharonda CC OTHER PROVIDER: PRIMARY CARE: DR MELINDA MARTINEZ MTDD * Anabel Taveras MD - 08/26/2024 12:00 AM EDT [facility] DATE OF PROCEDURE: 08/26/2024. PREOPERATIVE DIAGNOSIS: Chronic morbid obesity, (BMI of 48). POSTOPERATIVE DIAGNOSIS: Chronic morbid obesity, (BMI of 48). PROCEDURE: Laparoscopic Lovely-en-Y Gastric Bypass, Wedge Liver Biopsy. SURGEON: Dr. Anabel Taveras. CLOTH CUTTING INSPECTOR: LINUS Gonzalez. ANESTHESIA: General Endotracheal. INDICATIONS: This [...] The patient was also evaluated by a vocational examiner as to their emotional stability, coping mechanisms, [...] the pancreatico-biliary limb to the Lovely limb [id number]-kb-[id number] with interrupted 2-0 silk sutures. Adjoining enterotomies [...] record. FOCI DT: 1323 TD:08/27/24 TT:1500 ID: [id number] ANABEL TAVERAS MD electronically signed 08/29/24 0630 CC OTHER PROVIDER: PRIMARY CARE: UNLISTED PROVIDER documented in this encounter Plan of Treatment Not on file documented as of this encounter Visit Diagnoses Not on filedocumented in this encounter Care Teams Substance Abuse Nurse Relationship Specialty Start Date End Date Melinda Martinez NP 1960 [facility] [place] [address] PCP - General Nurse Practitioner 05/30/24 Kait Kraus MD [address] [place] [address] Gastroenterology 11/10/24 Mark Rocha PA-C [address] [place], [place] [id number] [place] [address] Physician Outside B2B Sales 11/10/24 documented as of this encounter Additional Source Comments The information contained in this document represents components of the legal health record. It is not the complete legal health record.[facility]
--- OUTSIDE RECORDS SUMMARY | 2025-09-09 12:58 | XMS_ITS | Encounter Summary ---
Author Organization [facility] Address [address] [facility] [address] [place] [address] Phone Care Team Providers Care Research Chemist Name Role Phone Melinda Martinez NP Primary Care Provider + Kait Kraus MD Unavailable Mark Rocha PA-C Unavailable + [phone] Encounter Details Date Type Department Care Team ([facility] st Contact Info) Description 11/25/2024 [employer] Generated VIRTUAL DEPARTMENT [address] [place] [phone] Unknown, Unknown, Social History Tobacco Use Types [...] 11/25/2024 1:38 PM ESTAssociated Order(s): ENDOSCOPY PROCEDURE [facility] Patient Name: Suzette Carlson Procedure Date: 11/25/2024 [...] 9:50 AM EST) Nicotine <2 () ng/mL [facility] (CLIA# [id number]) Cotinine <2 () ng/mL [facility] (CLIA# [id number]) 4-YW-Tyegcxnp <2 () ng/mL [facility] (CLIA# [id number]) Nornicotine <2 () ng/mL [facility] (CLIA# [id number]) NOR-Cotinine <2 () ng/mL [facility] (CLIA# [id number]) Anabasine <2 () ng/mL [facility] (CLIA# [id number]) Comment: Individuals exposed to second hand or passive tobacco smoke may demonstrate concentrations of nicotine and metabolites greater than those indicated for non- smokers. Reference Ranges: Active Non-Smoker Tobacco User (ng/mL) (ng/mL) Nicotine <17 200-700 Cotinine <20 300-1300 5-AN-Epmjxexl <50 3000-63011 Nor-Nicotine <2 30-900 Nor-Cotinine <2 Not Established Anabasine <2 10-500 This test was developed and its analytical performance characteristics have been determined by [facility] [place], [place]. It has not been cleared or approved by the U.S. Food and Drug Administration. This assay has been validated pursuant to the CLIA regulations and is used for clinical purposes. Test performed at [facility] [place] [id number] [place] [address] Director: Bolivar Dickey M.D., Ph.D.,Director of Laboratories 12/09/2024 9:50 AM EST 12/09/2024 12:40 PM EST Ector Light PA-C URINE ORDERABLES Final Resul t [facility] (CLIA# [id number]) [address] [place] [address] * Type and Screen (ABO,Rh,Antibody Screen) (12/09/2024 9:50 AM EST) Patient ABO/Rh O POSITIVE [facility] (CLIA# [id number]) Antibody Screen NEGATIVE [facility] (CLIA# [id number]) 12/09/2024 9:50 AM EST 12/09/2024 12:40 PM EST Ector Light PA-C BLOOD BANK TEST ORDERABLES F inal Result [facility] (CLIA# [id number]) [address] [place] [address] * (ABNORMAL) Iron and iron binding capacity (12/09/2024 9:50 AM EST) Iron 23(L) 50 - 170 ug/dL [facility] (CLIA# [id number]) Total Iron Binding Capacity 404 250 - 425 ug/dL [facility] (CLIA# [id number]) Percent Iron Saturation 6(L) 17 - 50 % [facility] (CLIA# [id number]) 12/09/2024 9:50 AM EST 12/09/2024 12:54 PM EST Ayesha Wooten PA-C LAB BLOOD ORDERABLES Fi nal Result Performing Organization Address [facility]/ZIP Co de Phone Number [facility] (CLIA# [id number]) [address] [place] [address] * HCG, urine (12/09/2024 9:50 AM EST) Test, Urine NEGATIVE NEGATIVE [facility] (CLIA# [id number]) Comment: If a negative result is obtained and expected, recollection after 48-72 hours is suggested. 12/09/2024 9:50 AM EST 12/09/2024 12:40 PM EST Ector Light PA-C URINE ORDERABLES Final Resul t Performing Organization Address City/[facility]/ZIP Co de Phone Number [facility] (CLIA# [id number]) [address] [place] [address] * ENDOSCOPY PROCEDURE (11/25/2024 1:38 PM EST) 11/25/2024 1:38 PM EST Narrative Procedure Note Kait Kraus MD - 11/25/2024 1:38 PM EST [facility] GI Patient Name: Suzette Carlson Procedure Date: [...] on filedocumented in this encounter Care Teams Research Chemist Relationship Specialty Start Date End Date Melinda Martinez NP [facility] [place] [address] PCP - General Nurse Practitioner 05/30/24 Kait Kraus MD [facility] [address] [place] [address] Gastroenterology 11/10/24 Mark Rocha PA-C [address] [place] [address] Physician Drop Wire Aligner 11/10/24 documented as of this encounter Additional Source Comments The information contained in this document represents components of the legal health record. It is not the complete legal health record.[facility]
== END 2025-09-09 12:47 | disposition home or self-care (01) ==
LOC: HO.MRI 12:46
PROVIDERS: PCP Nurse Practitioner Family; Visit Provider Obstetrics & Gynecology
DX: N83.299 Other ovarian cyst, unspecified side (principal)
CPT/HCPCS: 72197; A9585

== ENCOUNTER 2025-10-05 11:33 | Outpatient (AMB) | payer OTHER, SELFPAY ==
--- NOTE | 2025-10-05 11:43 | MHC.OFFVIS ---
Vital Signs 10/05/25 11:44 Height 5 ft 6 in Weight 211 lb BMI 34.1 Intake Visit Reasons: MRI results Compliance Engineer Products Required: No Information Interpreted: non-clinical & clinical Accompanied by: Self / Same As Patient Allergies No Known Allergies Allergy (Verified 10/05/25 11:45) HPI Comments Details: Presenting for MRI follow-up done on 09/12/2025 which showed the following: IMPRESSION: 1. Findings compatible with adenomyosis of the uterus is described. 2. Probable 2.3 x 1.7 x 1.7 cm left paraovarian cyst. [facility] Medical History Meralgia paresthetica of left side Spasm of left piriformis muscle Migraines GERD (gastroesophageal reflux disease) Grief reaction Extreme obesity Seasonal allergies Surgical History Lipoma Hx of surgical procedure (11/14/24) Gastric bypass status for obesity Hx of breast reduction, elective Hx of tonsillectomy Family History Paternal Uncle No problems noted. 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 Current occupational exposures/hazards: No Sexual orientation: Straight/Heterosexual Gender identity: Female Cognitive needs: No Hearing needs: No Vision needs: No Female Reproductive History Menstrual Age of Menarche: 13 Review of Systems Const All systems reviewed & are unremarkable except as noted in HPI and below Reports as per HPI and Reports no additional complaints GI Reports no additional complaints Reports no additional complaints Physical Exam Vital Signs: BMI result Body Mass Index 34.1 Assessment & Plan Assessment & Plan (1) Para-ovarian cyst: Code(s): Q50.5 - Embryonic cyst of broad ligament Category: Medical Plan: Discussed with the patient the results of the MRI showing left simple paraovarian cyst, the patient was reassured. All questions answered, the patient verbalized understanding Coding Level of Care Code Est Pt Level 3 (70564) Diagnoses Para-ovarian cyst Q50.5
[2025-10-05 11:44] VITALS: BMI 34.1
--- OUTSIDE RECORDS SUMMARY | 2025-10-05 14:33 | XMS_ITS | Encounter Summary ---
Author Organization [facility] Address [address] [facility] [address] [place] [address] Phone Care Team Providers Care Medical Front Desk Coordinator Name Role Phone Melinda Martinez NP Primary Care Provider + Kait Kraus MD Unavailable Mark Rocha PA-C Unavailable + [phone] Encounter Details Date Type Department Care Team ([facility] st Contact Info) Description 11/25/2024 [employer] Generated VIRTUAL DEPARTMENT [address] [place] [phone] Unknown, Unknown, Social History Tobacco Use Types [...] 11/25/2024 1:38 PM ESTAssociated Order(s): ENDOSCOPY PROCEDURE [facility] Patient Name: Suzette Carlson Procedure Date: 11/25/2024 [...] 9:50 AM EST) Nicotine <2 () ng/mL [facility] (CLIA# [id number]) Cotinine <2 () ng/mL [facility] (CLIA# [id number]) 4-HQ-Gdrtcodq <2 () ng/mL [facility] (CLIA# [id number]) Nornicotine <2 () ng/mL [facility] (CLIA# [id number]) NOR-Cotinine <2 () ng/mL [facility] (CLIA# [id number]) Anabasine <2 () ng/mL [facility] (CLIA# [id number]) Comment: Individuals exposed to second hand or passive tobacco smoke may demonstrate concentrations of nicotine and metabolites greater than those indicated for non- smokers. Reference Ranges: Active Non-Smoker Tobacco User (ng/mL) (ng/mL) Nicotine <17 200-700 Cotinine <20 300-1300 1-WP-Gcuoqewi <50 3000-64652 Nor-Nicotine <2 30-900 Nor-Cotinine <2 Not Established Anabasine <2 10-500 This test was developed and its analytical performance characteristics have been determined by [employer] [place], [place]. It has not been cleared or approved by the U.S. Food and Drug Administration. This assay has been validated pursuant to the CLIA regulations and is used for clinical purposes. Test performed at [facility] [place] [id number] [place] [address] Director: Bolivar Dickey M.D., Ph.D.,Director of Laboratories 12/09/2024 9:50 AM EST 12/09/2024 12:40 PM EST Ector Light PA-C URINE ORDERABLES Final Resul t [facility] (CLIA# [id number]) [address] [place] [address] * Type and Screen (ABO,Rh,Antibody Screen) (12/09/2024 9:50 AM EST) Patient ABO/Rh O POSITIVE [facility] (CLIA# [id number]) Antibody Screen NEGATIVE [facility] (CLIA# [id number]) 12/09/2024 9:50 AM EST 12/09/2024 12:40 PM EST Ector Light PA-C LAB BLOOD BANK TEST ORDERABL ES Final Result Performing Organization Address [facility]/ZIP Co de Phone Number [facility] (CLIA# [id number]) [address] [place] [address] * (ABNORMAL) Iron and iron binding capacity (12/09/2024 9:50 AM EST) Iron 23(L) 50 - 170 ug/dL [facility] (CLIA# [id number]) Total Iron Binding Capacity 404 250 - 425 ug/dL [facility] (CLIA# [id number]) Percent Iron Saturation 6(L) 17 - 50 % [facility] (CLIA# [id number]) 12/09/2024 9:50 AM EST 12/09/2024 12:54 PM EST us Ayesha Wooten PA-C LAB BLOOD BKR ORDERABLE S Final Result Performing Organization Address [facility]/ZIP Co de Phone Number [facility] (CLIA# [id number]) [address] [place] [address] * HCG, urine (12/09/2024 9:50 AM EST) Test, Urine NEGATIVE NEGATIVE [facility] (CLIA# [id number]) Comment: If a negative result is obtained and expected, recollection after 48-72 hours is suggested. 12/09/2024 9:50 AM EST 12/09/2024 12:40 PM EST us Ector Light PA-C LAB URINE ORDERABLES Final R esult Performing Organization Address City/[facility]/ZIP Co de Phone Number [facility] (CLIA# [id number]) [address] [facility] [place] [address] * ENDOSCOPY PROCEDURE (11/25/2024 1:38 PM EST) 11/25/2024 1:38 PM EST Narrative Procedure Note Kait Kraus MD - 11/25/2024 1:38 PM EST [facility] GI Patient Name: Suzette Carlson Procedure Date: [...] on filedocumented in this encounter Care Teams Medical Front Desk Coordinator Relationship Specialty Start Date End Date Melinda Martinez, KASSY [facility] [place] [address] PCP - General Nurse Practitioner 05/30/24 Kait Kraus MD [address] [place] [address] Gastroenterology 11/10/24 Mark Rocha PA-C [address] [place] [address] Physician Auto Travel Counselor 11/10/24 documented as of this encounter Additional Source Comments The information contained in this document represents components of the legal health record. It is not the complete legal health record.[facility]
--- OUTSIDE RECORDS SUMMARY | 2025-10-05 14:33 | XMS_ITS | Clinical Summary ---
Author Organization [facility] Address [address] [place] [address] Phone Care Team Providers Care Strike Plate Attacher Name Role Phone David Martinez NP Primary Care Provider + Kait Kraus MD Unavailable Mark Rocha PA-C Unavailable [phone] Allergies No known active allergies Medications cholecalciferol [...] gas pain). 28 tablet 1 08/17/2024 Active Active Problems Problem Noted Date Diagnosed [...] 07/18/2025 Telephone [facility] [address] [place] [address] George Taveras MD from Last 3 Months [...] topic Medical Devices Not on file [place] [place] [address] ACO Care Teams Strike Plate Attacher Relationship Specialty Start Date End Date David Martinez NP [address] [facility] [place] [address] PCP - General Nurse Practitioner 05/30/24 Kait Kraus MD [facility] [address] [place] [address] [email or web address] 11/10/24 Mark Rocha PA-C [address] [place] [address] [place] [address] [email or web address] Physician Trend Investigator 11/10/24 Additional Source Comments The information contained in this document represents components of the legal health record. It is not the complete legal health record.[facility]
--- OUTSIDE RECORDS SUMMARY | 2025-10-05 14:33 | XMS_ITS | Clinical Summary ---
Author Organization [facility] Address [address] [place] [address] Care Team Providers Care Facility Manager Name Role Phone David Martinez Primary Care Provider [phone] Medications Medication Sig Dispensed Refills Start Date [...] of Treatment Not on file Care Teams Facility Manager Relationship Specialty Start Date End Date David Martinez [address] [place] [address] PCP - General Family Medicine 04/05/24
--- OUTSIDE RECORDS SUMMARY | 2025-10-05 14:33 | XMS_ITS | Clinical Summary ---
Author Organization [facility] Address [address] [place] [address] Phone Care Team Providers Care Stock Cutter Name Role Phone David Martinez NP Primary Care Provider [phone] Allergies No known active allergies Medications docusate [...] EDT - 08/27/2025 2:[address] [facility] Emergency [address] [place] [id number] George Freedman DO Vagal reaction (Primary Dx) [...] ED Physician in the absence of a geodetic advisor: yes Previous ECG: Previous ECG: Unavailable Rate: [...] Signed Date: 08/27/2025 13:29 ET Workstation ID: [id number] Transcribed By: Self Edit Transcribed Date: 08/27/2025 [...] patient dose, but values generated from the [facility] acquisition factors. This CT examination was performed [...] Signed Date: 08/27/2025 13:29 ET Workstation ID: [id number] Transcribed By: Self Edit Transcribed Date: 08/27/2025 13:25 ET us George Freedman DO IMG CT PROCEDURES Final Resul t * POC , urine manually resulted (08/27/2025 12:50 PM EDT) HCG, Ur POC Negative Negative POC hCG Int QC Pass? Yes Yes EXPIRATION DATE POC 01/29/2027 LOT NUMBER POC [id number] Urine Urine specimen obtained by clean catch procedure / Unknown 08/27/2025 12:50 PM EDT George Freedman DO POINT OF CARE TEST ENTER/EDIT ORDERABLES Final Result * (ABNORMAL) Urinalysis with reflex microscopic (08/27/2025 12:45 PM EDT) [facility] Color, Urine Yellow Colorless, Yellow LAB URINALYSIS - AUTOMATED METHOD 08/27/2025 1:03 PM EDT [facility] Clarity, Urine Clear Clear LAB URINALYSIS - AUTOMATED METHOD [facility] Specific [place] Urine 1.010 1.005 - 1.030 LAB URINALYSIS - AUTOMATED METHOD 08/27/2025 1:03 PM EDT [facility] pH, Urine 6.0 5.0 - 8.0 pH LAB URINALYSIS - AUTOMATED METHOD 08/27[facility]2025 1:[facility] Leukocytes, Urine Trace(A) Negative WBCs/mcL LAB URINALYSIS - AUTOMATED METHOD 08/27/2025 1:[facility] Nitrite, Urine Negative Negative LAB URINALYSIS - AUTOMATED METHOD 08/27/2025 1:[facility] Protein, Urine Negative Negative mg/dL LAB URINALYSIS - AUTOMATED METHOD 08/27/2025 1:03 PM EDT [facility] Glucose, Urine Negative Negative mg/dL LAB URINALYSIS - AUTOMATED METHOD 08/27/2025 1:03 PM EDT [facility] Ketones, Urine Negative Negative mg/dL LAB URINALYSIS - AUTOMATED METHOD 08/27/2025 1:03 PM EDT [facility] Blood, Urine Negative Negative mg/dL LAB URINALYSIS - AUTOMATED METHOD 08/27/2025 1:03 PM EDT [facility] Urine Urine specimen obtained by clean catch procedure / Unknown Non-blood Collection / Unknown 08/27/2025 12:45 PM EDT 08/27/2025 12:50 PM EDT us George Freedman DO LAB URINE ORDERABLES Final Re sult Performing Organization Address City/[facility]/ZIP Co de Phone Number [facility] Reg. #:[id number] [address] [place] [address], [place] [phone] * Lactate, with Reflex (08/27/2025 12:09 PM EDT) LACTIC ACID 1.1 <=2.0 mmol/L LAB BLOOD GAS METHOD 08/27/2025 12:17 PM EDT [facility] Blood Venous blood specimen / Unknown Venipuncture / Unknown 08/27/2025 12:09 PM EDT 08/27/2025 12:12 PM EDT us George Freedman DO LAB BLOOD ORDERABLES Final Re sult [facility] Reg. #:[id number] [address] [place] [address], [place] [phone] * HIV 1,2 antibody, p24 antigen with reflex to differentiation (08/27/2025 12:09 PM EDT) [facility] HIV Combo AB/AG Negative Negative LAB CHEMISTRY METHOD 08/27/2025 10:20 PM EDT [facility] Blood Venous blood specimen / Unknown Venipuncture / Unknown 08/27/2025 12:09 PM EDT 08/27/2025 12:12 PM EDT Narrative [facility] - 08/27/2025 10:20 PM EDT Nonreactive result does not rule out HIV infection. us George Freedman DO LAB BLOOD ORDERABLES Final Re sult Performing Organization Address City/[facility]/ZIP Co de Phone Number [facility] [address] [place] [address], [place] [phone] * ECG 12 lead (08/27/2025 11:25 AM EDT) [facility] Ventricular Rate ECG 67 BPM GEMUSE Atrial Rate 67 BPM GEMUSE P-R Interval 142 ms GEMUSE QRS Duration 88 ms GEMUSE Q-T Interval 382 ms GEMUSE QTc 403 ms GEMUSE P Wave Spur 25 degrees GEMUSE R Spur 18 degrees GEMUSE T Spur 13 degrees GEMUSE ECG Interpretation Normal sinus rhythm Normal ECG No previous ECGs available Confirmed by Burton Bautista ([id number]) on 08/28/2025 4:38:25 PM GEMUSE 08/27/2025 11:2 5 AM EDT 08/28/2025 4:38 PM EDT us George Freedman DO ECG ORDERABLES Final Result GEMUSE * Troponin I high sensitivity (08/27/2025 11:21 AM EDT) [facility] High Sensitivity Troponin I <2 0 - 14 ng/L LAB CHEMISTRY METHOD 08/27/2025 11:57 AM EDT [facility] Blood Venous blood specimen / Unknown Venipuncture / Unknown 08/27/2025 11:21 AM EDT 08/27/2025 11:29 AM EDT Narrative [facility] - 08/27/2025 11:57 AM EDT HSTnI results stratify to HIGH RISK category if any value >100 ng/L or delta at 1 hour is greater than or equal to 15 ng/L (male and female). Note: Delta values are not applicable if symptoms began more than 12 hours pre-arrival. Risk stratification should include the calculation of the HEART score. Testing performed using [employer] Mobile Access AccuTnI+3 Assay. us George Freedman DO LAB BLOOD ORDERABLES Final Re sult [facility] [place] Reg. #:[id number] [address] [place] [address], * CBC auto differential (08/27/2025 11:21 AM EDT) WBC 7.7 4.0 - 10.5 K/[facility] LAB HEMETOLOGY METHOD [facility]2025 11[facility] RBC 4.41 4.20 - 5.40 M/[facility] LAB HEMETOLOGY METHOD 08/27/2025 11:[facility] Hemoglobin 13.3 12.5 - 16.0 g/dL LAB HEMETOLOGY METHOD 08/27/2025 11:[facility] Hematocrit 39.0 37.0 - 47.0 % LAB HEMETOLOGY METHOD 08/27/2025 11:[facility] MCV 88.4 78.0 - 100.0 FL LAB HEMETOLOGY METHOD 08/27/2025 11:[facility] MCH 30.2 25.0 - 33.0 pcg LAB HEMETOLOGY METHOD 08/27/2025 11:31 AM [facility] MCHC 34.1 32.0 - 36.0 g/dL LAB HEMETOLOGY METHOD 08/27/2025 11:31 AM [facility] RDW 14.3 12.1 - 16.2 % LAB HEMETOLOGY METHOD 08/27/2025 11:31 AM [facility] Platelets 294 150 - 450 K/mcL LAB HEMETOLOGY METHOD 08/27/2025 11:31 AM [facility] MPV 8.9 7.4 - 11.4 FL LAB HEMETOLOGY METHOD 08/27/2025 11:31 AM [facility] Neutrophils Relative 69.8 44.0 - 74.0 % LAB HEMETOLOGY METHOD 08/27/2025 11:31 AM [facility] Lymphocytes Relative 22.8 20.0 - 48.0 % LAB HEMETOLOGY METHOD 08/27/2025 11:31 AM [facility] Monocytes Relative 5.8 2.0 - 12.0 % LAB HEMETOLOGY METHOD 08/27/2025 11:31 AM [facility] Eosinophils Relative 1.0 0.0 - 6.0 % LAB HEMETOLOGY METHOD 08/27/2025 11:31 AM [facility] Basophils Relative 0.3 0.0 - 2.0 % LAB HEMETOLOGY METHOD 08/27/2025 11:31 AM [facility] Neutrophils Absolute 5.38 1.80 - 7.80 K/mcL LAB HEMETOLOGY METHOD 08/27/2025 11:31 AM [facility] Lymphocytes Absolute 1.76 1.00 - 3.20 K/mcL LAB HEMETOLOGY METHOD 08/27/2025 11:31 AM EDT [facility] Monocytes Absolute 0.45 0.00 - 0.80 K/mcL LAB HEMETOLOGY METHOD 08/27/2025 11:31 AM EDT [facility] Eosinophils Absolute 0.08 0.00 - 0.50 K/mcL LAB HEMETOLOGY METHOD 08/27/2025 11:31 AM EDT [facility] Basophils Absolute <0.03 0.00 - 0.20 K/mcL LAB HEMETOLOGY METHOD 08/27/2025 11:31 AM EDT [facility] Blood Venous blood specimen / Unknown Venipuncture / Unknown 08/27/2025 11:21 AM EDT 08/27/2025 11:29 AM EDT us George Freedman DO LAB BLOOD ORDERABLES Final Re sult [facility] [place] Reg. #:[id number] [address] [place] [address], * (ABNORMAL) Basic metabolic panel (08/27/2025 11:21 AM EDT) Sodium 138 135 - 145 mmol/L LAB CHEMISTRY METHOD [facility]25 [facility] Potassium 3.7 3.5 - 5.1 mmol/L LAB CHEMISTRY METHOD 08/27/2025 11:47 [facility] Chloride 105 98 - 107 mmol/L LAB CHEMISTRY METHOD 08/27/2025 11:47 [facility] CO2 29 24 - 32 mmol/L LAB CHEMISTRY METHOD 08/27/2025 11:47 [facility] Anion Gap 4(L) 5 - 14 LAB CHEMISTRY METHOD 08/27/2025 11:47 AM EDT [facility] Glucose 98 70 - 199 mg/dL LAB CHEMISTRY METHOD 08/27/2025 11:47 [facility] BUN 11 7 - 17 mg/dL LAB CHEMISTRY METHOD 08/27/2025 11:47 [facility] Creatinine 0.63 0.50 - 1.00 mg/dL LAB CHEMISTRY METHOD 08/27/2025 11:47 [facility] eGFR 116 >=60 mL/min/1. 73m2 LAB CHEMISTRY METHOD 08/27/2025 11:47 AM [facility] Comment:Calculation based on the Chronic Kidney Disease Epidemiology Collaboration (CKD-EPI) equation refit without adjustment for race. BUN/Creatinine Ratio 17.5 12.0 - 20.0 LAB CHEMISTRY METHOD 08/27/2025 11:47 [facility] Calcium 9.6 8.4 - 10.2 mg/dL LAB CHEMISTRY METHOD 08/27/2025 11:47 AM [facility] Blood Venous blood specimen / Unknown Venipuncture / Unknown 08/27/2025 11:21 AM EDT 08/27/2025 11:29 AM EDT George Freedman DO LAB BLOOD ORDERABLES Final Re sult [facility] [place] Reg. #:[id number] [address] [place] [address], [place] [phone] from Last 3 Months Insurance [facility] Care Teams Stock Cutter Relationship Specialty Start Date End Date David Martinez NP [address] [place], [place] PCP - General 10/08/23
--- OUTSIDE RECORDS SUMMARY | 2025-10-05 14:33 | XMS_ITS | Encounter Summary ---
Author Organization [facility] Address [address] [facility] [address] [place] [address] Phone Care Team Providers Care Electric Well Logging Operator Name Role Phone Melinda Martinez NP Primary Care Provider + Kait Kraus MD Unavailable Mark Rocha PA-C Unavailable + [phone] Encounter Details Date Type Department Care Team (Late st Contact Info) Description 08/26/2024 [place] 100e Generated VIRTUAL DEPARTMENT [address] [place] [phone] Unknown, Unknown, Social History Tobacco Use Types [...] Light PA-C - 08/26/2024 6:32 PM EDT [facility] OP Note, Brief Procedure Procedure Name: Laparoscopic [...] WH4 ESigned by: ANABEL TAVERAS MD(Pager:[phone] / [phone])on: 08/26/24@183 Documentation Started: 08/26/24 @ 183 Documentation time: 3.00 sharonda CC OTHER PROVIDER: PRIMARY CARE: DR MELINDA MARTINEZ MTDD * Anabel Taveras MD - 08/26/2024 12:00 AM EDT [facility] DATE OF PROCEDURE: 08/26/2024. PREOPERATIVE DIAGNOSIS: Chronic morbid obesity, (BMI of 48). POSTOPERATIVE DIAGNOSIS: Chronic morbid obesity, (BMI of 48). PROCEDURE: Laparoscopic Lovely-en-Y Gastric Bypass, Wedge Liver Biopsy. SURGEON: Dr. Anabel Taveras. HAND PAINT MIXER: LINUS Gonzalez. ANESTHESIA: General Endotracheal. INDICATIONS: This [...] The patient was also evaluated by a link and link knitting machine operator as to their emotional stability, coping mechanisms, [...] the pancreatico-biliary limb to the Lovely limb [id number] with interrupted 2-0 silk sutures. Adjoining enterotomies [...] record. FOCI DT: 1323 TD:08/27/24 TT:1500 ID: [id number] ANABEL TAVERAS MD electronically signed 08/29/24 0630 CC OTHER PROVIDER: PRIMARY CARE: UNLISTED PROVIDER documented in this encounter Plan of Treatment Not on file documented as of this encounter Visit Diagnoses Not on filedocumented in this encounter Care Teams Electric Well Logging Operator Relationship Specialty Start Date End Date Melinda Martinez NP [address] [facility] [place] [address] PCP - General Nurse Practitioner 05/30/24 Kait Kraus MD [address] [place] [address] [email or web address] Gastroenterology 11/10/24 Mark Rocha PA-C [address] [place] [address] [place] [id number] [email or web address] Physician Bus And Sys Integration Senior Manager 11/10/24 documented as of this encounter Additional Source Comments The information contained in this document represents components of the legal health record. It is not the complete legal health record.[facility]
--- OUTSIDE RECORDS SUMMARY | 2025-10-05 14:33 | XMS_ITS | Encounter Summary ---
Author Organization [facility] Address [address] [facility] [address] [place] [address] Phone Care Team Providers Care Precision Machine Operator Name Role Phone Melinda Martinez NP Primary Care Provider + Kait Kraus MD Unavailable Mark Rocha PA-C Unavailable + [phone] Encounter Details Date Type Department Care Team (Late st Contact Info) Description 08/28/2024 3Funnel Generated VIRTUAL DEPARTMENT [address] [place] [phone] Unknown, Unknown, Social History Tobacco Use Types [...] Gomez NP - 08/28/2024 10:17 AM EDT [facility] Patient Discharge (Text) Discharge Summary Admission [...] two week post operative appointment with a PA/DRIP PUMPER at the [facility]. Advance Care Plan: Full Code 22/06 Contact Information: For questions during office hours, contact the [facility] at [phone]. For urgent medical questions after hours, have the director oncology surgeon paged at [phone]. DC with Ischemic Stroke or TIA No [...] Rate 2.0 08/27 0320 ESigned by: JEREMIAS OGMEZ DRIP PUMPER(Pager:)on: 08/28/24@1034 Documentation Started: 08/28/24 @ 1017 Documentation time: 17.40 min CC OTHER PROVIDER: PRIMARY CARE: DR MELINDA MARTINEZ MTDD documented in this encounter Plan of Treatment Not on file documented as of this encounter Visit Diagnoses Not on filedocumented in this encounter Care Teams Precision Machine Operator Relationship Specialty Start Date End Date Melinda Martinez NP [facility] [place] [address] PCP - General Nurse Practitioner 05/30/24 Kait Kraus MD [facility] [address] [place] [address] [email or web address] Gastroenterology 11/10/24 Mark Rocha PA-C [address] [place] [address] [email or web address] Physician Manager Ob 11/10/24 documented as of this encounter Additional Source Comments The information contained in this document represents components of the legal health record. It is not the complete legal health record.[facility]
== END 2025-10-05 13:13 | disposition home or self-care (01) ==
LOC: HO.HWS 11:35
PROVIDERS: PCP Nurse Practitioner Family; Visit Provider Obstetrics & Gynecology
DX: Q50.5 Embryonic cyst of broad ligament (principal)
CPT/HCPCS: 99213

== ENCOUNTER 2025-11-02 08:44 | Outpatient (REF) | payer OTHER, SELFPAY ==
[2025-11-03 00:20] LABS: Bacterial Vaginosis PCR POSITIVE (Negative); Candida Group PCR NOT DETECTED (Not Detect); Candida glab krusei PCR NOT DETECTED (Not Detect); Trichomonas vaginalis PCR NOT DETECTED (Not Detect)
[2025-11-03 00:51] LABS: CT PCR NOT DETECTED (Not Detect.); NG PCR NOT DETECTED (Not Detect.)
== END 2025-11-02 08:45 | disposition home or self-care (01) ==
LOC: HO.LNP 08:44
PROVIDERS: PCP Nurse Practitioner Family; Visit Provider Obstetrics & Gynecology
DX: Z20.2 Contact with and (suspected) exposure to infections with a predominantly sexual mode of transmission (principal); N76.0 Acute vaginitis; B96.89 Other specified bacterial agents as the cause of diseases classified elsewhere
CPT/HCPCS: 81515; 87491; 87591

== ENCOUNTER 2025-11-02 08:44 | Outpatient (AMB) | payer OTHER, SELFPAY ==
--- NOTE | 2025-11-02 08:51 | A.OFFVIS_ITS ---
Vital Signs 11/02/25 08:52 Height 5 ft 6 in Weight 211 lb BMI 34.1 BP 112/66 Intake Visit Reasons: mirena insertion Explosive Technician Required: No Information Interpreted: non-clinical & clinical Drilling Engineering Manager: Drilling Engineering Manager Present (Marily RITCHIE) Accompanied by: Self / Same As Patient Allergies No Known Allergies Allergy (Verified 11/02/25 09:03) Is last menstrual period known: Yes Last menstrual period: 10/30/25 HPI Comments Details: Presenting for Mirena insertion had unprotected intercourse today's day 4 of her LMP. [facility] Medical History Meralgia paresthetica of left side Spasm of left piriformis muscle Migraines GERD (gastroesophageal reflux disease) Grief reaction Extreme obesity Seasonal allergies Surgical History Lipoma Hx of surgical procedure (11/14/24) Gastric bypass status for obesity Hx of breast reduction, elective Hx of tonsillectomy Family History Paternal Uncle No problems noted. 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 Current occupational exposures/hazards: No Sexual orientation: Straight/Heterosexual Gender identity: Female Cognitive needs: No Hearing needs: No Vision needs: No Female Reproductive History Menstrual Age of Menarche: 13 Date of last menstrual period: 10/30/25 Review of Systems Const All systems reviewed & are unremarkable except as noted in HPI and below Physical Exam Vital Signs: Last Vital Signs BP 112/66 11/02/25 08:52 BMI result Body Mass Index 34.1 General: Yes no CVA tenderness External Female Exam: normal external appearance and normal appearance of the urethra Speculum Exam - Vagina: normal appearance of the vagina, normal palpation, no lesions and no masses Speculum Exam - Cervix: normal appearance of the cervix, normal palpation, no lesions, no masses and nontender Bimanual exam- vagina & uterus: normal bimanual exam, normal palpation, uterine size normal, normal palpation, uterine shape normal, No Cervical tenderness present and non-tender Bimanual Exam- Adnexa, other: normal adnexae Back/Spine/Pelvis Back: no CVA tenderness Assessment & Plan Assessment & Plan (1) Screen for STD (sexually transmitted disease): Code(s): Z11.3 - Encounter for screening for infections with a predominantly sexual mode of transmission Category: Medical Plan: STD screening tests done includes: BV panel for trichomonas, GC/CT will send patient for serology std screening for HIV, RPR, Hep b s Ag, HepC Ab. Instructions given the patient to call tomorrow day 5 of LMP if all STD screens are negative will schedule Mirena IUD insertion if there is evidence of an infection that needs to be treated , we will reschedule day 1-5 our next cycle and to schedule a follow-up appointment for repeat serology screen in 6 months for possible false negatives. Orders: Orders Hepatitis C Antibody Today Z20.2 - Contact with and (suspected) exposure to infections with a predominantly sexual mode of transmission Syphilis Screen Today Z20.2 - Contact with and (suspected) exposure to infections with a predominantly sexual mode of transmission Hepatitis B Surface Antigen Today Z20.2 - Contact with and (suspected) exposure to infections with a predominantly sexual mode of transmission HIV Ab/Ag Today Z20.2 - Contact with and (suspected) exposure to infections with a predominantly sexual mode of transmission Coding Level of Care Code Est Pt Level 3 (24815) Diagnoses Screen for STD (sexually transmitted disease) Z11.3
[2025-11-02 08:52] VITALS: BP 112/66; BMI 34.1
--- OUTSIDE RECORDS SUMMARY | 2025-11-02 09:26 | XMS_ITS | Clinical Summary ---
Author Organization [facility] Address [address] [place] [address] Phone Care Team Providers Care Conference Services Coordinator Name Role Phone David Martinez NP Primary Care Provider + Kait Kraus MD Unavailable Mark Rocha PA-C Unavailable [phone] Allergies No known active allergies Medications cholecalciferol [...] topic Medical Devices Not on file Insurance ACO Care Teams Conference Services Coordinator Relationship Specialty Start Date End Date David Martinez NP [address] [facility] [place] [address] PCP - General Nurse Practitioner 05/30/24 Kait Kraus MD [facility] [address] [place] [address] [email or web address] [email or web address] 11/10/24 Mark Rocha PA-C [address] [place] [address] [email or web address] [email or web address] Psychological Operations 11/10/24 Additional Source Comments The information contained in this document represents components of the legal health record. It is not the complete legal health record.[facility]
--- OUTSIDE RECORDS SUMMARY | 2025-11-02 09:26 | XMS_ITS | Clinical Summary ---
Author Organization [facility] Address [address] [place] [address] Phone Care Team Providers Care Desktop Publishing Specialist Name Role Phone David Martinez NP Primary Care Provider [phone] Allergies No known active allergies Medications docusate [...] EDT - 08/27/2025 2:16 PM EDT Emergency [facility] Emergency [address] [place] [phone] George Freedman DO Vagal reaction (Primary Dx) [...] Depression Screening 11/30/2024 COVID-19 Vaccine ( - 2024-2 6 season) 2025 Influenza Vaccine (#1) 2025 RSV [...] ED Physician in the absence of a cobbler mckay: yes Previous ECG: Previous ECG: Unavailable Rate: [...] Signed Date: 08/27/2025 13:29 ET Workstation ID: [id number] Transcribed By: Self Edit Transcribed Date: 08/27/2025 [...] patient dose, but values generated from the [employer] acquisition factors. This CT examination was performed [...] Signed Date: 08/27/2025 13:29 ET Workstation ID: [id number] Transcribed By: Self Edit Transcribed Date: 08/27/2025 13:25 ET us George Freedman DO IMG CT PROCEDURES Final Resul t * POC , urine manually resulted (08/27/2025 12:50 PM EDT) HCG, Ur POC Negative Negative POC hCG Int QC Pass? Yes Yes EXPIRATION DATE POC 01/29/2027 LOT NUMBER POC [id number] Urine Urine specimen obtained by clean catch procedure / Unknown 08/27/2025 12:50 PM EDT George Freedman DO POINT OF CARE TEST ENTER/EDIT ORDERABLES Final Result * (ABNORMAL) Urinalysis with reflex microscopic (08/27/2025 12:45 PM EDT) [facility] Color, Urine Yellow Colorless, Yellow LAB URINALYSIS - AUTOMATED METHOD 08/27/2025 1:03 PM EDT [facility] Clarity, Urine Clear Clear LAB URINALYSIS - AUTOMATED METHOD [facility]/27[facility]2025 [facility] Specific [place] Urine 1.010 1.005 - 1.030 LAB URINALYSIS - AUTOMATED METHOD 08/27/2025 1:03 PM EDT [facility] pH, Urine 6.0 5.0 - 8.0 pH LAB URINALYSIS - AUTOMATED METHOD 08/27/2025 1:03 PM [facility] Leukocytes, Urine Trace(A) Negative WBCs/mcL LAB URINALYSIS - AUTOMATED METHOD 08/27/2025 1:03 PM [facility] Nitrite, Urine Negative Negative LAB URINALYSIS - AUTOMATED METHOD 08/27/2025 1:03 PM [facility] Protein, Urine Negative Negative mg/dL LAB URINALYSIS - AUTOMATED METHOD 08/27/2025 1:03 PM EDT [facility] Glucose, Urine Negative Negative mg/dL LAB URINALYSIS - AUTOMATED METHOD 08/27/2025 1:03 PM EDT [facility] Ketones, Urine Negative Negative mg/dL LAB URINALYSIS - AUTOMATED METHOD 08/27/2025 1:03 PM EDT [facility] Blood, Urine Negative Negative mg/dL LAB URINALYSIS - AUTOMATED METHOD 08/27/2025 1:03 PM EDT [facility] Urine Urine specimen obtained by clean catch procedure / Unknown Non-blood Collection / Unknown 08/27/2025 12:45 PM EDT 08/27/2025 12:50 PM EDT us George Freedman DO LAB URINE ORDERABLES Final Re sult Performing Organization Address City/[facility]/ZIP Co de Phone Number [facility] Reg. #:[id number] [address] [place] [address], [place] [phone] * Lactate, with Reflex (08/27/2025 12:09 PM EDT) LACTIC ACID 1.1 <=2.0 mmol/L LAB BLOOD GAS METHOD 08/27/2025 12:17 PM EDT [facility] Blood Venous blood specimen / Unknown Venipuncture / Unknown 08/27/2025 12:09 PM EDT 08/27/2025 12:12 PM EDT us George Freedman DO LAB BLOOD ORDERABLES Final Re sult [facility] Reg. #:[id number] [address] [place] [address], [place] [phone] * HIV 1,2 antibody, p24 antigen with reflex to differentiation (08/27/2025 12:09 PM EDT) [facility] HIV Combo AB/AG Negative Negative LAB CHEMISTRY METHOD 08/27/2025 10:20 PM EDT [facility] Blood Venous blood specimen / Unknown Venipuncture / Unknown 08/27/2025 12:09 PM EDT 08/27/2025 12:12 PM EDT Narrative [facility] - 08/27/2025 10:20 PM EDT Nonreactive result does not rule out HIV infection. us George Freedman DO LAB BLOOD ORDERABLES Final Re sult Performing Organization Address City/[facility]/ZIP Co de Phone Number [facility] [address] [place] [address], [place] [phone] * ECG 12 lead (08/27/2025 11:25 AM EDT) [facility] Ventricular Rate ECG 67 BPM GEMUSE Atrial Rate 67 BPM GEMUSE P-R Interval 142 ms GEMUSE QRS Duration 88 ms GEMUSE Q-T Interval 382 ms GEMUSE QTc 403 ms GEMUSE P Wave Murray 25 degrees GEMUSE R Murray 18 degrees GEMUSE T Murray 13 degrees GEMUSE ECG Interpretation Normal sinus rhythm Normal ECG No previous ECGs available Confirmed by Burton Bautista ([id number]) on 08/28/2025 4:38:25 PM GEMUSE 08/27/2025 11:2 5 AM EDT 08/28/2025 4:38 PM EDT us George Freedman DO ECG ORDERABLES Final Result GEMUSE * Troponin I high sensitivity (08/27/2025 11:21 AM EDT) [facility] High Sensitivity Troponin I <2 0 - 14 ng/L LAB CHEMISTRY METHOD 08/27/2025 11:57 AM EDT [facility] Blood Venous blood specimen / Unknown Venipuncture / Unknown 08/27/2025 11:21 AM EDT 08/27/2025 11:29 AM EDT Narrative [facility] - 08/27/2025 11:57 AM EDT HSTnI results stratify to HIGH RISK category if any value >100 ng/L or delta at 1 hour is greater than or equal to 15 ng/L (male and female). Note: Delta values are not applicable if symptoms began more than 12 hours pre-arrival. Risk stratification should include the calculation of the HEART score. Testing performed using [employer] Access AccuTnI+3 Assay. us George Freedman DO LAB BLOOD ORDERABLES Final Re sult [facility] [place] Reg. #:[id number] [address] [place] [address], * CBC auto differential (08/27/2025 11:21 AM EDT) WBC 7.7 4.0 - 10.5 K/[facility] LAB HEMETOLOGY METHOD 08/27/2025 11:31 [facility] RBC 4.41 4.20 - 5.40 M/[facility] LAB HEMETOLOGY METHOD 08/27/2025 11:31 AM [facility] Hemoglobin 13.3 12.5 - 16.0 g/dL LAB HEMETOLOGY METHOD 08/27/2025 11:31 AM [facility] Hematocrit 39.0 37.0 - 47.0 % LAB HEMETOLOGY METHOD 08/27/2025 11:31 AM [facility] MCV 88.4 78.0 - 100.0 FL LAB HEMETOLOGY METHOD 08/27/2025 11:31 AM [facility] MCH 30.2 25.0 - 33.0 pcg LAB HEMETOLOGY METHOD 08/27/2025 11:31 AM [facility] MCHC 34.1 32.0 - 36.0 g/dL LAB HEMETOLOGY METHOD 08/27/2025 11:31 AM [facility] RDW 14.3 12.1 - 16.2 % LAB HEMETOLOGY METHOD 08/27/2025 11:31 AM [facility] Platelets 294 150 - 450 K/mcL LAB HEMETOLOGY METHOD 08/27/2025 11:31 AM [facility] MPV 8.9 7.4 - 11.4 FL LAB HEMETOLOGY METHOD 08/27/2025 11:31 AM [facility] Neutrophils Relative 69.8 44.0 - 74.0 % LAB HEMETOLOGY METHOD 08/27/2025 11:31 AM [facility] Lymphocytes Relative 22.8 20.0 - 48.0 % LAB HEMETOLOGY METHOD 08/27/2025 11:31 AM [facility] Monocytes Relative 5.8 2.0 - 12.0 % LAB HEMETOLOGY METHOD 08/27/2025 11:31 AM [facility] Eosinophils Relative 1.0 0.0 - 6.0 % LAB HEMETOLOGY METHOD 08/27/2025 11:31 AM [facility] Basophils Relative 0.3 0.0 - 2.0 % LAB HEMETOLOGY METHOD 08/27/2025 11:31 AM [facility] Neutrophils Absolute 5.38 1.80 - 7.80 K/mcL LAB HEMETOLOGY METHOD 08/27/2025 11:31 AM [facility] Lymphocytes Absolute 1.76 1.00 - 3.20 K/mcL LAB HEMETOLOGY METHOD 08/27/2025 11:31 AM EDT [facility] Monocytes Absolute 0.45 0.00 - 0.80 K/mcL LAB HEMETOLOGY METHOD 08/27/2025 11:31 AM EDT [facility] Eosinophils Absolute 0.08 0.00 - 0.50 K/mcL LAB HEMETOLOGY METHOD 08/27/2025 11:31 AM EDT [facility] Basophils Absolute <0.03 0.00 - 0.20 K/mcL LAB HEMETOLOGY METHOD 08/27/2025 11:31 AM EDT [facility] Blood Venous blood specimen / Unknown Venipuncture / Unknown 08/27/2025 11:21 AM EDT 08/27/2025 11:29 AM EDT us George Freedman DO LAB BLOOD ORDERABLES Final Re sult [facility] [place] Reg. #:[id number] [address] [place] [address], * (ABNORMAL) Basic metabolic panel (08/27/2025 11:21 AM EDT) Sodium 138 135 - 145 mmol/L LAB CHEMISTRY METHOD 08/27/2025 11:47 [facility] Potassium 3.7 3.5 - 5.1 mmol/L LAB CHEMISTRY METHOD 08/27/2025 11:47 AM [facility] Chloride 105 98 - 107 mmol/L LAB CHEMISTRY METHOD 08/27/2025 11:47 AM [facility] CO2 29 24 - 32 mmol/L LAB CHEMISTRY METHOD 08/27/2025 11:47 AM [facility] Anion Gap 4(L) 5 - 14 LAB CHEMISTRY METHOD 08/27/2025 11:47 AM EDT [facility] Glucose 98 70 - 199 mg/dL LAB CHEMISTRY METHOD 08/27/2025 11:47 AM [facility] BUN 11 7 - 17 mg/dL LAB CHEMISTRY METHOD 08/27/2025 11:47 AM [facility] Creatinine 0.63 0.50 - 1.00 mg/dL LAB CHEMISTRY METHOD 08/27/2025 11:47 AM [facility] eGFR 116 >=60 mL/min/1. 73m2 LAB CHEMISTRY METHOD 08/27/2025 11:47 AM [facility] Comment:Calculation based on the Chronic Kidney Disease Epidemiology Collaboration (CKD-EPI) equation refit without adjustment for race. BUN/Creatinine Ratio 17.5 12.0 - 20.0 LAB CHEMISTRY METHOD 08/27/2025 11:47 AM [facility] Calcium 9.6 8.4 - 10.2 mg/dL LAB CHEMISTRY METHOD 08/27/2025 11:47 AM [facility] Blood Venous blood specimen / Unknown Venipuncture / Unknown 08/27/2025 11:21 AM EDT 08/27/2025 11:29 AM EDT George Freedman DO LAB BLOOD ORDERABLES Final Re sult [facility] [place] Reg. #:[id number] [address] [place] [address], [place] [phone] from Last 3 Months Insurance [facility] Care Teams Desktop Publishing Specialist Relationship Specialty Start Date End Date David Martinez NP [address] [place], [place] PCP - General 10/08/23
--- OUTSIDE RECORDS SUMMARY | 2025-11-02 09:27 | XMS_ITS | Encounter Summary ---
Author Organization [facility] Address [address] [facility] [address] [place] [address] Phone Care Team Providers Care Music Store Manager Name Role Phone Melinda Martinez NP Primary Care Provider + Kait Kraus MD Unavailable Mark Rocha PA-C Unavailable + [phone] Encounter Details Date Type Department Care Team (Late st Contact Info) Description 08/26/2024 ENJ[facility] Generated VIRTUAL DEPARTMENT [address] [place] [phone] Unknown, Unknown, Social History Tobacco Use Types [...] Light PA-C - 08/26/2024 6:32 PM EDT [facility] [place] OP Note, Brief Procedure Procedure Name: [...] WH4 ESigned by: ANABEL TAVERAS MD(Pager:[phone] / [phone])on: 08/26/24@183 Documentation Started: 08/26/24 @ 183 Documentation time: 3.00 sharonda CC OTHER PROVIDER: PRIMARY CARE: DR MELINDA MARTINEZ MTDD * Anabel Taveras MD - 08/26/2024 12:00 AM EDT [facility] [place] DATE OF PROCEDURE: 08/26/2024. PREOPERATIVE DIAGNOSIS: Chronic morbid obesity, (BMI of 48). POSTOPERATIVE DIAGNOSIS: Chronic morbid obesity, (BMI of 48). PROCEDURE: Laparoscopic Lovely-en-Y Gastric Bypass, Wedge Liver Biopsy. SURGEON: Dr. Anabel Taveras. FLASK CLEANER: LINUS Gonzalez. ANESTHESIA: General Endotracheal. INDICATIONS: This [...] The patient was also evaluated by a swabber as to their emotional stability, coping mechanisms, [...] the pancreatico-biliary limb to the Lovely limb [id number] with interrupted 2-0 silk sutures. Adjoining enterotomies [...] record. FOCI DT: 1323 TD:08/27/24 TT:1500 ID: [id number] ANABEL TAVERAS MD electronically signed 08/29/24 0630 CC OTHER PROVIDER: PRIMARY CARE: UNLISTED PROVIDER documented in this encounter Plan of Treatment Not on file documented as of this encounter Visit Diagnoses Not on filedocumented in this encounter Care Teams Music Store Manager Relationship Specialty Start Date End Date Melinda Martinez NP [address] [facility] [place] [address] PCP - General Nurse Practitioner 05/30/24 Kait Kraus MD [address] [place] [address] [email or web address] Gastroenterology 11/10/24 Mark Rocha PA-C [address] [place] [address] [place] [id number] [email or web address] Physician Health And Safety Consultant 11/10/24 documented as of this encounter Additional Source Comments The information contained in this document represents components of the legal health record. It is not the complete legal health record.[facility]
--- OUTSIDE RECORDS SUMMARY | 2025-11-02 09:27 | XMS_ITS | Clinical Summary ---
Author Organization [email or web address] [facility] Prior to 04/29/[address] [place] [address] Care Team Providers Care Culturist Name Role Phone David Martinez Primary Care Provider [phone] Medications Medication Sig Dispensed Refills Start Date [...] of Treatment Not on file Care Teams Culturist Relationship Specialty Start Date End Date David Martinez [address] [place] [address] PCP - General Family Medicine 04/05/24
--- OUTSIDE RECORDS SUMMARY | 2025-11-02 09:27 | XMS_ITS | Encounter Summary ---
Author Organization [facility] Address [address] [facility] [address] [place] [address] Phone Care Team Providers Care Chronometer Assembler And Adjuster Name Role Phone Melinda Martinez NP Primary Care Provider + Kait Kraus MD Unavailable Mark Rocha PA-C Unavailable + [phone] Encounter Details Date Type Department Care Team (Late st Contact Info) Description 08/28/2024 [employer] Generated VIRTUAL DEPARTMENT [address] [place] [phone] Unknown, Unknown, Social History Tobacco Use Types [...] Gomez NP - 08/28/2024 10:17 AM EDT [facility] Patient Discharge (Text) Discharge Summary Admission and [...] two week post operative appointment with a PA/APPLIANCE FIXER at the [facility]. Advance Care Plan: Full Code 22/06 Contact Information: For questions during office hours, contact the [facility] at [phone]. For urgent medical questions after hours, have the software verification engineer surgeon paged at [phone]. DC with Ischemic Stroke or TIA No [...] 2.0 08/27 0320 ESigned by: JEREMIAS GOMEZ APPLIANCE FIXER(Pager:)on: 08/28/24@1034 Documentation Started: 08/28/24 @ 1017 Documentation time: 17.40 min CC OTHER PROVIDER: PRIMARY CARE: DR MELINDA MARTINEZ MTDD documented in this encounter Plan of Treatment Not on file documented as of this encounter Visit Diagnoses Not on filedocumented in this encounter Care Teams Chronometer Assembler And Adjuster Relationship Specialty Start Date End Date Melinda Martniez NP [facility] [place] [address] PCP - General Nurse Practitioner 05/30/24 Kait Kraus MD [facility] [address] [place] [address] [email or web address] Gastroenterology 11/10/24 Mark Rocha PA-C [address] [place] [address] [email or web address] Physician Gem Setter 11/10/24 documented as of this encounter Additional Source Comments The information contained in this document represents components of the legal health record. It is not the complete legal health record.[facility]
--- OUTSIDE RECORDS SUMMARY | 2025-11-02 09:28 | XMS_ITS | Encounter Summary ---
Author Organization [facility] Address [address] [facility] [address] [place] [address] Phone Care Team Providers Care Assistant Case Manager Name Role Phone Melinda Martinez NP Primary Care Provider + Kait Kraus MD Unavailable Mark Rocha PA-C Unavailable + [phone] Encounter Details Date Type Department Care Team ([facility] st Contact Info) Description 11/25/2024 [employer] [employer] Generated VIRTUAL DEPARTMENT [address] [place] [phone] Unknown, Unknown, Social History Tobacco Use Types [...] 11/25/2024 1:38 PM ESTAssociated Order(s): ENDOSCOPY PROCEDURE [facility] Patient Name: Suzette Carlson Procedure Date: 11/25/2024 [...] 9:50 AM EST) Nicotine <2 () ng/mL [facility] (CLIA# [id number]) Cotinine <2 () ng/mL [facility] (CLIA# [id number]) 7-DX-Cfhiqenq <2 () ng/mL [facility] (CLIA# [id number]) Nornicotine <2 () ng/mL [facility] (CLIA# [id number]) NOR-Cotinine <2 () ng/mL [facility] (CLIA# [id number]) Anabasine <2 () ng/mL [facility] (CLIA# [id number]) Comment: Individuals exposed to second hand or passive tobacco smoke may demonstrate concentrations of nicotine and metabolites greater than those indicated for non- smokers. Reference Ranges: Active Non-Smoker Tobacco User (ng/mL) (ng/mL) Nicotine <17 200-700 Cotinine <20 300-1300 9-KF-Rsfpzfka <50 3000-04911 Nor-Nicotine <2 30-900 Nor-Cotinine <2 Not Established Anabasine <2 10-500 This test was developed and its analytical performance characteristics have been determined by [employer] [place], [place]. It has not been cleared or approved by the U.S. Food and Drug Administration. This assay has been validated pursuant to the CLIA regulations and is used for clinical purposes. Test performed at [employer] [facility] [place] [id number] [place] [address] Director: Bolivar Dickey M.D., Ph.D.,Director of Laboratories 12/09/2024 9:50 AM EST 12/09/2024 12:40 PM EST Ector Light PA-C URINE ORDERABLES Final Resul t [facility] (CLIA# [id number]) [address] [place] [address] * Type and Screen (ABO,Rh,Antibody Screen) (12/09/2024 9:50 AM EST) Patient ABO/Rh O POSITIVE [facility] (CLIA# [id number]) Antibody Screen NEGATIVE [facility] (CLIA# [id number]) 12/09/2024 9:50 AM EST 12/09/2024 12:40 PM EST Ector Light PA-C LAB BLOOD BANK TEST ORDERABL ES Final Result Performing Organization Address [facility]/ZIP Co de Phone Number [facility] (CLIA# [id number]) [address] [place] [address] * (ABNORMAL) Iron and iron binding capacity (12/09/2024 9:50 AM EST) Iron 23(L) 50 - 170 ug/dL [facility] (CLIA# [id number]) Total Iron Binding Capacity 404 250 - 425 ug/dL [facility] (CLIA# [id number]) Percent Iron Saturation 6(L) 17 - 50 % [facility] (CLIA# [id number]) 12/09/2024 9:50 AM EST 12/09/2024 12:54 PM EST us Ayesha Wooten PA-C LAB BLOOD BKR ORDERABLE S Final Result Performing Organization Address [facility]/ZIP Co de Phone Number [facility] (CLIA# [id number]) [address] [place] [address] * HCG, urine (12/09/2024 9:50 AM EST) Test, Urine NEGATIVE NEGATIVE [facility] (CLIA# [id number]) Comment: If a negative result is obtained and expected, recollection after 48-72 hours is suggested. 12/09/2024 9:50 AM EST 12/09/2024 12:40 PM EST us Ector Light PA-C LAB URINE ORDERABLES Final R esult Performing Organization Address City/[facility]/ZIP Co de Phone Number [facility] (CLIA# [id number]) [address] [place] [address] * ENDOSCOPY PROCEDURE (11/25/2024 1:38 PM EST) 11/25/2024 1:38 PM EST Narrative Procedure Note Kait Kraus MD - 11/25/2024 1:38 PM EST [facility] Patient Name: Suzette Carlson Procedure [...] CC OTHER PROVIDER: PRIMARY CARE: SUNDAY ELENA,MELINDA RENST us Kait Kraus MD GI PROCEDURE ORDERABLES Final Re sult documented in this encounter Visit Diagnoses Not on filedocumented in this encounter Care Teams Assistant Case Manager Relationship Specialty Start Date End Date Melinda Martinez, KASSY [facility] [place] [address] PCP - General Nurse Practitioner 05/30/24 Kait Kraus MD [address] [place] [address] Gastroenterology 11/10/24 Mark Rocha PA-C [address] [place] [address] Physician Private Branch Exchange Service Adviser 11/10/24 documented as of this encounter Additional Source Comments The information contained in this document represents components of the legal health record. It is not the complete legal health record.[facility]
== END 2025-11-02 10:01 | disposition home or self-care (01) ==
LOC: HO.HWS 08:45
PROVIDERS: PCP Nurse Practitioner Family; Visit Provider Obstetrics & Gynecology
DX: Z11.3 Encounter for screening for infections with a predominantly sexual mode of transmission (principal)
CPT/HCPCS: 99213